=== PATIENT | male | born 1960 | race Caucasian/White ===

== ENCOUNTER 2017-05-24 09:55 | Emergency (ER) | payer OTHER, SELFPAY ==
[2017-05-24 10:23] VITALS: BP 124/84; PULSE 97; RESP 16; TEMP 36.9; O2SAT 96; BMI 25.1
--- NOTE | 2017-05-24 10:50 | ED_ITS ---
[facility] [place] Disposition Clinical Impression: Abdominal tenderness Qualifiers: Abdominal location: unspecified location Presence of rebound: not specified Qualified Code(s): R10.819 - Abdominal tenderness, unspecified site Disposition: Still a Patient Condition on Discharge: Good Referrals: Alda France [Primary Care Provider] - Time of Disposition: 10:55 Medical Decision Making - Medical Records Medical records reviewed: Yes: I reviewed the patient's medical records. Vital Signs: 05/24/17 10:23 Temperature 98.4 F Temperature Source Temporal Artery Scan Pulse Rate [Right] 97 H Respiratory Rate 16 Blood Pressure [Right Arm] 124/84 Blood Pressure Mean [Right Arm] 97 Blood Pressure Source [Right Arm] Automatic Cuff Blood Pressure Position [Right Arm] Sitting 02 Sat by Pulse Oximetry 96 Oxygen Delivery Method Room Air - Physician Consults Physician Consulted: Dr Muro Reason -: Pt condition, Other Comment/Response: Spoke with Dr Santana ER physician about patient and patient presentation and complain. 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 Recommended to patient that he go to main ER for further testing and evaluation for abdominal pain. Patient transfered to Main ER to the care of Dr Santana - Jamie Inquiry Pt receiving controlled substance: No Jamie was queried for this patient: No [facility] [place] HPI - General Stated complaint: back pain, no ao Mode of Arrival: Ambulatory Source of Information: Patient Limitations: No Limitations Description of Symptoms (Recalled from Triage Doc. by RN): LEFT LOW BACK PAIN LEFT FLANK PAIN X3 PAINS HEENT Symptoms (Recalled from RN notes): No Resp Symptoms (Recalled from RN notes): No Skin Symptoms (Recalled from RN notes): No MS Symptoms (Recalled from RN notes): No Functional Status (Recalled from RN notes): N - History of Present Illness Provider Complaint: Patient states that he was changing a tire last week and hurt his lower back. State that he seen his family doctor for it and was given some medication States that for the last 4 days it has continued to get worse. 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 denies weakness in legs, denies trouble with urinating or bowel movements denies fever - Related Data Allergies Allergy/AdvReac Type Severity Reaction Status Date / Time No Known Allergies Allergy Verified 05/24/17 10:27 - Worker's Comp Is this a Worker's Comp case?: No [facility] History I have reviewed the patient's past medical history: Yes - Social History Smoking Status: Current every day smoker Tobacco Type: cigarettes Alcohol Intake: never - Psychiatric History Expresses thoughts of harming self/others: None Suicide Plan Description: No Plan ROS Obtained: Yes All systems reviewed & no additional complaints - Gastrointestinal Gastrointestingal: Reports: abdominal pain - Musculoskeletal Musculoskeletal: Reports back pain, Reports muscle aches, Denies numbness, Denies radiating pain into limb Physical Exam - General General appearance: alert, in no apparent distress - Neck Neck exam: Present: no
[2017-05-24 10:54] VITALS: BP 156/90; PULSE 71; RESP 18; TEMP 36.7; O2SAT 97; BMI 25.2
--- NOTE | 2017-05-24 11:10 | HMH.EDABDPAI ---
ED Disposition Clinical Impression: Low back pain, Prostatic hypertrophy, Pneumonia, Constipation, Secondary polycythemia Abdominal tenderness Qualifiers: Abdominal location: unspecified location Presence of rebound: not specified Qualified Code(s): R10.819 - Abdominal tenderness, unspecified site Disposition: Still a Patient Condition on Discharge: Fair Additional Instructions: Discussed the CT report in full details with the patient and informing that informed him that he needs to stop smoking because of his secondary to have strokes. I stressed that he needs to follow-up with Dr. Fernandes and his primary care physician on the abnormal CT report. Verbalized understanding is on the bedside agreeable. 1- stop smoking . 2- ceftin 500 mg po bid x 10 days. 3- zithromax. 3- mobic 7.5 mg po bid. 4- increase vegetables and dried fruits. 5- follow up with Dr France in AM. 6- take ct report and films to Dr Fernandes. in AM 7- return i fnot better. Prescriptions: Azithromycin [Zithromax 250mg tab] 250 mg PO DIRECTED #6 tab cefUROXime axetil [Ceftin 250mg Tablet] 500 mg PO BID #14 tab Meloxicam [Mobic 7.5mg Tab] 7.5 mg PO BID PRN #20 tab PRN Reason: Moderate Pain Referrals: Alda France [Primary Care Provider] - - Critical Care Critical Care Time: No Attestation: On 05/24/17, the high probability of a clinically significant, sudden or life threatening deterioration of the following system(s) required my full and direct attention, intervention and personal management. The time I documented below is in addition to time spent performing reported procedures but includes the following listed in this critical care notation. Medical Decision Making Vital Signs: 05/24/17 10:23 05/24/17 10:54 Temperature 98.4 F 98.0 F Temperature Source Temporal Artery Scan Oral Pulse Rate [Right] 97 H 71 Respiratory Rate 16 18 Blood Pressure [Right Arm] 124/84 156/90 Blood Pressure Mean [Right Arm] 97 112 Blood Pressure Source [Right Arm] Automatic Cuff Automatic Cuff Blood Pressure Position [Right Arm] Sitting Sitting 02 Sat by Pulse Oximetry 96 97 Oxygen Delivery Method Room Air Room Air - Lab Data Lab Results 05/24/17 11:10: WBC 4.6 L, RBC 6.83 H, Hgb 19.5 H*, Hct 59.4 H, MCV 86.9, MCH 28.3, MCHC 32.6, RDW 13.3, Plt Count 144, MPV 8.2, Neut % (Auto) 42.9, Lymph % (Auto) 44.0, [place] % (Auto) 11.0 H, Eos % (Auto) 0.8, Baso % (Auto) 1.2, Neut # (Auto) 2.0, Lymph # (Auto) 1.9, [place] # (Auto) 0.5, Eos # (Auto) 0.0, Baso # (Auto) 0.1 05/24/17 11:10: Sodium 133 L, Potassium 3.8, Chloride 98, Carbon Dioxide 30, Anion Gap 8.8, BUN 20 H, Creatinine 1.02, Estimated Creat Clear 90, Estimated GFR 76, Est GFR ( Amer) 92, Glucose 106, Calcium 8.3 L, Total Bilirubin 0.4, AST 26, ALT 31, Alkaline Phosphatase 86, Troponin I < 0.02, Total Protein 7.4, Albumin 3.6, Globulin 3.8 H, Albumin/Globulin Ratio 0.9 L, Lipase 74 Result diagrams: 05/24/17 11:10 05/24/17 11:10 Orders (Tests/Meds): ED MEDICATIONS Discontinued Medications Generic Name Dose Route Start Last Admin Trade Name Freq PRN Reason Stop Dose Admin Diatrizoate Meglum/Diatrizoate Sod 30 ml 05/24/17 11:12 05/24/17 11:13 Gastrografin 66%-10% 30ml PO 05/24/17 11:13 30 ml ONCE ONE Administration Famotidine 20 mg 05/24/17 11:09 05/24/17 11:26 Pepcid 20mg/2ml Vial IV 05/24/17 11:10 20 mg ONCE ONE Administration Sodium Chloride 500 mls @ 999 mls/hr 05/24/17 11:15 05/24/17 11:15 Sod Chlor 0.9% 1000ml Bag IV 05/24/17 11:45 Not Given .Q31M CASIMIRO Sodium Chloride 1,000 mls @ 999 mls/hr 05/24/17 11:30 05/24/17 11:26 Sod Chlor 0.9% 1000ml Bag IV 05/24/17 12:30 999 mls/hr .Q1H1M CASIMIRO Administration Iopamidol 75 ml 05/24/17 12:55 05/24/17 12:56 [id number]; 75ml Vial IV 05/24/17 12:56 75 ml ONCE ONE Administration Ketorolac Tromethamine 15 mg 05/24/17 11:09 05/24/17 11:26 Toradol 30mg/Ml
--- NOTE | 2017-05-24 11:14 | ED_ITS ---
ED Disposition Clinical Impression: Low back pain, Prostatic hypertrophy, Pneumonia, Constipation, Secondary polycythemia Abdominal tenderness Qualifiers: Abdominal location: unspecified location Presence of rebound: not specified Qualified Code(s): R10.819 - Abdominal tenderness, unspecified site Disposition: Still a Patient Condition on Discharge: Fair Additional Instructions: Discussed the CT report in full details with the patient and informing that informed him that he needs to stop smoking because of his secondary to have strokes. I stressed that he needs to follow-up with Dr. Fernandes and his primary care physician on the abnormal CT report. Verbalized understanding is on the bedside agreeable. 1- stop smoking . 2- ceftin 500 mg po bid x 10 days. 3- zithromax. 3- mobic 7.5 mg po bid. 4- increase vegetables and dried fruits. 5- follow up with Dr France in AM. 6- take ct report and films to Dr Fernandes. in AM 7- return i fnot better. Prescriptions: Azithromycin [Zithromax 250mg tab] 250 mg PO DIRECTED #6 tab cefUROXime axetil [Ceftin 250mg Tablet] 500 mg PO BID #14 tab Meloxicam [Mobic 7.5mg Tab] 7.5 mg PO BID PRN #20 tab PRN Reason: Moderate Pain Referrals: Alda France [Primary Care Provider] - - Critical Care Critical Care Time: No Attestation: On 05/24/17, the high probability of a clinically significant, sudden or life threatening deterioration of the following system(s) required my full and direct attention, intervention and personal management. The time I documented below is in addition to time spent performing reported procedures but includes the following listed in this critical care notation. Medical Decision Making Vital Signs: 05/24/17 10:23 05/24/17 10:54 Temperature 98.4 F 98.0 F Temperature Source Temporal Artery Scan Oral Pulse Rate [Right] 97 H 71 Respiratory Rate 16 18 Blood Pressure [Right Arm] 124/84 156/90 Blood Pressure Mean [Right Arm] 97 112 Blood Pressure Source [Right Arm] Automatic Cuff Automatic Cuff Blood Pressure Position [Right Arm] Sitting Sitting 02 Sat by Pulse Oximetry 96 97 Oxygen Delivery Method Room Air Room Air - Lab Data Lab Results 05/24/17 11:10: WBC 4.6 L, RBC 6.83 H, Hgb 19.5 H*, Hct 59.4 H, MCV 86.9, MCH 28.3, MCHC 32.6, RDW 13.3, Plt Count 144, MPV 8.2, Neut % (Auto) 42.9, Lymph % ( Auto) 44.0, [place] % (Auto) 11.0 H, Eos % (Auto) 0.8, Baso % (Auto) 1.2, Neut # ( Auto) 2.0, Lymph # (Auto) 1.9, [place] # (Auto) 0.5, Eos # (Auto) 0.0, Baso # (Auto ) 0.1 05/24/17 11:10: Sodium 133 L, Potassium 3.8, Chloride 98, Carbon Dioxide 30, Anion Gap 8.8, BUN 20 H, Creatinine 1.02, Estimated Creat Clear 90, Estimated GFR 76, Est GFR ( Amer) 92, Glucose 106, Calcium 8.3 L, Total Bilirubin 0.4, AST 26, ALT 31, Alkaline Phosphatase 86, Troponin I < 0.02, Total Protein 7.4, Albumin 3.6, Globulin 3.8 H, Albumin/Globulin Ratio 0.9 L, Lipase 74 Result diagrams: 05/24/17 11:10 05/24/17 11:10 Orders (Tests/Meds): ED MEDICATIONS Discontinued Medications Generic Name Dose Route Start Last Admin Trade Name Freq PRN Reason Stop Dose Admin Diatrizoate Meglum/Diatrizoate Sod 30 ml 05/24/17 11:12 05/24/17 11:13 Gastrografin 66%-10% 30ml PO 05/24/17 11:13 30 ml ONCE ONE Administration Famotidine 20 mg 05/24/17 11:09 05/24/17 11:26 Pepcid 20mg/2ml Vial IV
[2017-05-24 11:22] LABS: Red Blood Count 6.83 M/mm3 (4.60-6.20); White Blood Count 4.6 K/mm3 (4.8-10.8)
[2017-05-24 11:23] LABS: Basophils % 1.2 % (0.1-2.0); Eosinophils % 0.8 % (0.1-12.0); Hematocrit 59.4 % (42.0-52.0); Mean Corpuscular HGB Conc 32.6 g/dL (31.8-35.4); Mean Corpuscular Hemoglobin 28.3 pg (27.0-31.2); Mean Corpuscular Volume 86.9 fl (80-94); Mean Platelet Volume 8.2 fl (7.4-10.4); Neutrophils % 42.9 % (37.0-80.0); Platelet Count 144 K/mm3 (142-424); Red Cell Distribution Width 13.3 % (11.5-17.5)
[2017-05-24 11:24] LABS: Basophils # 0.1 K/mm3 (0-0.2); Lymphocytes # 1.9 K/mm3 (0.7-4.5); Monocytes # 0.5 K/mm3 (0.1-1.0)
[2017-05-24 11:39] LABS: Alanine Aminotransferase 31 U/L (12-78); Albumin Level 3.6 gm/dL (3.4-5.0); Albumin/Globulin Ratio 0.9 (1.1-1.8); Alkaline Phosphatase 86 U/L (46-116); Anion Gap 8.8 mEq/L (5-15); Bilirubin,Total 0.4 mg/dL (0.2-1.0); Blood Urea Nitrogen 20 mg/dL (7-18); Calcium 8.3 mg/dL (8.5-10.1); Carbon Dioxide 30 mmol/L (21.0-32.0); Chloride 98 mmol/L (98-107); Creatinine Clearance Estimated 90 mL/min (0-300); Creatinine,Serum 1.02 mg/dL (0.70-1.30); Estimated Glomerular Filt Rate 76 ml/min (>60); GFR (African American) 92 ML/MIN (>60); Globulin 3.8 gm/dl (1.3-3.2); Glucose 106 mg/dL (74-106); Lipase 74 u/L (73-393); Sodium 133 mmol/L (136-145); Total Protein,Serum 7.4 gm/dL (6.4-8.2); Troponin I < 0.02 ng/ml (0.00-0.06)
[2017-05-24 11:41] LABS: Hemoglobin 19.5 g/dL (14.1-18.0)
[2017-05-24 11:43] LABS: Aspartate Amino Transferase 26 U/L (15-37); Potassium 3.8 mmoL/L (3.5-5.1)
--- NOTE | 2017-05-24 12:34 | CT_ITS ---
CT abdomen pelvis w con CLINICAL INDICATION: Abdominal pain, low back pain, prostate issues ITS.REASON: ABD PAIN ORDERING PHYSICIAN: Ally Muro MD PATIENT AGE: 56 years COMPARISON: None TECHNIQUE: Axial images obtained with sagittal and coronal reformats. PROCEDURE: Oral Contrast: Gastroview IV Contrast: 75 mL's of [id number]. FINDINGS: There are atelectatic changes in the lung bases. Patchy density is present in the right upper lobe inferiorly portal area of infiltrate or atelectatic changes are present in the left lower lobe, right lower lobe, and lingula. There is a noncalcified 5 mm nodule in the right lung base posteriorly laterally. There is a 1.4 cm isodense lesion in the caudate lobe of the liver consistent with a hepatic cyst. Liver is otherwise unremarkable. No calcified gallstones evident. Patient reports having prior splenic surgery. There is an oval soft tissue density in the left upper quadrant at 8.4 x 5 cm. These may very well represent residual splenic tissue but does not have a normal shape of the spleen. No renal mass or renal calculi. No hydronephrosis. There is mild amount retained colonic feces in the ascending colon. No evidence of appendicitis. No evidence of diverticulitis. There are few small lymph nodes in the mesentery's. The prostate is enlarged is some heterogeneous density. The prostate measures up to 5.5 cm transverse and 4.9 cm AP with indentation upon the base of the urinary bladder. Urinary bladder is distended. There are bladder projects nearly to the level the umbilicus. No pelvic fluid collections or focal inflammatory changes evident. No acute fracture or dislocation. No suspicious lytic or blastic lesions. Specifically, the lumbar spine has an unremarkable appearance as does the bony pelvis. A small cortical defect involves the left femoral neck anteriorly which appears benign. IMPRESSION: 1. Patchy infiltrate in the right upper lobe inferiorly with atelectatic changes in both lower lung zones and noncalcified 5 mm nodule in the right lung base 2. Oval soft tissue density in the left upper quadrant which may represent residual splenic tissue. A normal spleen is not identified 3. Enlarged prostate with distended urinary bladder. 4. No evidence of bony metastatic foci
[2017-05-24 14:06] VITALS: BP 120/90; PULSE 66; RESP 20; TEMP 36.4; O2SAT 98
[2017-05-24 14:43] LABS: Apearance,Urine Clear (Clear); Color,Urine Yellow (Yellow); Glucose,Urine (UA) Negative (Negative); Ketones,Urine Negative (Negative); PH,Urine 5.5 (5.0-8.5); Protein,Urine Trace (Negative); Specific Gravity, Urine 1.025 (1.005-1.030)
[2017-05-24 14:44] LABS: Bilirubin,Urine Negative (Negative); Blood, Urine Negative (Negative); UTC Leukocyte Esterase,Urine Negative (Negative); UTC Nitrate,Urine Negative (Negative); Urobilinogen,Urine 0.2 EU/dl (0.2)
[2017-05-25 11:39] LABS: PSA, Free 8.18 ng/mL; Prostate Specific Ag 19.4 ng/mL (0.0-4.0)
== END 2017-05-24 14:18 | disposition still patient (30) ==
LOC: UTC 09:59 → ER 10:54
PROVIDERS: Nurse Practitioner; Emergency Provider Emergency Medicine; Family Provider Family Medicine; PCP Family Medicine
DX: J18.9 Pneumonia, unspecified organism (principal); K59.00 Constipation, unspecified; N40.0 Benign prostatic hyperplasia without lower urinary tract symptoms; D75.1 Secondary polycythemia; F17.210 Nicotine dependence, cigarettes, uncomplicated
CPT/HCPCS: 74177; 80053; 81003; 83690; 84153; 84154; 84484; 85025; 87086; 93005; 96365; 96366; 96375; 99284; Q9967

== ENCOUNTER 2023-02-23 05:58 | Emergency (ER) | payer OTHER, SELFPAY ==
[2023-02-23 05:59] VITALS: BP 162/118; PULSE 64; RESP 16; TEMP 36.6; O2SAT 97; BMI 26.6
--- NOTE | 2023-02-23 06:39 | HMH.EDGENADL ---
Discharge Plan Disposition Patient Disposition: Home, Self-Care Condition: Good Prescriptions Prescriptions: New methocarbamol 750 mg tablet 750 mg PO Q8H PRN (Reason: pain) Qty: 20 0RF naproxen 500 mg tablet 500 mg PO BID PRN (Reason: pain) Qty: 20 0RF lidocaine [Lidoderm] 5 % adhesive patch,medicated 1 patch topical DAILY Qty: 15 0RF Rx Instructions: leave on most painful area for up to 12 hrs No Action cyclobenzaprine 10 MG tablet 10 mg PO TID Patient Comments: hydrocodone-acetaminophen 1 EACH tablet 1 ea PO Q6H ciprofloxacin HCl 500 MG tablet 500 mg PO BID Patient Comments: tamsulosin 0.4 MG capsule 0.4 mg PO DAILY Patient Comments: cefuroxime axetil 250 MG tablet 500 mg PO BID Qty: 14 0RF azithromycin 250 MG tablet 250 mg PO DIRECTED Qty: 6 0RF Rx Instructions: Take two (2) tablets on day #1, then one (1) tablet day #2 thru #5 meloxicam 7.5 MG tablet 7.5 mg PO BID PRN (Reason: Moderate Pain) Qty: 20 0RF Referrals Follow up/Referrals: Alda France [Primary Care Provider] - See instructions Activity Restrictions/Add. Instructions Additional Instructions/Restrictions: You were evaluated in the emergency department today. Please package pick up your prescriptions and take them as needed for severe pain. You may also take Tylenol in addition to this. Follow-up with your primary care provider. Return to the emergency department for new or worsening symptoms. Clinical Impressions Clinical Impression: Acute left-sided low back pain Qualifiers: Sciatica presence: without sciatica Qualified Code(s): M54.50 - Low back pain, unspecified Instructions Patient Instructions: DI for Low Back Pain Discharge ED Provider: Ursula Kirkpatrick General Adult HPI General Chief complaint: Back Pain/Injury Stated complaint: Upper back pain Time Seen by Provider: 02/23/23 06:10 Mode of Arrival: Ambulatory Source of Information: Patient Limitations: No Limitations Description of Symptoms (Recalled from ER Triage Doc. by RN): pt reports woke up with left side of back hurting, reports worse with movement and tender to touch, reports he thinks he pulled a muscle, reports history of back injuries History of Present Illness HPI narrative: This patient is a 62-year-old male with a history of chronic back pain presenting to the emergency department for evaluation with concern for left-sided back pain. He states that he woke up this morning and it was hurting. He states that he thinks he pulled a muscle, but he cannot remember any specific injuries. He notes that it is painful with bending and twisting. He denies any numbness, tingling, weakness, saddle anesthesia, incontinence, retention, dysuria, polyuria, or other concerns. No fevers, history of drug use, or other alarm issues Related Data Home Medications Medication Instructions Recorded Confirmed ciprofloxacin HCl 500 mg tablet 500 mg PO BID Infection 05/24/17 05/24/17 cyclobenzaprine 10 mg tablet 10 mg PO TID Pain 05/24/17 05/24/17 hydrocodone 5 mg-acetaminophen 325 1 ea PO Q6H Pain 05/24/17 05/24/17 mg tablet tamsulosin 0.4 mg capsule 0.4 mg PO DAILY prostate 05/24/17 05/24/17 Previous Rx's Medication Instructions Recorded azithromycin 250 mg tablet 250 mg PO DIRECTED #6 tabs 05/24/17 cefuroxime axetil 250 mg tablet 500 mg PO BID #14 tabs 05/24/17 meloxicam 7.5 mg tablet 7.5 mg PO BID PRN Moderate Pain 05/24/17 #20 tabs lidocaine 5 % topical patch 1 patch topical DAILY #15 ea 02/23/23 (Lidoderm) methocarbamol 750 mg tablet 750 mg PO Q8H PRN pain #20 tabs 02/23/23 naproxen 500 mg tablet 500 mg PO BID PRN pain #20 tabs 02/23/23 Allergies Allergy/AdvReac Type Severity Reaction Status Date / Time No Known Allergies Allergy Verified 05/24/17 10:58 [facility] Disclaimer: The information contained in this section may have been updated after the patient was
[2023-02-23 07:03] VITALS: BP 160/87; PULSE 64; RESP 16; TEMP 36.6; O2SAT 97
== END 2023-02-23 07:04 | disposition home or self-care (01) ==
PROVIDERS: Emergency Provider Emergency Medicine; PCP Family Medicine
DX: M54.50 Low back pain, unspecified (principal); M54.6 Pain in thoracic spine; F17.210 Nicotine dependence, cigarettes, uncomplicated
CPT/HCPCS: 96372; 99283

== ENCOUNTER 2024-01-21 23:29 | Observation (INO) | payer OTHER, SELFPAY ==
[2024-01-21 23:29] VITALS: BP 173/114; PULSE 71; RESP 18; TEMP 36.6; O2SAT 96; BMI 24.3
--- NOTE | 2024-01-21 23:31 | CT_ITS ---
PROCEDURE INFORMATION: Exam: CTA Neck With Contrast Exam date and time: 01/21/2024 11:58 PM Age: 63 years old Clinical indication: Stroke-like symptoms; Speech disturbance; Additional info: TIA slurred speech TECHNIQUE: Imaging protocol: Computed tomographic angiography of the neck with contrast. Exam focused on the cervical segments of the vasculature. 3D rendering (Not supervised by radiologist): MIP and/or 3D reconstructed images were created by the technologist. Radiation optimization: All CT scans at this facility use at least one of these dose optimization techniques: automated exposure control; mA and/or kV adjustment per patient size (includes targeted exams where dose is matched to clinical indication); or iterative reconstruction. Contrast material: ISOVUE; Contrast volume: 80 ml; Contrast route: INTRAVENOUS (IV); COMPARISON: CT ANGIO HEAD 01/21/2024 11:58 PM FINDINGS: Right common carotid artery: No stenosis. No dissection or occlusion. Right internal carotid artery: No stenosis of the extracranial segment. No dissection or occlusion. Right external carotid artery: No visible occlusion. Left common carotid artery: No stenosis. No dissection or occlusion. Left internal carotid artery: The proximal left internal carotid artery has 30% stenosis related to atherosclerotic changes. Left external carotid artery: No visible occlusion. Right vertebral artery: No stenosis. No dissection or occlusion. Left vertebral artery: No stenosis. No dissection or occlusion. Soft tissues: No significant soft tissue swelling. Bones/joints: No acute fracture. Lungs: Emphysema is present in the lung apices. There is a calcified left upper lobe granuloma present. IMPRESSION: No occlusion or significant stenosis. REFERENCES: NASCET CRITERIA. The degree of stenosis in the cervical segment of the internal carotid artery is based on NASCET criteria. Normal is no stenosis. Mild is less than 50% stenosis. Moderate is 50-69% stenosis. Severe is 70% to 99% stenosis. Total occlusion is no detectable patent lumen.
--- NOTE | 2024-01-21 23:31 | CT_ITS ---
PROCEDURE INFORMATION: Exam: CT Head Without Contrast Exam date and time: 01/21/2024 11:55 PM Age: 63 years old Clinical indication: Stroke-like symptoms; Speech disturbance; Additional info: TIA slurred speech TECHNIQUE: Imaging protocol: Computed tomography of the head without contrast. Radiation optimization: All CT scans at this facility use at least one of these dose optimization techniques: automated exposure control; mA and/or kV adjustment per patient size (includes targeted exams where dose is matched to clinical indication); or iterative reconstruction. Other technique: STROKE PROTOCOL was implemented. COMPARISON: No relevant prior studies available. FINDINGS: Brain: No acute infarct. No hemorrhage. Unremarkable white matter for age. No midline shift. Cerebral ventricles: No ventriculomegaly. Paranasal sinuses: No significant inflammation. No fluid levels. Mastoid air cells: No significant inflammation. Bones: No acute fracture. Soft tissues: Unremarkable. IMPRESSION: No acute intracranial abnormality. ASSESSMENT: ASPECTS ([place] Stroke Program Early CT Score) is 10.
--- NOTE | 2024-01-21 23:31 | CT_ITS ---
PROCEDURE INFORMATION: Exam: CTA Head With Contrast, Arteriography Exam date and time: 01/21/2024 11:58 PM Age: 63 years old Clinical indication: Stroke-like symptoms; Speech disturbance; Additional info: TIA slurred speech TECHNIQUE: Imaging protocol: Computed tomographic angiography of the head with contrast. Exam focused on the arteries. 3D rendering (Not supervised by radiologist): MIP and/or 3D reconstructed images were created by the technologist. Radiation optimization: All CT scans at this facility use at least one of these dose optimization techniques: automated exposure control; mA and/or kV adjustment per patient size (includes targeted exams where dose is matched to clinical indication); or iterative reconstruction. Contrast material: ISOVUE; Contrast volume: 80 ml; Contrast route: INTRAVENOUS (IV); COMPARISON: CT HEAD/BRAIN WO CON 01/21/2024 11:55 PM FINDINGS: ANTERIOR CIRCULATION: Right internal carotid artery: Intracranial segment is patent with no significant stenosis. No aneurysm. Right middle cerebral artery: The proximal M1 segment of the right MCA has mild stenosis. Right anterior cerebral artery: No occlusion or significant stenosis. No aneurysm. Left internal carotid artery: Intracranial segment is patent with no significant stenosis. No aneurysm. Left middle cerebral artery: The proximal M1 segment of the left MCA has focal high-grade stenosis with near occlusion with string of opacification. The vessel distally is patent. Left anterior cerebral artery: No occlusion or significant stenosis. No aneurysm. POSTERIOR CIRCULATION: Right vertebral artery: No occlusion or significant stenosis. No aneurysm. Left vertebral artery: No occlusion or significant stenosis. No aneurysm. Basilar artery: No occlusion or significant stenosis. No aneurysm. Right posterior cerebral artery: No occlusion or significant stenosis. No aneurysm. Left posterior cerebral artery: No occlusion or significant stenosis. No aneurysm. Brain: No definite mass, mass effect, or midline shift. Cerebral ventricles: No ventriculomegaly. Bones/joints: No acute fracture. Soft tissues: Unremarkable. IMPRESSION: The proximal M1 segment of the left MCA has focal high-grade stenosis/near occlusion with string of opacification. Distally the vessel is patent. The intracranial vasculature is otherwise patent.
--- NOTE | 2024-01-21 23:32 | HMH.EDGENADL ---
Discharge Plan Disposition Patient Disposition: Admitted Condition: Good Clinical Impressions Clinical Impression: Brain TIA Middle cerebral artery stenosis Qualifiers: Laterality: left Qualified Code(s): I66.02 - Occlusion and stenosis of left middle cerebral artery Discharge ED Provider: Obed Sarah Adult HPI General Chief complaint: Neuro Symptoms/Deficit Stated complaint: possible CVA Time Seen by Provider: 01/21/24 23:30 History of Present Illness HPI narrative: 63-year-old male who reports no prior past medical history, is currently on no medications presents for TIA-like symptoms. He reports that he was lying in bed and had acute onset of slurred speech at approximately 10 AM. He was with his . Per EMS, the episode lasted for approximately 3 minutes and then completely resolved. Upon their arrival he had an NIH of 0 and had no symptoms during the 30-minute trip en route. They report that he was hypertensive with systolics over 200 initially. The patient reports he has never had any like this happen before. He reports that his body felt weak and it was not functioning properly all over. He was unable to discern any unilateral symptoms. Sometime after the episode began he developed a headache. He reports he still has the headache but it feels better now. Related Data Allergies Allergy/AdvReac Type Severity Reaction Status Date / Time No Known Allergies Allergy Verified 05/24/17 10:58 [facility] Disclaimer: The information contained in this section may have been updated after the patient was seen, as this information can be updated by other users. Medical History Rupture, spleen Surgical History History of prostate surgery H/O hernia repair Social History Smoking Status: Current every day smoker tobacco type: cigarettes alcohol intake: former current occupational status: employed Travel in the last 8 weeks: None ROS Obtained: Yes All systems reviewed & no additional complaints except as documented Physical Exam General General appearance: alert and in no apparent distress Head Head exam: atraumatic and normocephalic Eye Eye exam: Present normal appearance, PERRL and EOMI ENT ENT exam: Present normal oropharynx and normal external ear exam Neck Neck exam: Present normal inspection and full ROM Chest Chest inspection: Present normal inspection and symmetric chest wall rise; Absent tenderness Respiratory Respiratory exam: Present normal lung sounds bilaterally; Absent respiratory distress Cardiovascular Cardiovascular exam: Present regular rate and normal rhythm Abdominal Exam Abdominal exam: Present soft; Absent distention, tenderness or guarding Extremities Exam Extremities exam: Present normal inspection; Absent edema or joint swelling Back Exam Back exam: Present normal inspection; Absent tenderness Neurological Exam Neurological exam: Present alert, oriented X3 and other (NIH 0); Absent motor sensory deficit Psychiatric Psychiatric exam: Present normal affect and normal mood Skin Skin exam: Present warm, dry and normal color Lymphatic Lymphatic Findings: no adenopathy Medical Decision Making Medical Records Medical records reviewed: Yes I reviewed the patient's medical records. Screening: Per USPSTF and CDC recommendations, given the prevalence of disease in our region, it is our hospital?s policy to screen for HIV and viral Hepatitis for all patients aged 18 and over and those with ongoing risk factors. Jamie Inquiry Pt receiving controlled substance: No Jamie was queried for this patient: No Vital Signs: 01/21/24 23:29 01/22/24 00:00 01/22/24 00:30 Temperature 97.9 F Temperature Source Oral Pulse Rate 69 67 Pulse Rate [Left Radial] 71 Respiratory Rate 18 Blood Pressure 147/84 H 148/87 H Blood Pressure [Right Arm] 173/114 H Blood Pressure Mean [Right Arm] 133 Blood Pressure Source Blood Pressure Source [Right Arm] Automatic Cuff Blood Pressure Position Blood Pressure Position [Right Arm] Supine 02 Sat by Pulse Oximetry 96 96 97 Oxygen Delivery Method Room Air 01/22/24 01:01 01/22/24 01:30 01/22/24 02:00 Temperature Temperature Source Pulse Rate 67 61 63 Pulse Rate [Left Radial] Respiratory Rate Blood Pressure 166/93 H 151/88 H 157/95 H Blood Pressure [Right Arm] Blood Pressure Mean [Right Arm] Blood Pressure Source Blood Pressure Source [Right Arm] Blood Pressure Position Blood Pressure Position [Right Arm] 02 Sat by Pulse Oximetry 98 96 95 Oxygen Delivery Method 01/22/24 02:31 01/22/24 02:38 Temperature 97.9 F Temperature Source Oral Pulse Rate 62 61 Pulse Rate [Left Radial] Respiratory Rate 18 Blood Pressure 174/113 H 172/114 H Blood Pressure [Right Arm] Blood Pressure Mean [Right Arm] Blood Pressure Source Automatic Cuff Blood Pressure Source [Right Arm] Blood Pressure Position Supine Blood Pressure Position [Right Arm] 02 Sat by Pulse Oximetry 98 Oxygen Delivery Method Room Air Lab Data Lab results reviewed: Yes I reviewed the patient's lab results. Lab Results 01/21/24 23:34: WBC 9.1, RBC 5.95, Hgb 17.3, Hct 51.1, MCV 85.9, MCH 29.1, MCHC 33.9, RDW 14.0, Plt Count 254, MPV 7.1 L, Neut % (Auto) 42.0, Lymph % (Auto) 44.0, [place] % (Auto) 7.8, Eos % (Auto) 4.7, Baso % (Auto) 1.5, Neut # (Auto) 3.8, Lymph # (Auto) 4.0, [place] # (Auto) 0.7, Eos # (Auto) 0.4, Baso # (Auto) 0.1, PT 11.2, INR 1.00, APTT 27.6, Sodium 138, Potassium 3.6, Chloride 101, Carbon Dioxide 28, Anion Gap 12.6, BUN 17, Creatinine 1.00, Estimated Creat Clear 84, Estimated GFR 76, Est GFR ( Amer) 92, Glucose 116 H, Calcium 8.7, Total Bilirubin 0.7, AST 26, ALT 21, Alkaline Phosphatase 60, Troponin I < 0.01, Total Protein 6.9, Albumin 4.0, Globulin 2.9, Albumin/Globulin Ratio 1.4, Triglycerides 183 H, Cholesterol 167, LDL Cholesterol Direct 111.40, VLDL Cholesterol 37, HDL Cholesterol 39 L, Cholesterol/HDL Ratio 4.3 H, HIV 1&2 Antibody Rapid Nonreactive 01/22/24 00:46: Urine Color Yellow, Urine Appearance Clear, Urine pH 6.0, Ur Specific [place] 1.010, Urine Protein Negative, Urine Glucose (UA) Negative, Urine Ketones Negative, Urine Blood Negative, Urine Nitrate Negative, Urine Bilirubin Negative, Urine Urobilinogen 0.2, Ur Leukocyte Esterase Negative, Urine WBC Occasional, Ur Squamous Epith Cells Occasional, Urine Bacteria Trace, Urine Opiates Screen Negative, Urine Methadone Screen Negative, Ur Barbituates Screen Negative, Ur Phencyclidine Scrn Negative, Ur Amphetamines Screen Negative, U Benzodiazepines Scrn Negative, Urine Cocaine Screen Negative, U Marijuana (THC) Screen Negative 01/21/24 23:34 01/21/24 23:34 Orders (Tests/Meds): ED MEDICATIONS Generic Name Dose Route Start Last Admin Trade Name Freq PRN Reason Stop Dose Admin Acetaminophen 650 mg 01/22/24 02:44 Acetaminophen 325mg Tab PO 02/21/24 02:43 Q6HP PRN Fever or Mild Pain (1-3) Aspirin 81 mg 01/22/24 09:00 Aspirin Ec 81mg Tablet PO 02/21/24 08:59 DAILY CASIMIRO Atorvastatin Calcium 80 mg 01/22/24 21:00 Atorvastatin 40mg Tablet PO 02/21/24 20:59 HS CASIMIRO Clopidogrel Bisulfate 75 mg 01/22/24 09:00 Clopidogrel 75mg Tab PO 02/21/24 08:59 DAILY CASIMIRO Miscellaneous 1 each 01/22/24 02:44 Consider Pt For Statin At Discharge-Stroke NOTAPPLIC 02/21/24 02:43 NEEDED PRN Reminder for med @discharge Nicotine 21 mg 01/22/24 09:00 Nicotine 21mg/24hr Patch TD 02/21/24 08:59 DAILY CASIMIRO Sodium Chloride 10 ml 01/21/24 23:30 Sodium Chloride 0.9% 10ml Flush Syringe IV 02/20/24 23:29 NEEDED PRN Maintain IV Site Discontinued Medications Generic Name Dose Route Start Last Admin Trade Name Freq PRN Reason Stop Dose Admin Aspirin 324 mg 01/22/24 01:05 01/22/24 01:08 Aspirin 81mg Chewable Tablet PO 01/22/24 01:06 324 mg ONCE ONE Administration Atorvastatin Calcium 40 mg 01/22/24 01:05 01/22/24 01:16 Atorvastatin 40mg Tablet PO 01/22/24 01:06 40 mg ONCE ONE Administration Iopamidol 80 ml 01/22/24 00:01 01/22/24 00:02 Iopamidol-370 (76%);100ml Bottle IV 01/22/24 00:02 80 ml ONCE ONE Administration Sodium Chloride 50 ml 01/22/24 00:01 01/22/24 00:02 0.9 % Sodium Chloride 50 Ml Vial IV 01/22/24 00:02 50 ml ONCE ONE Administration Sodium Chloride 10 ml 01/22/24 00:01 01/22/24 00:03 Sodium Chloride 0.9% 10ml Syr (Rad Only) IV 01/22/24 00:02 10 ml ONCE ONE Administration ORDERS Category Date Time Status CT angio head Stat Cat Scan 01/21/24 23:[address] angio neck Stat Cat Scan 01/21/24 23:[address] head/brain wo con Stat Cat Scan 01/21/24 23:31 Completed Activated Partial Thrombo Time Stat Lab 01/21/24 23:34 Completed Complete Blood Count Auto Diff Stat Lab 01/21/24 23:34 Completed Comprehensive Metabolic Panel Stat Lab 01/21/24 23:34 Completed Drug Screen,Urine Stat Lab 01/21/24 23:31 Completed HIV (1&2) Antibody Rapid Stat Lab 01/21/24 23:34 Completed Hep C Ab with Reflex to RNA Stat Lab 01/21/24 23:41 Received Lipid Panel Stat Lab 01/21/24 23:34 Completed Prothrombin Time INR Stat Lab 01/21/24 23:34 Completed Troponin I Q3H Lab 01/22/24 03:05 Completed Troponin I Q3H Lab 01/22/24 05:45 Ordered Troponin I Stat Lab 01/21/24 23:34 Completed Urinalysis and Microscopic Stat Lab 01/22/24 00:46 Completed ECG Data Tracing #1: I reviewed this ECG and interpreted as documented below: Sinus rhythm, rate of 63, no significant ST elevation, no evidence of arrhythmia ECG initial impression date: 01/21/24 ECG initial impression time: 23:47 HEART Score History (anamnesis): Slightly suspicious ECG: Normal Age: 45-65 years Risk factors: 1-2 risk factors Troponin: </= normal limit HEART Score: 2 Medical Decision Narrative: 63-year-old male with no reported past medical history presents with apparent TIA, approximately 3 minutes of slurred speech that spontaneously resolved, occurring about an hour and half prior to arrival. History was obtained via interactive discussion with patient, EMS, family. On arrival, patient is [afebrile, hemodynamically stable, satting appropriately, alert, oriented x4, GCS 15], moving all extremities spontaneously. Full physical exam performed and significant for NIH of 0. Patient complains of continued mild headache. Blood pressure 187/108 on arrival. Differential includes but is not limited to ischemic stroke, hemorrhagic stroke, TIA, hypertensive emergency, hypertensive urgency, seizure, hypoglycemia. Workup initiated including emergent CT head, CTA head neck, stroke labs, EKG. Patient was not given TNK as he has NIH of 0 and all of his symptoms have resolved. On re-evaluation, patient [remains afebrile, HD stable.] Laboratory workup independently interpreted by me and significant for no significant leukocytosis, normal renal function. Imaging independently interpreted by me and significant for no evidence of intracranial bleeding. Patient does have severe left M1 stenosis. I had an interim discussion with radiologist regarding these results. See radiology read for full review of final results. Given patient history, exam and workup, patient's presentation most likely represents TIA secondary to left M1 stenosis. Patient was given full dose aspirin and a statin. I had a interactive discussion with the stroke attending injection press operator the [facility], Dr. Goldsmith. She reports that the patient is not a candidate for any intervention at this time given the presentation and imaging. She recommends medical management with aspirin and Plavix and high-dose statin as well as an inpatient echo and MRI. They will call and schedule outpatient follow-up with the neurology team via the transfer center. Given this, patient is appropriate for admission to our facility. I had a interactive discussion with the hospitalist on-call for this admission. Procedures Risk/Benefits of Procedure(s) Were Explained: Yes Critical Care Critical Care Time Critical Care Time: Yes Attestation: On 01/21/24, the high probability of a clinically significant, sudden or life threatening deterioration of the following system(s) neuro required my full and direct attention, intervention and personal management. The time I documented below is in addition to time spent performing reported procedures but includes the following listed in this critical care notation. Total Time Total Critical Care Time: 70
--- NOTE | 2024-01-21 23:46 | ECG_ITS ---
APPROVED REPORT Exam: Resting ECG HR:63 bpm ECG Measurements Heart Rate 63 AXES ID 148 P 69 QRSd 125 QRS 75 QT 432 T 58 QTc 439 Conclusion SINUS RHYTHM BORDERLINE ECG UNCONFIRMED REPORT Electronically signed by : SHAKA SILVA, 01/22/2024 05:26:44
[2024-01-21 23:47] LABS: Basophils # 0.1 K/mm3 (0-0.2); Basophils % 1.5 % (0.1-2.0); Eosinophils # 0.4 K/mm3 (0.0-0.4); Eosinophils % 4.7 % (0.1-12.0); Hematocrit 51.1 % (42.0-52.0); Hemoglobin 17.3 g/dL (14.1-18.0); Mean Corpuscular HGB Conc 33.9 g/dL (31.8-35.4); Mean Corpuscular Hemoglobin 29.1 pg (27.0-31.2); Mean Corpuscular Volume 85.9 fl (80-94); Mean Platelet Volume 7.1 fl (7.4-10.4); Monocytes # 0.7 K/mm3 (0.1-1.0); Monocytes % 7.8 % (1.7-9.3); Neutrophils # 3.8 K/mm3 (1.8-7.8); Platelet Count 254 K/mm3 (142-424); Red Blood Count 5.95 M/mm3 (4.60-6.20); White Blood Count 9.1 K/mm3 (4.8-10.8)
[2024-01-21 23:54] LABS: Alanine Aminotransferase 21 U/L (12-78); Albumin/Globulin Ratio 1.4 (1.1-1.8); Alkaline Phosphatase 60 U/L (38-126); Anion Gap 12.6 mEq/L (5-15); Aspartate Amino Transferase 26 U/L (17-59); Bilirubin,Total 0.7 mg/dl (0.2-1.3); Blood Urea Nitrogen 17 mg/dl (9-20); Calcium 8.7 mg/dl (8.4-10.2); Carbon Dioxide 28 mmol/L (22.0-30.0); Chloride 101 mmol/L (98-107); Chol/HDL Ratio 4.3 (1-3.5); Cholesterol 167 mg/dl (140-200); Creatinine Clearance Estimated 84 mL/min (50-200); Estimated Glomerular Filt Rate 76 ml/min (>60); GFR (African American) 92 ML/MIN (>60); Globulin 2.9 g/dL (1.3-3.2); Glucose 116 mg/dl (74-100); HDL Cholesterol 39 mg/dl (40-60); Potassium 3.6 mmoL/L (3.5-5.1); Sodium 138 mmol/L (136-145); Total Protein,Serum 6.9 g/dl (6.3-8.2); Triglycerides 183 mg/dl (30-150); VLDL Cholesterol 37 mg/dL (0-40)
[2024-01-21 23:56] LABS: Activated Partial Thrombo Time 27.6 seconds (22.8-30.6); Prothrombin Time 11.2 seconds (10.1-12.5)
[2024-01-22] VITALS (11 sets, daily range): BP systolic 130–174; BP diastolic 48–114; PULSE 50–69; RESP 16–21; TEMP 36.5–36.6; O2SAT 94–100; BMI 24.9
[2024-01-22] MEDS: 0.9 % SODIUM CHLORIDE 50 ML VIAL IV (00:02)
[2024-01-22] MEDS: IOPAMIDOL-370 (76%);100ML BOTTLE 80 ML IV (00:02)
[2024-01-22] MEDS: SODIUM CHLORIDE 0.9% 10ML SYR (RAD ONLY) 10 ML IV (00:03)
[2024-01-22 00:12] LABS: Troponin I < 0.01 ng/ml (0.00-0.034)
[2024-01-22 00:38] LABS: HIV (1&2) Antibody Rapid NONREACTIVE (NONREACTIVE)
[2024-01-22 00:50] LABS: Microscopic, Urine URINE MICROSCOPIC (MICROSCOPIC)
[2024-01-22 00:53] LABS: Appearance,Urine CLEAR (Clear); Bilirubin,Urine Negative (Negative); Blood, Urine Negative (Negative); Color,Urine YELLOW (Yellow); Glucose,Urine (UA) Negative (Negative); Ketones,Urine Negative (Negative); Leukocyte Esterase,Urine Negative (Negative); Nitrate,Urine Negative (Negative); Protein,Urine Negative (Negative); Urobilinogen,Urine 0.2 EU/dl (0.2)
[2024-01-22] MEDS: ASPIRIN 81MG CHEWABLE TABLET 324 MG PO (01:08)
[2024-01-22 01:09] LABS: Bacteria,Urine Trace /lpf; Squamous Epithelial Cell,Urine Occasional #/hpf (0-5); WBC,Urine Occasional #/hpf (0-3)
[2024-01-22] MEDS: ATORVASTATIN 40MG TABLET 40 MG PO (01:16)
[2024-01-22 01:57] LABS: Barbiturates Screen,Urine Negative ng/ml (<200); Benzodiazepines Screen,Urine Negative ng/ml (<200)
[2024-01-22 01:58] LABS: Amphetamine/Metha Screen,Urine Negative ng/ml (<1000); Methadone Screen,Urine Negative ng/ml (<300)
[2024-01-22 01:59] LABS: Cannabinoid Screen,Urine Negative ng/ml (<50)
[2024-01-22 02:00] LABS: Cocaine Screen,Urine Negative ng/ml (<300)
[2024-01-22 02:01] LABS: Opiate Screen,Urine Negative ng/ml (<300)
[2024-01-22 02:02] LABS: Phencyclidine Screen,Urine Negative ng/ml (<25)
--- NOTE | 2024-01-22 02:44 | CA_ITS ---
APPROVED REPORT EXAM: Comprehensive 2D, Doppler, and color-flow Echocardiogram Ergonomics Technician: Abigail Miller CRT Ht: 5 ft 10 in Wt: 170lbs BSA: 1.95 BP: 172/114 mmHg Indications: TIA like symptoms 3 minutes of slurred speech, smoker, B/S ordered Echo Enhancing Agent Indication: Rule out Shunt Agent(s) / Amount(s) Used: Agitated Saline 3 cc Comments: B/S ordered appears negative 2D Dimensions LA Volume 31.50 mL LA Volume Index 15.80 mL/m2 (M/F) 16-34 M-Mode Dimensions RVDd 2.07 cm (0.9-2.6) LA Diam 3.04 cm (1.9-4.0) LVDd 5.25 cm (3.5-5.7) LVDs 3.57 cm (3.5-5.7) IVSd 2.11 cm (0.6-1.1) PWd 0.71 cm (0.6-1.1) EF (Teich) 59.70% FS 32.00% EDV (Teich) 132.40 mL TAPSE 2.13 (<1.7) ESV (Teich) 53.30 mL LV Diastology E Decel Time 222 (160-240 msec) E/A Ratio 1.12 MED A' 14.50 cm/s LAT A' 10.60 cm/s Aortic Valve AO Peak GR. 5.30 mmHg Mitral Valve MV A Velocity 60.0 (40-130 cm/s) E/A Ratio 1.12 Pulmonary Valve PV Peak Velocity 98.0 (50-150 cm/s) Tricuspid Valve TR P. Velocity 256.00 cm/s RAP Estimate 10.00 mmHg RVSP 36.30 mmHg Left Ventricle The left ventricle is normal size. The left ventricular systolic function is normal. The left ventricular ejection fraction is within the normal range. There is normal left ventricular wall thickness. There is normal LV segmental wall motion. The left ventricular diastolic function is normal. LVEF is 55%. Right Ventricle Right ventricle is mildly dilated. The right ventricular systolic function is normal. Atria The left atrium size is normal. The right atrium size is normal. There is no Doppler evidence of interatrial shunt. Agitated saline administration at rest and with Valsalva demonstrates no evidence of interatrial shunt. Aortic Valve The aortic valve opens well. There is no aortic valvular stenosis. No aortic regurgitation is present. Mitral Valve The mitral valve is normal in structure. No evidence of mitral valve stenosis. Trace mitral regurgitation. Tricuspid Valve Tricuspid valve is grossly normal in structure and function. Trace tricuspid regurgitation. There is insufficient TR jet to estimate RVSP. Pulmonic Valve The pulmonary valve is normal in structure. Trace pulmonic regurgitation. Great Vessels The aortic root is normal in size. The ascending aorta is normal in size. IVC is normal in size and collapses >50% with inspiration. Pericardium There is no pericardial effusion. Other Information Study Quality: Fair Conclusion Normal biventricular systolic function. Mild RV dilation. No significant valvular stenosis or regurgitation. There is no Doppler evidence of interatrial shunt. Agitated saline administration at rest and with Valsalva demonstrates no evidence of interatrial shunt. Electronically signed by : Hallie Hardwick MD 01/22/2024 11:39:52
--- NOTE | 2024-01-22 02:47 | PC.NURSE ---
Patient arrived to floor via wheelchair from ED at 02:47.
--- NOTE | 2024-01-22 02:50 | P.HP_ITS ---
<Statement entered by Emile Marcano MD - 01/22/24 21:48> Rounded on patient after nurse practitioner. ?Personally examined and interviewed patient. Agree with exam findings and care plan as documented. History of Present Illness *Admission Date: 01/22/24 *Reason for visit:: TIA *History of present illness: This is a 63-year-old male with no significant past medical history except for tobacco abuse who presents emergency department today with complaints of di fficulty speaking and difficulty moving his arms and legs. He reports going to bed around 10 PM in his normal state of health. is at the bedside and provides collateral and states that he was wrestling with a dog doing his normal routine this evening when all of a sudden he developed difficulty speaking and moving. She states that he made some gurgling noises and then felt her hair pull and he was trying to reach for her to get her attention. He denied any unilateral mess of his symptoms and states that he just felt globally weak. He did develop a headache after the episode. He also endorses difficulty with word finding over the course of this last week. States that he felt like he could not get his words out correctly. Of note, it was noted that his blood pressure en route to the hospital with EMS was systolic of 200. Emergency department workup notable for left proximal M1 segment of the left MCA with high-grade stenosis and near occlusion with vessel distally patent. CTA head and neck otherwise unremarkable. Laboratory evaluation mostly unremarkable except for triglycerides at 183. Further workup negative. On arrival to emergency department NIH of 0. [facility] was consulted for neurology services and states patient is in no need of intervention at this time. Patient can be managed medically with routine testing. Will arrange for follow-up with neurology outpatient. Recommends aspirin, Plavix, statin, echocardiogram and MRI. [facility] Disclaimer: The information contained in this section may have been updated after the patient was seen, as this information can be updated by other users. Medical History (Updated 01/22/24 @ 13:58 by Emile Marcano MD) Rupture, spleen Surgical History History of prostate surgery H/O hernia repair Social History Smoking Status: Current every day smoker tobacco type: cigarettes alcohol intake: former current occupational status: employed Travel in the last 8 weeks: None Review of Systems Review of Systems Review of systems:: other Review of systems (narrative): Negative except for HPI Meds Home Medications and Allergies Home Medications ?Medication ?Instructions ?Recorded ?Confirmed ?Type aspirin 81 mg tablet,delayed 81 mg PO DAILY 90 days #90 tabs 01/22/24 Rx release atorvastatin 40 mg tablet 80 mg (2 x 40 mg) PO HS 30 days 01/22/24 Rx #60 tabs clopidogrel 75 mg tablet 75 mg PO DAILY 90 days #90 tabs 01/22/24 Rx nicotine 21 mg/24 hr daily 21 mg transdermal DAILY 30 days 01/22/24 Rx transdermal patch #28 ea New Prescriptions to Start Prescriptions: aspirin Jeet,Emile atorvastatin [place],Emile clopidogrel [place],Emile nicotine Jeet,Emile Allergies Allergy/AdvReac Type Severity Reaction Status Date / Time No Known Allergies Allergy Verified 05/24/17 10:58 Exam Data for Last 24 hours Vital signs and Labs for Last 24 Hours: Temp Pulse Resp BP Pulse Ox O2 Del Method 97.9 F 61 18 172/114 H 98 Room Air 01/22/24 02:38 01/22/24 02:38 01/22/24 02:38 01/22/24 02:38 01/22/24 02:31 01/22/24 02:38 Laboratory Results - last 24 hr 01/21/24 23:34: WBC 9.1, RBC 5.95, Hgb 17.3, Hct 51.1, MCV 85.9, MCH 29.1, MCHC 33.9, RDW 14.0, Plt Count 254, MPV 7.1 L, Neut % (Auto) 42.0, Lymph % (Auto) 44.0, [place] % (Auto) 7.8, Eos % (Auto) 4.7, Baso % (Auto) 1.5, Neut # (Auto) 3.8, Lymph # (Auto) 4.0, [place] # (Auto) 0.7, Eos # (Auto) 0.4, Baso # (Auto) 0.1, PT 11.2, INR 1.00, APTT 27.6, Sodium 138, Potassium 3.6, Chloride 101, Carbon Dioxide 28, Anion Gap 12.6, BUN 17, Creatinine 1.00, Estimated Creat Clear 84, Estimated GFR 76, Est GFR ( Amer) 92, Glucose 116 H, Calcium 8.7, Total Bilirubin 0.7, AST 26, ALT 21, Alkaline Phosphatase 60, Troponin I < 0.01, Total Protein 6.9, Albumin 4.0, Globulin 2.9, Albumin/Globulin Ratio 1.4, Triglycerides 183 H, Cholesterol 167, LDL Cholesterol Direct 111.40, VLDL Cholesterol 37, HDL Cholesterol 39 L, Cholesterol/HDL Ratio 4.3 H, HIV 1&2 Antibody Rapid Nonreactive 01/22/24 00:46: Urine Color Yellow, Urine Appearance Clear, Urine pH 6.0, Ur Specific [place] 1.010, Urine Protein Negative, Urine Glucose (UA) Negative, Urine Ketones Negative, Urine Blood Negative, Urine Nitrate Negative, Urine Bilirubin Negative, Urine Urobilinogen 0.2, Ur Leukocyte Esterase Negative, Urine WBC Occasional, Ur Squamous Epith Cells Occasional, Urine Bacteria Trace, Urine Opiates Screen Negative, Urine Methadone Screen Negative, Ur Barbituates Screen Negative, Ur Phencyclidine Scrn Negative, Ur Amphetamines Screen Negative, U Benzodiazepines Scrn Negative, Urine Cocaine Screen Negative, U Marijuana (THC) Screen Negative I & O for Last 24 hours: Intake & Output 01/19/24 01/20/24 01/21/24 01/22/24 23:59 23:59 23:59 23:59 Weight 77.111 kg Constitutional Constitutional: no acute distress *Routine HEENT Exam Head: Present normocephalic Eye: Present EOMI and PERRL ENT: Present mucous membranes moist *Routine Neck Exam Neck: Present supple; Absent lymphadenopathy *Routine Respiratory Exam Respiratory: Present CTA bilaterally *Routine Cardiovascular Exam Cardiovascular: Present RRR *Routine Abdominal Exam Abdominal: Present soft and normoactive bowel sounds; Absent tenderness *Routine Rectal Exam Rectal:: deferred *Routine Genitalia Exam Genitalia:: deferred *Routine Extremities Exam Extremities: Absent cyanosis, clubbing or edema *Routine Skin Exam Skin: Present warm; Absent rash *Routine Neurological Exam Neurological: Present alert and oriented X3 Assessment and Plan *Assessment and plan (1) Middle cerebral artery stenosis: Status: Acute Qualifiers: Laterality: left Qualified Code(s): I66.02 - Occlusion and stenosis of left middle cerebral artery Category: Medical Code(s): I66.09 - Occlusion and stenosis of unspecified middle cerebral artery (2) Brain TIA: Status: Acute Category: Medical Code(s): G45.9 - Transient cerebral ischemic attack, unspecified (3) Tobacco abuse: Status: Acute Category: Medical Code(s): Z72.0 - Tobacco use Plan #MCA stenosis #TIA No TPA/TNK or thrombectomy needed at this time. NIH of 0 Allow blood pressure to autoregulate up to 220 systolic for the next 24 hours and then gradually return to normotension Every 2 hours neurochecks Aspirin 325mg now and then 81 mg daily in perpetuity Initiate high-dose atorvastatin 80 mg nightly Plavix 75 mg for 90 days per [facility] A1c and lipid panel pending Echocardiogram with bubble study in a.m. MRI of brain in a.m. 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 for stroke protocol Diet if bedside swallow passed #Tobacco abuse Tobacco cessation education. Spoke at length with patient about significance of smoking with strokes
[2024-01-22 03:39] LABS: Troponin I < 0.01 ng/ml (0.00-0.034)
--- NOTE | 2024-01-22 06:14 | PC.NURSE ---
Alert and oriented since arriving to floor. Q2 neuro checks= 0. Room air. Independent. Pt has had no complaints and has been resting well. Patient states he felt funny during admission questions, patient could not explain to me the feeling, notified Kt Muro APRN. Call light in reach.
[2024-01-22 06:51] LABS: Basophils # 0.1 K/mm3 (0-0.2); Basophils % 1.2 % (0.1-2.0); Eosinophils # 0.3 K/mm3 (0.0-0.4); Eosinophils % 3.2 % (0.1-12.0); Hematocrit 51.2 % (42.0-52.0); Hemoglobin 17.1 g/dL (14.1-18.0); Lymphocytes # 2.8 K/mm3 (0.7-4.5); Mean Corpuscular HGB Conc 33.5 g/dL (31.8-35.4); Mean Corpuscular Hemoglobin 28.8 pg (27.0-31.2); Mean Corpuscular Volume 86.1 fl (80-94); Mean Platelet Volume 7.4 fl (7.4-10.4); Monocytes # 0.6 K/mm3 (0.1-1.0); Monocytes % 7.2 % (1.7-9.3); Neutrophils # 4.7 K/mm3 (1.8-7.8); Neutrophils % 55.3 % (37.0-80.0); Platelet Count 251 K/mm3 (142-424); Red Blood Count 5.95 M/mm3 (4.60-6.20); Red Cell Distribution Width 13.9 % (11.5-17.5); White Blood Count 8.6 K/mm3 (4.8-10.8)
[2024-01-22 06:57] LABS: Troponin I < 0.01 ng/ml (0.00-0.034)
--- NOTE | 2024-01-22 07:00 | MR_ITS ---
PROCEDURE INFORMATION: Exam: MR Head Without Contrast Exam date and time: 01/22/2024 11:39 AM Age: 63 years old Clinical indication: Stroke-like symptoms; Speech disturbance; Right upper extremity and left upper extremity numbness/paresthesia; Additional info: Stroke work up TECHNIQUE: Imaging protocol: Magnetic resonance imaging of the head without contrast. COMPARISON: CT ANGIO HEAD 01/21/2024 11:58 PM FINDINGS: Brain: Subtle areas of increased FLAIR signal noted bilaterally possibly small-vessel ischemic but nonspecific. There is no intracranial hemorrhage. There is no midline shift. Punctate acute ischemic events are seen involving left occipital lobe. Two are seen on image 3/40 and what is seen on image 3/41. Multiple punctate ischemic events as seen within the left parietal. There is no intracranial hemorrhage. There is no midline shift. Cerebral ventricles: Normal. No ventriculomegaly. Bones: Unremarkable. Paranasal sinuses: Normal as visualized. No acute sinusitis. Mastoid air cells: Normal as visualized. No mastoid effusion. Orbital cavities: Unremarkable. Soft tissues: Unremarkable. IMPRESSION: Left-sided infarcts in both the middle cerebral artery distribution (parietal lobe) as well as the posterior cerebral artery distribution (occipital lobe).
[2024-01-22 07:12] LABS: Chloride 108 mmol/L (98-107); Potassium 4.4 mmoL/L (3.5-5.1); Sodium 137 mmol/L (136-145)
[2024-01-22 07:13] LABS: Hemoglobin A1C 5.8 % (4.0-6.0)
[2024-01-22 07:15] LABS: Anion Gap 12.4 mEq/L (5-15); Blood Urea Nitrogen 15 mg/dl (9-20); Calcium 8.9 mg/dl (8.4-10.2); Carbon Dioxide 21 mmol/L (22.0-30.0); Creatinine Clearance Estimated 86 mL/min (50-200); Estimated Glomerular Filt Rate 98 ml/min (>60); GFR (African American) 119 ML/MIN (>60); Glucose 114 mg/dl (74-100)
[2024-01-22] MEDS: CLOPIDOGREL 75MG TAB 75 MG PO (08:17)
[2024-01-22] MEDS: ASPIRIN EC 81MG TABLET 81 MG PO (08:17)
[2024-01-22 08:34] LABS: Free T4 (Free Thyroxine) 1.15 ng/dl (0.78-2.19)
[2024-01-22 08:48] LABS: Thyroid Stimulating Hormone 1.62 uIU/mL (0.465-4.68)
[2024-01-22 08:50] LABS: Hemoglobin A1C 5.7 % (4.0-6.0)
[2024-01-22 09:44] LABS: Vitamin B12 248 pg/mL (239-931)
[2024-01-22 09:57] LABS: Folate 8.11 ng/mL
--- NOTE | 2024-01-22 10:07 | HMH.OTEV ---
OT Inpatient Evaluation Rehab OT IP Evaluation Start: 01/22/24 07:13 Freq: ONCE Status: Active Protocol: [facility]/22/24 09[facility] (Rec: 01/22/24 10:07 [facility] [id number]) Rehab OT IP Assessment Subjective History Pt oriented x 3 on arrival. Pt agreeable to engage in therapy evaluation. Pt admitted on 01/22/24 due to TIA. This is a 63-year-old male with no significant past medical history except for tobacco abuse who presents emergency department today with complaints of difficulty speaking and difficulty moving his arms and legs. He reports going to bed around 10 PM in his normal state of health. is at the bedside and provides collateral and states that he was wrestling with a dog doing his normal routine this evening when all of a sudden he developed difficulty speaking and moving. She states that he made some gurgling noises and then felt her hair pull and he was trying to reach for her to get her attention. He denied any unilateral mess of his symptoms and states that he just felt globally weak. He did develop a headache after the episode. He also endorses difficulty with word finding over the course of this last week. States that he felt like he could not get his words out correctly. Of note, it was noted that his blood pressure en route to the hospital with EMS was systolic of 200. Subjective I have never had this issue before. Pt reports prior to being in the hospital, pt lived at home with his . Pt claims normally he is independently with ADLs and IADLs. He does not require any type of AE during functional transfers. 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 Objective Patient Orientation Person,Place,Birthday Right Upper Extremity Gross ROM WFL Left Upper Extremity Gross ROM WFL Bed Mobility bed mobility-scooting,bed mobility - supine/sit Assist Level Supervision/Stand by Transfer Training Sit/Stand Transfer Assist Level Supervision/Stand by Lower Body Dressing Ability Standby Assistance Overall Commode/Toilet Transfer Ability Standby Assistance Commode/Toilet Transfer Technique Sit to/from Ambulatory Rehab OT IP prob,goals,plan Problems Date of Evaluation: 01/22/24 Rehab Potential Rehab Potential Innapropriate for Skilled Therapy Discharge Plan OT Discharge Plan Pt appears to be at his baseline with functional transfers and ADL independence . Pt can return home with his once he is medically stable per physician. Eval Complexity Eval Charge Codes 87512 - Low Complexity PHYSICIAN CERTIFICATION: I certify the specified therapy services for Riley Green are required, authorized, and reviewed every 30 days.
--- NOTE | 2024-01-22 10:09 | HMH.PTEV ---
Physical Therapy Evaluation Rehab PT IP Evaluation Start: 01/22/24 07:13 Freq: ONCE Status: Active Protocol: Document 01/22/24 09:16 BARTOLOME (Rec: 01/22/24 10:09 BARTOLOME [id number]) Subjective/History History History 63-year-old male with no significant past medical history except for tobacco abuse. Pt reports he had difficulty w/ his speech and global weakness while playing w/ his dog yesterday evening. Pt lives at home w/ his in a single story home. Pt denies any stairs or using an assistive device. He was independent in all ADLs before admission and is currently working for [employer]. Subjective Subjective Pt presents supine and awake in bed. He is alert and oriented x3 (person, place, and birthday) this morning. Pt denies any pain and weakness this morning. Pt consents to therapy services this morning. Rehab PT IP Eval Objective Appearance Patient Behavior Appropriate,Cooperative Patient Orientation Person,Place,Birthday Speech Pattern Clear,Appropriate,Coherent Ambulation Patient Able to Ambulate Yes Ambulation Observation IP General Gait Pattern Observation No Deviations/Normal Ambulation Distance (feet) 20 Ambulation Assistive Device None Ambulation Ability Supervision/Stand by Balance Ability to Arise Able, w/o using arms Sitting Balance Steady, safe Standing Balance Narrow stance w/o support Dynamic Sitting Balance Ability Normal Dynamic Standing Balance Ability Good Transfers Bed Transfer Ability Independent Sit to Stand Bed Transfer Ability Supervision/Stand by Rehab PT IP prob,goals,plan Problems Date of Evaluation: 01/22/24 Discharge Plan PT Discharge Plan Pt was independent w/ all transfers and w/ ambulation, supervision was provided during ambulation for precaution. Pt has good activity tolerance and no deviations from baseline performance. Currently, Pt is appropriate for d/c to home. Eval Complexity Eval Charge Codes 61342 - High Complexity PHYSICIAN CERTIFICATION: I certify the specified therapy services for Riley Blankenship are required, authorized, and reviewed every 30 days.
--- NOTE | 2024-01-22 13:49 | HMH.SLDYSPHA ---
Speech & Language Evaluation Speech/Language Dysphagia Evaluation Start: 01/22/24 13:43 Freq: ONCE Status: Active Protocol: Document 01/22/24 13:43 MSTSHAY (Rec: 01/22/24 13:49 [facility]STMONIKAART Laptop) Dysphagia Assess/Goals/Plan Assessment Date of Evaluation: 01/22/24 Evaluation Type Initial Certification Assessment/Problems stroke protocol per MD order Does Patient Qualify for Service No Qualify/Failure Comment Based on clinical observations made during CSE and informal cog-lx assessment, manipulation and mastication of bolus and swallow appear to be WFL as well as motor speech and cog-lx skills WFL. No further skilled speech therapy services are warranted at this time. Recommendations PHYSICIAN CERTIFICATION: The specified therapy services are required, authorized, and reviewed every 30 days. Diet Recommendations Normal Liquid Type Recommendations Normal/Thin SL Swallow Guidelines Alt bite w/sip thru meal, Standard Aspiration Prec. Dysphagia Swallow Precautions/Strategies Sitting Upright (90 deg) Plan Pt/Guardian verbally ack understanding Yes of dx/prognosis/goals G -code Required No Education Instructions provided RESOLUTION AGENT discussed CSE and cog-lx assessment results, diet recommendations, and standard aspiration precautions to pt, nursing, and care management all of which expressed understanding. Pt/Caregiver able to recall information Able to recall/restate Reinforcement needed No Speech & Language HPI History Present Illness Description of Patient Problem RESOLUTION AGENT pulled following information from chart review and H&P, MRI had not been completed at time of evaluation this AM, 63-year- old male with no significant past medical history except for tobacco abuse who presents emergency department today with complaints of difficulty speaking and difficulty moving his arms and legs. He reports going to bed around 10 PM in his normal state of health. is at the bedside and provides collateral and states that he was wrestling with a dog doing his normal routine this evening when all of a sudden he developed difficulty speaking and moving. She states that he made some gurgling noises and then felt her hair pull and he was trying to reach for her to get her attention. He denied any unilateral mess of his symptoms and states that he just felt globally weak. He did develop a headache after the episode. He also endorses difficulty with word finding over the course of this last week. States that he felt like he could not get his words out correctly. Of note, it was noted that his blood pressure en route to the hospital with EMS was systolic of 200. Emergency department workup notable for left proximal M1 segment of the left MCA with high-grade stenosis and near occlusion with vessel distally patent. CTA head and neck otherwise unremarkable. Laboratory evaluation mostly unremarkable except for triglycerides at 183. Further workup negative. On arrival to emergency department [facility] was consulted for neurology services and states patient is in no need of intervention at this time. Patient can be managed medically with routine testing . Will arrange for follow-up with neurology outpatient. Recommends aspirin, Plavix, statin, echocardiogram and MRI . General Information General Current Food Consistancy Regular,Thin Liquids Dentition Good Dentition Patient Orientation Person,Place,Time,Situation Ability to Follow Directions Excellent Communication Ability No Impairment Dysphagia:Food Presentation Evaluation Food Type Pureed,Mechanical Soft,Regular ,Liquid,Pudding,Other Dysphagia Evaluation Summary Pt was seen sitting upright this morning for assessment, he was A&Ox4 and eating breakfast. RESOLUTION AGENT observed pt eating meal as he ate the following items: zhang, scrambled eggs, toast with butter, applesauce, oatmeal, orange juice, and pepsi. Pt was observed to take multiple bites and sips with no overt s /sxs of aspiration exhibited. It is recommended he continue this diet due to tolerance demonstration. RESOLUTION AGENT assessed immediate and delayed memory, convergent/divergent naming, confrontational naming, deductive reasoning, and problem solving skills at the bedside. Pt exhibited no difficulty. Oral motor WFL. Skilled speech therapy services are not warranted at this time. RESOLUTION AGENT will f/u as needed. Stroke Dysphagia Assessment PHYSICIAN CERTIFICATION: I certify the specified therapy services for Riley Blankenship are required, authorized, and reviewed every 30 days.
--- NOTE | 2024-01-22 13:56 | P.DS_ITS ---
General Admission date:: 01/22/24 HPI HPI HPI: This is a 63-year-old male with no significant past medical history except for tobacco abuse who presents emergency department today with complaints of difficulty speaking and difficulty moving his arms and legs. He reports going to bed around 10 PM in his normal state of health. is at the bedside and provides collateral and states that he was wrestling with a dog doing his normal routine this evening when all of a sudden he developed difficulty speaking and moving. She states that he made some gurgling noises and then felt her hair pull and he was trying to reach for her to get her attention. He denied any unilateral mess of his symptoms and states that he just felt globally weak. He did develop a headache after the episode. He also endorses difficulty with word finding over the course of this last week. States that he felt like he could not get his words out correctly. Of note, it was noted that his blood pressure en route to the hospital with EMS was systolic of 200. Emergency department workup notable for left proximal M1 segment of the left MCA with high-grade stenosis and near occlusion with vessel distally patent. CTA head and neck otherwise unremarkable. Laboratory evaluation mostly unremarkable except for triglycerides at 183. Further workup negative. On arrival to emergency department [facility] was consulted for neurology services and states patient is in no need of intervention at this time. Patient can be managed medically with routine testing. Will arrange for follow-up with neurology outpatient. Recommends aspirin, Plavix, statin, echocardiogram and MRI. Hospital Course Hospital Course Hospital Course: #Left-sided parietal, occipital lobe punctate infarcts # High-grade MCA stenosis MRI revealed left-sided parietal, occipital lobe punctate infarcts likely embolic in the setting of high-grade MCA stenosis revealed on head CTA. Spoke to neurology extensively regarding these findings, they stated there are more risks than benefits from stenting MCA including further embolic events from stenting itself. Advised continuing medical management with aspirin 81 mg, Plavix 75 mg for at least 90 days. Started atorvastatin 40 mg. He needs to maintain a blood pressure of at least 120 systolic to ensure appropriate perfusion through the MCA. Counseled smoking cessation which patient is agreeable. Will follow-up with PCP and neurologist within 1 week to which patient was referred. ? Patient continues to have no focal neurological deficits. ? ECHO did not reveal clot burden, PFO. ? PT/OT/ST did not make further recommendations. At baseline. ? Discharged with aspirin 81 mg, Plavix 75 mg, atorvastatin 40 mg. ? Will follow-up with PCP, neurology within 1 week of discharge. Patient was referred to neurologist. # Tobacco use disorder Extensively counseled on smoking cessation in the setting of new CVA. Patient was amenable to cessation, prescribed nicotine patches. Will follow-up with PCP for further management. Exam Data for Last 24 hours Vital signs and Labs for Last 24 Hours: Temp Pulse Resp BP Pulse Ox O2 Del Method 98 F 56 L 21 130/48 L 95 Room Air 01/22/24 07:44 01/22/24 07:44 01/22/24 07:44 01/22/24 07:44 01/22/24 07:44 01/22/24 11:00 Laboratory Results - last 24 hr 01/21/24 23:34: WBC 9.1, RBC 5.95, Hgb 17.3, Hct 51.1, MCV 85.9, MCH 29.1, MCHC 33.9, RDW 14.0, Plt Count 254, MPV 7.1 L, Neut % (Auto) 42.0, Lymph % (Auto) 44.0, [place] % (Auto) 7.8, Eos % (Auto) 4.7, Baso % (Auto) 1.5, Neut # (Auto) 3.8, Lymph # (Auto) 4.0, [place] # (Auto) 0.7, Eos # (Auto) 0.4, Baso # (Auto) 0.1, PT 11.2, INR 1.00, APTT 27.6, Sodium 138, Potassium 3.6, Chloride 101, Carbon Dioxide 28, Anion Gap 12.6, BUN 17, Creatinine 1.00, Estimated Creat Clear 84, Estimated GFR 76, Est GFR ( Amer) 92, Glucose 116 H, Calcium 8.7, Total Bilirubin 0.7, AST 26, ALT 21, Alkaline Phosphatase 60, Troponin I < 0.01, Total Protein 6.9, Albumin 4.0, Globulin 2.9, Albumin/Globulin Ratio 1.4, Triglycerides 183 H, Cholesterol 167, LDL Cholesterol Direct 111.40, VLDL Cholesterol 37, HDL Cholesterol 39 L, Cholesterol/HDL Ratio 4.3 H, HIV 1&2 Antibody Rapid Nonreactive 01/22/24 00:46: Urine Color Yellow, Urine Appearance Clear, Urine pH 6.0, Ur Specific [place] 1.010, Urine Protein Negative, Urine Glucose (UA) Negative, Urine Ketones Negative, Urine Blood Negative, Urine Nitrate Negative, Urine Bilirubin Negative, Urine Urobilinogen 0.2, Ur Leukocyte Esterase Negative, Urine WBC Occasional, Ur Squamous Epith Cells Occasional, Urine Bacteria Trace, Urine Opiates Screen Negative, Urine Methadone Screen Negative, Ur Barbituates Screen Negative, Ur Phencyclidine Scrn Negative, Ur Amphetamines Screen Negati ve, U Benzodiazepines Scrn Negative, Urine Cocaine Screen Negative, U Marijuana (THC) Screen Negative 01/22/24 03:05: Troponin I < 0.01 01/22/24 05:48: WBC 8.6, RBC 5.95, Hgb 17.1, Hct 51.2, MCV 86.1, MCH 28.8, MCHC 33.5, RDW 13.9, Plt Count 251, MPV 7.4, Neut % (Auto) 55.3, Lymph % (Auto) 33.0, [place] % (Auto) 7.2, Eos % (Auto) 3.2, Baso % (Auto) 1.2, Neut # (Auto) 4.7, Lymph # (Auto) 2.8, [place] # (Auto) 0.6, Eos # (Auto) 0.3, Baso # (Auto) 0.1, Sodium 137, Potassium 4.4 D, Chloride 108 H, Carbon Dioxide 21 L, Anion Gap 12.4, BUN 15, Creatinine 0.80, Estimated Creat Clear 86, Estimated GFR 98, Est GFR ( Amer) 119 D, Glucose 114 H, Hemoglobin A1c 5.8 01/22/24 05:48: Hemoglobin A1c 5.7, Calcium 8.9, Troponin I < 0.01, Vitamin B12 248, Folate 8.11, TSH 1.62, Free T4 1.15 I & O for Last 24 hours: Intake & Output 01/19/24 01/20/24 01/21/24 01/22/24 23:59 23:59 23:59 23:59 Intake Total 480 / 480 Balance 480 / 480 Weight 77.111 kg 79.06 kg Constitutional Constitutional: no acute distress *Routine HEENT Exam Head: Present normocephalic Eye: Present EOMI and PERRL ENT: Present mucous membranes moist *Routine Neck Exam Neck: Present supple; Absent lymphadenopathy *Routine Respiratory Exam Respiratory: Present CTA bilaterally *Routine Cardiovascular Exam Cardiovascular: Present RRR *Routine Abdominal Exam Abdominal: Present soft and normoactive bowel sounds; Absent tenderness *Routine Extremities Exam Extremities: Absent cyanosis, clubbing or edema *Routine Skin Exam Skin: Present warm; Absent rash *Routine Neurological Exam Neurological: Present alert and oriented X3 Results Data Completed and Pending Labs on day of discharge: Labs from last 24 hours 01/22/24 01/22/24 01/22/24 05:48 05:48 03:05 WBC 8.6 RBC 5.95 Hgb 17.1 Hct 51.2 MCV 86.1 MCH 28.8 MCHC 33.5 RDW 13.9 Plt Count 251 MPV 7.4 Neut % (Auto) 55.3 Lymph % (Auto) 33.0 [place] % (Auto) 7.2 Eos % (Auto) 3.2 Baso % (Auto) 1.2 Neut # (Auto) 4.7 Lymph # (Auto) 2.8 [place] # (Auto) 0.6 Eos # (Auto) 0.3 Baso # (Auto) 0.1 PT INR APTT Sodium 137 Potassium 4.4 D Chloride 108 H Carbon Dioxide 21 L Anion Gap 12.4 BUN 15 Creatinine 0.80 Estimated Creat Clear 86 Estimated GFR 98 Est GFR ( Amer) 119 D Glucose 114 H Hemoglobin A1c 5.7 5.8 Calcium 8.9 Total Bilirubin AST ALT Alkaline Phosphatase Troponin I < 0.01 < 0.01 Total Protein Albumin Globulin Albumin/Globulin Ratio Triglycerides Cholesterol LDL Cholesterol Direct VLDL Cholesterol HDL Cholesterol Cholesterol/HDL Ratio Vitamin B12 248 Folate 8.11 TSH 1.62 Free T4 1.15 Urine Color Urine Appearance Urine pH Ur Specific [place] Urine Protein Urine Glucose (UA) Urine Ketones Urine Blood Urine Nitrate Urine Bilirubin Urine Urobilinogen Ur Leukocyte Esterase Urine WBC Ur Squamous Epith Cells Urine Bacteria Urine Opiates Screen Urine Methadone Screen Ur Barbituates Screen Ur Phencyclidine Scrn Ur Amphetamines Screen U Benzodiazepines Scrn Urine Cocaine Screen U Marijuana (THC) Screen HIV 1&2 Antibody Rapid 01/22/24 01/21/24 00:46 23:34 WBC 9.1 RBC 5.95 Hgb 17.3 Hct 51.1 MCV 85.9 MCH 29.1 MCHC 33.9 RDW 14.0 Plt Count 254 MPV 7.1 L Neut % (Auto) 42.0 Lymph % (Auto) 44.0 [place] % (Auto) 7.8 Eos % (Auto) 4.7 Baso % (Auto) 1.5 Neut # (Auto) 3.8 Lymph # (Auto) 4.0 [place] # (Auto) 0.7 Eos # (Auto) 0.4 Baso # (Auto) 0.1 PT 11.2 INR 1.00 APTT 27.6 Sodium 138 Potassium 3.6 Chloride 101 Carbon Dioxide 28 Anion Gap 12.6 BUN 17 Creatinine 1.00 Estimated Creat Clear 84 Estimated GFR 76 Est GFR ( Amer) 92 Glucose 116 H Hemoglobin A1c Calcium 8.7 Total Bilirubin 0.7 AST 26 ALT 21 Alkaline Phosphatase 60 Troponin I < 0.01 Total Protein 6.9 Albumin 4.0 Globulin 2.9 Albumin/Globulin Ratio 1.4 Triglycerides 183 H Cholesterol 167 LDL Cholesterol Direct 111.40 VLDL Cholesterol 37 HDL Cholesterol 39 L Cholesterol/HDL Ratio 4.3 H Vitamin B12 Folate TSH Free T4 Urine Color Yellow Urine Appearance Clear Urine pH 6.0 Ur Specific [place] 1.010 Urine Protein Negative Urine Glucose (UA) Negative Urine Ketones Negative Urine Blood Negative Urine Nitrate Negative Urine Bilirubin Negative Urine Urobilinogen 0.2 Ur Leukocyte Esterase Negative Urine WBC Occasional Ur Squamous Epith Cells Occasional Urine Bacteria Trace Urine Opiates Screen Negative Urine Methadone Screen Negative Ur Barbituates Screen Negative Ur Phencyclidine Scrn Negative Ur Amphetamines Screen Negative U Benzodiazepines Scrn Negative Urine Cocaine Screen Negative U Marijuana (THC) Screen Negative HIV 1&2 Antibody Rapid Nonreactive DS: Diagnosis Discharge Diagnosis (1) Middle cerebral artery stenosis: Status: Acute Code(s): I66.09 - Occlusion and stenosis of unspecified middle cerebral artery Qualifiers: Laterality: left Qualified Code(s): I66.02 - Occlusion and stenosis of left middle cerebral artery (2) Tobacco abuse: Status: Acute Code(s): Z72.0 - Tobacco use (3) CVA (cerebral vascular accident): Status: Acute Code(s): I63.9 - Cerebral infarction, unspecified Meds Home Medications and Allergies Home Medications ?Medication ?Instructions ?Recorded ?Confirmed ?Type aspirin 81 mg tablet,delayed 81 mg PO DAILY 90 days #90 tabs 01/22/24 Rx release atorvastatin 40 mg tablet 80 mg (2 x 40 mg) PO HS 30 days 01/22/24 Rx #60 tabs clopidogrel 75 mg tablet 75 mg PO DAILY 90 days #90 tabs 01/22/24 Rx nicotine 21 mg/24 hr daily 21 mg transdermal DAILY 30 days 01/22/24 Rx transdermal patch #28 ea New Prescriptions to Start Prescriptions: aspirin [place],Emile atorvastatin [place],Emile clopidogrel [place],Emile nicotine [place],Emile Allergies Allergy/AdvReac Type Severity Reaction Status Date / Time No Known Allergies Allergy Verified 05/24/17 10:58 Discharge Plan Disposition Patient Disposition: Home, Self-Care Condition: Good Follow up Plan Follow up with: Trey Eaton [Referring] - 02/04/24 9:45 am Shakira (ED)Deysi APRN [Nurse Practitioner] - 01/29/24 9:45 am Prescriptions/Medication Reconciliation: New aspirin 81 mg Tablet,Delayed Release (Dr/Ec) 81 mg PO DAILY 90 Days Qty: 90 0RF atorvastatin 40 mg Tablet 80 mg PO HS 30 Days Qty: 60 0RF clopidogrel 75 mg Tablet 75 mg PO DAILY 90 Days Qty: 90 0RF nicotine 21 mg/24 hr Patch 24 Hour 21 mg transdermal DAILY 30 Days Qty: 28 0RF Problem Reconciliation Problems Reviewed?: Yes Patient Discharge Instructions ACTIVITY: Continue current activity DIET: continue same diet Additional Instructions: Please consider smoking cessation as this is related to your stroke. Stay hydrated to maintain your blood pressures of at least systolic 120 at home. Check your blood pressure daily, talk to your PCP if your systolic blood pressure is less than 100 at home. Return to hospital if you begin to have consistent strokelike symptoms, including word finding difficulties and slurred speech. Please follow-up with your PCP and neurologist within 1 week. We will make those appointments for you. Stand Alone Forms: [facility] Work Release Patient Instructions: Transient Ischemic Attack, DI for Transient Ischemic Attack Print Language: Malay Providers Primary Care Provider: Provider,Referral Admit Provider: Chester Castro Attending Provider: Chester Castro
[2024-01-23 08:25] LABS: HCV Ab Non Reactive (Non Reactive)
--- NOTE | 2024-01-24 12:59 | CARE MANAGER ---
Attempted to contact patient x2 related to hospital discharge. Left voicemail message. ANDRE Salgado
== END 2024-01-22 15:36 | disposition home or self-care (01) ==
LOC: ER 23:43 → 2ND 01-22 02:25
PROVIDERS: Nurse Practitioner Acute Care; Student in an Organized Health Care Education/Training Program; Admitting Provider Internal Medicine Adolescent Medicine; Emergency Provider Emergency Medicine; Visit Provider Internal Medicine Adolescent Medicine
DX: I63.9 Cerebral infarction, unspecified (principal); I66.02 Occlusion and stenosis of left middle cerebral artery; Z71.6 Tobacco abuse counseling; F17.210 Nicotine dependence, cigarettes, uncomplicated
CPT/HCPCS: 36415; 70450; 70496; 70498; 70551; 80048; 80053; 80061; 80307; 81001; 82607; 82746; 83036; 84439; 84443; 84484; 85025; 85610; 85730; 86803; 87389; 92610; 93005; 93306; 97163; 97165; 99291; G0378; Q9967

== ENCOUNTER 2024-08-30 10:30 | Emergency (ER) | payer SELFPAY ==
[2024-08-30] VITALS (9 sets, daily range): BP systolic 131–165; BP diastolic 82–102; PULSE 48–65; RESP 14–20; TEMP 36.6; O2SAT 96–99; BMI 24.3
--- NOTE | 2024-08-30 10:46 | CT_ITS ---
PROCEDURE INFORMATION: Exam: CTA Head With Contrast, Arteriography Exam date and time: 08/30/2024 11:32 AM Age: 64 years old Clinical indication: Numbness; Additional info: Possible stroke TECHNIQUE: Imaging protocol: Computed tomographic angiography of the head with contrast. Exam focused on the arteries. 3D rendering (Not supervised by radiologist): MIP and/or 3D reconstructed images were created by the technologist. Radiation optimization: All CT scans at this facility use at least one of these dose optimization techniques: automated exposure control; mA and/or kV adjustment per patient size (includes targeted exams where dose is matched to clinical indication); or iterative reconstruction. Contrast material: ISOVUE 370; Contrast volume: 80 ml; Contrast route: INTRAVENOUS (IV); COMPARISON: CT ANGIO HEAD 01/21/2024 11:58 PM FINDINGS: ANTERIOR CIRCULATION: Right internal carotid artery: Intracranial segment is patent with no significant stenosis. No aneurysm. Right middle cerebral artery: No occlusion or significant stenosis. No aneurysm. Right anterior cerebral artery: No occlusion or significant stenosis. No aneurysm. Left internal carotid artery: Intracranial segment is patent with no significant stenosis. No aneurysm. Left middle cerebral artery: No occlusion or significant stenosis. No aneurysm. Left anterior cerebral artery: No occlusion or significant stenosis. No aneurysm. POSTERIOR CIRCULATION: Right vertebral artery: No occlusion or significant stenosis. No aneurysm. Left vertebral artery: No occlusion or significant stenosis. No aneurysm. Basilar artery: No occlusion or significant stenosis. No aneurysm. Right posterior cerebral artery: No occlusion or significant stenosis. No aneurysm. Left posterior cerebral artery: No occlusion or significant stenosis. No aneurysm. Brain: No definite mass, mass effect, or midline shift. Cerebral ventricles: No ventriculomegaly. Bones/joints: Unremarkable. No acute fracture. Soft tissues: Unremarkable. IMPRESSION: No large vessel stenosis or occlusion.
--- NOTE | 2024-08-30 10:46 | ECG_ITS ---
APPROVED REPORT Exam: Resting ECG HR:64 bpm ECG Measurements Heart Rate 64 AXES MI 148 P 63 QRSd 111 QRS 72 QT 411 T 52 QTc 421 Conclusion SINUS RHYTHM MODERATE INTRAVENTRICULAR CONDUCTION DELAY [110+ ms QRS DURATION] No STEMI Electronically signed by : SARAH WILSON, 08/30/2024 14:52:40
--- NOTE | 2024-08-30 10:46 | CT_ITS ---
PROCEDURE INFORMATION: Exam: CTA Neck With Contrast Exam date and time: 08/30/2024 11:32 AM Age: 64 years old Clinical indication: Other: Possible stroke TECHNIQUE: Imaging protocol: Computed tomographic angiography of the neck with contrast. Exam focused on the cervical segments of the vasculature. 3D rendering (Not supervised by radiologist): MIP and/or 3D reconstructed images were created by the technologist. Radiation optimization: All CT scans at this facility use at least one of these dose optimization techniques: automated exposure control; mA and/or kV adjustment per patient size (includes targeted exams where dose is matched to clinical indication); or iterative reconstruction. Contrast material: ISO 370; Contrast volume: 80 ml; Contrast route: INTRAVENOUS (IV); COMPARISON: CT ANGIO NECK 01/21/2024 11:58 PM FINDINGS: Right common carotid artery: No stenosis. No dissection or occlusion. Right internal carotid artery: No stenosis of the extracranial segment. No dissection or occlusion. Right external carotid artery: No occlusion or stenosis of the origin. Left common carotid artery: No stenosis. No dissection or occlusion. Left internal carotid artery: Mild atherosclerotic changes contribute to less than 50% stenosis by NASCET criteria at the origin of left internal carotid artery. Left external carotid artery: No occlusion or stenosis of the origin. Right vertebral artery: No stenosis. No dissection or occlusion. Left vertebral artery: No stenosis. No dissection or occlusion. Soft tissues: Normal. No significant soft tissue swelling. Bones/joints: No acute fracture. IMPRESSION: Mild atherosclerotic changes contribute to less than 50% stenosis by NASCET criteria at the origin of left internal carotid artery. REFERENCES: NASCET CRITERIA. The degree of stenosis in the cervical segment of the internal carotid artery is based on NASCET criteria. Normal is no stenosis. Mild is less than 50% stenosis. Moderate is 50-69% stenosis. Severe is 70% to 99% stenosis. Total occlusion is no detectable patent lumen.
--- NOTE | 2024-08-30 10:46 | CT_ITS ---
PROCEDURE INFORMATION: Exam: CT Cervical Spine Without Contrast Exam date and time: 08/30/2024 11:30 AM Age: 64 years old Clinical indication: Neck pain; Additional info: Neck pain, L arm numb/tingling TECHNIQUE: Imaging protocol: Computed tomography of the cervical spine without contrast. Radiation optimization: All CT scans at this facility use at least one of these dose optimization techniques: automated exposure control; mA and/or kV adjustment per patient size (includes targeted exams where dose is matched to clinical indication); or iterative reconstruction. COMPARISON: CT ANGIO NECK 01/21/2024 11:58 PM FINDINGS: Bones/joints: There is preservation of vertebral alignment. There is preservation of vertebral body heights. Odontoid process is intact. Atlantoaxial interval is maintained. Facet joints are aligned. No acute fracture. C2-C3: No significant disc bulge or herniation. No severe spinal canal stenosis. No significant neural foraminal narrowing. C3-C4: No significant disc bulge or herniation. No severe spinal canal stenosis. No significant neural foraminal narrowing. C4-C5: No significant disc bulge or herniation. No severe spinal canal stenosis. No significant neural foraminal narrowing. C5-C6: There is a disc osteophyte complex and facet arthropathy. There is mild spinal canal stenosis. There is [id number] bilateral neural foraminal narrowing. C6-C7: There is a disc osteophyte complex and facet arthropathy. There is mild spinal canal stenosis. There is mild right, moderate left neural foraminal narrowing. C7-T1: No significant disc bulge or herniation. No severe spinal canal stenosis. No significant neural foraminal narrowing. Lungs: Lung apices are normal. Soft tissues: Unremarkable. IMPRESSION: 1. No acute fracture. No traumatic subluxation. 2. Multilevel degenerative changes more pronounced at C5-C6 and C6-C7 level.
--- NOTE | 2024-08-30 10:46 | CT_ITS ---
PROCEDURE INFORMATION: Exam: CT Head Without Contrast Exam date and time: 08/30/2024 11:27 AM Age: 64 years old Clinical indication: Numbness / parasthesia; Left; Additional info: Possible stroke TECHNIQUE: Imaging protocol: Computed tomography of the head without contrast. Radiation optimization: All CT scans at this facility use at least one of these dose optimization techniques: automated exposure control; mA and/or kV adjustment per patient size (includes targeted exams where dose is matched to clinical indication); or iterative reconstruction. COMPARISON: MR HEAD/BRAIN WO CON 01/22/2024 11:39 AM FINDINGS: Brain: There is no evidence of acute intracranial hemorrhage, extra-axial collection or locoregional mass effect. There are scattered hypodensities in the periventricular and subcortical white matter. The appearance is nonspecific, but most likely represents chronic small vessel disease in a person of this age Cerebral ventricles: The ventricles, sulci and cisterns are normal in size and configuration for patient's age. No hydrocephalus or midline structure shift Pituitary gland and sella: Sellar/parasellar structures, craniocervical junction and orbits are unremarkable Paranasal sinuses: Scattered mucosal thickening throughout the paranasal sinuses. Mastoid air cells: Visualized mastoid air cells are well aerated. Bones: No calvarial fracture Soft tissues: Unremarkable. IMPRESSION: 1. No acute intracranial abnormality. No calvarial fracture. 2. If focal neurological symptoms persist brain MRI can be obtained for better evaluation
--- NOTE | 2024-08-30 10:47 | HMH.EDGENADL ---
Discharge Plan Disposition Patient Disposition: Home, Self-Care Condition: Good Prescriptions Prescriptions: No Action aspirin 81 mg Tablet,Delayed Release (Dr/Ec) 81 mg PO DAILY 90 Days Qty: 90 0RF atorvastatin 40 mg Tablet 80 mg PO HS 30 Days Qty: 60 0RF clopidogrel 75 mg Tablet 75 mg PO DAILY 90 Days Qty: 90 0RF nicotine 21 mg/24 hr Patch 24 Hour 21 mg transdermal DAILY 30 Days Qty: 28 0RF Referrals Follow up/Referrals: Provider,Referral, MD [Primary Care Provider, Medical] - See instructions Activity Restrictions/Add. Instructions Additional Instructions/Restrictions: You were evaluated in the emergency department today. At this time, your workup is reassuring. There is no evidence of stroke, and your heart enzymes are negative indicating no significant heart attack or stress or strain on your heart. Is unclear exactly what caused your symptoms. It is possible it could have been a TIA, but you are already on appropriate medical management for strokes including aspirin, statin, and Plavix. Please continue taking your medications at home and follow-up closely with your primary care provider. Return to the emergency department for new or worsening symptoms. Clinical Impressions Clinical Impression: Headache, Transient neurological symptoms Stand Alone Forms Stand Alone Forms: Work/School Release Instructions Patient Instructions: DI for Headache Print Language Print Language: Luxembourgish Discharge ED Provider: Ursula Kirkpatrick General Adult HPI General Chief complaint: Neuro Symptoms/Deficit Stated complaint: Sweats, L arm tingling, [id number] JAN 17 Time Seen by Provider: 08/30/24 10:34 Mode of Arrival: Ambulatory Source of Information: Patient Description of Symptoms (Recalled from ER Triage Doc. by RN): patient states an hour ago he was setting up for [employer] when his left arm started tingling. he is also short of breath. 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 He states that he was sitting at the [employer] when he noted that his left arm was tingling, and it turned into a burning pain from his elbow down to his fingertips. He notes that he has pain all the time in his neck and has a lot of issues with neck and back pain, but has not experienced anything like this before. He also notes that his head is throbbing on the left side. No vision changes, unilateral weakness, gait disturbance, or other concerns. He also denies any chest pain, mid/upper back pain, or abdominal pain currently. Related Data Previous Rx's ?Medication ?Instructions ?Recorded aspirin 81 mg tablet,delayed 81 mg PO DAILY 90 days #90 tabs 01/22/24 release atorvastatin 40 mg tablet 80 mg (2 x 40 mg) PO HS 30 days 01/22/24 #60 tabs clopidogrel 75 mg tablet 75 mg PO DAILY 90 days #90 tabs 01/22/24 nicotine 21 mg/24 hr daily 21 mg transdermal DAILY 30 days 01/22/24 transdermal patch #28 ea Allergies Allergy/AdvReac Type Severity Reaction Status Date / Time No Known Allergies Allergy Verified 05/24/17 10:58 [facility] Disclaimer: The information contained in this section may have been updated after the patient was seen, as this information can be updated by other users. Medical History Brain TIA Secondary polycythemia Constipation Pneumonia Abdominal tenderness Rupture, spleen Surgical History History of prostate surgery H/O hernia repair Social History Smoking Status: Current every day smoker tobacco type: cigarettes alcohol intake: former current occupational status: employed Travel in the last 8 weeks?: None Have you lived/traveled outside US in past 30 days?: No Contact w/someone who lives/traveled outside US past 30 days?: No Exposure to someone with infectious disease in past 14 days?: No Do you have a fever (greater than 100.4 F or 38 C)?: No Have you tested positive for COVID-19?: No Exposed to someone with COVID-19 in past 14 days?: No Do you have a sore throat?: No Do you have a cough?: No Do you have any weakness?: No Do you have any diarrhea?: No Are you experiencing any unusual bleeding?: No Do you have any muscle aches/pain?: No Do you have any abdominal pain?: No Are you experiencing loss of taste or smell?: No Other Medical History Have you received the Flu Vaccine for this season: No Have you received the Pneumonia Vaccine: No ROS Obtained: Yes All systems reviewed & no additional complaints except as documented Physical Exam General General appearance: alert and in no apparent distress Head Head exam: atraumatic and normocephalic Eye Eye exam: Present normal appearance, PERRL and EOMI ENT ENT exam: Present normal exam, normal oropharynx, mucous membranes moist and normal external ear exam Neck Neck exam: Present normal inspection, full ROM and trachea midline; Absent tenderness Chest Chest inspection: Present normal inspection and symmetric chest wall rise; Absent tenderness Respiratory Respiratory exam: Present normal lung sounds bilaterally; Absent respiratory distress, wheezes, stridor or accessory muscle use Cardiovascular Cardiovascular exam: Present regular rate and normal rhythm Abdominal Exam Abdominal exam: Present soft; Absent distention, tenderness or guarding Extremities Exam Extremities exam: Present normal inspection, full ROM and normal capillary refill; Absent tenderness or edema Back Exam Back exam: Present normal inspection and full ROM; Absent tenderness Neurological Exam Neurological exam: Present alert, oriented X3, CN II-XII intact and normal gait; Absent motor sensory deficit Psychiatric Psychiatric exam: Present normal affect and normal mood Skin Skin exam: Present warm and dry Medical Decision Making Medical Records Medical records reviewed: Yes I reviewed the patient's medical records. Screening: Per USPSTF and CDC recommendations, given the prevalence of disease in our region, it is our hospital?s policy to screen for HIV and viral Hepatitis for all patients aged 18 and over and those with ongoing risk factors. Jamie Inquiry Pt receiving controlled substance: No Vital Signs: 08/30/24 10:43 08/30/24 11:03 08/30/24 12:00 Temperature 97.8 F Temperature Source Oral Pulse Rate 55 L 56 L Pulse Rate [Right Radial] 65 Respiratory Rate 15 20 18 Blood Pressure 131/85 135/82 Blood Pressure [Right Arm] 165/102 H Blood Pressure Mean 100 96 Blood Pressure Mean [Right Arm] 123 Blood Pressure Source [Right Arm] Automatic Cuff Blood Pressure Position [Right Arm] Supine 02 Sat by Pulse Oximetry 98 96 97 Oxygen Delivery Method Room Air Room Air 08/30/24 12:09 08/30/24 12:44 08/30/24 13:00 Temperature Temperature Source Pulse Rate 50 L 48 L 54 L Pulse Rate [Right Radial] Respiratory Rate 16 18 16 Blood Pressure 156/93 H 133/84 143/82 H Blood Pressure [Right Arm] Blood Pressure Mean 110 Blood Pressure Mean [Right Arm] Blood Pressure Source [Right Arm] Blood Pressure Position [Right Arm] 02 Sat by Pulse Oximetry 99 98 96 Oxygen Delivery Method Room Air Room Air 08/30/24 13:30 08/30/24 14:00 08/30/24 15:04 Temperature 97.8 F Temperature Source Pulse Rate 54 L 63 52 L Pulse Rate [Right Radial] Respiratory Rate 19 14 16 Blood Pressure 141/86 H 144/90 H 137/89 Blood Pressure [Right Arm] Blood Pressure Mean Blood Pressure Mean [Right Arm] Blood Pressure Source [Right Arm] Blood Pressure Position [Right Arm] 02 Sat by Pulse Oximetry 98 98 Oxygen Delivery Method Room Air Room Air Lab Data Lab results reviewed: Yes I reviewed the patient's lab results. Lab Results 08/30/24 10:43: WBC 8.3, RBC 5.46, Hgb 15.9, Hct 46.1, MCV 84.4, MCH 29.1, MCHC 34.5, RDW 13.2, Plt Count 258, MPV 9.6, Neut % (Auto) 43.0, Lymph % (Auto) 44.5, [place] % (Auto) 8.3, Eos % (Auto) 3.0, Baso % (Auto) 1.1, Neut # (Auto) 3.6, Lymph # (Auto) 3.7, [place] # (Auto) 0.7, Eos # (Auto) 0.3, Baso # (Auto) 0.1, PT 11.4, INR 1.03, APTT 26.6, Sodium 137, Potassium 4.1, Chloride 107, Carbon Dioxide 27, Anion Gap 7.1, BUN 13, Creatinine 0.80, Estimated Creat Clear 82, Estimated GFR 98, Est GFR ( Amer) 118, Glucose 122 H, Calcium 8.6, Total Bilirubin 1.2, AST 43, ALT 18, Alkaline Phosphatase 64, Troponin I < 0.01, Total Protein 6.9, Albumin 4.1, Globulin 2.8, Albumin/Globulin Ratio 1.5, Triglycerides 102, Cholesterol 103 L, LDL Cholesterol Direct 40.55 L, VLDL Cholesterol 20, HDL Cholesterol 37 L, Cholesterol/HDL Ratio 2.8, Plasma/Serum Alcohol < 10 08/30/24 11:01: Urine Color Yellow, Urine Appearance Clear, Urine pH 6.5, Ur Specific [place] 1.015, Urine Protein Negative, Urine Glucose (UA) Negative, Urine Ketones Negative, Urine Blood Negative, Urine Nitrate Negative, Urine Bilirubin Negative, Urine Urobilinogen 0.2, Ur Leukocyte Esterase Negative, Urine RBC None, Urine WBC Occasional, Ur Squamous Epith Cells Occasional, Urine Bacteria Trace, Urine Opiates Screen Negative, Urine Methadone Screen Negative, Ur Barbituates Screen Negative, Ur Phencyclidine Scrn Negative, Ur Amphetamines Screen Negative, U Benzodiazepines Scrn Negative, Urine Cocaine Screen Negative, U Marijuana (THC) Screen Negative 08/30/24 13:30: Troponin I < 0.01 08/30/24 10:43 08/30/24 10:43 Orders (Tests/Meds): ED MEDICATIONS Discontinued Medications Generic Name Dose Route Start Last Admin Trade Name Freq PRN Reason Stop Dose Admin Acetaminophen 1,000 mg 08/30/24 10:46 08/30/24 11:12 Acetaminophen 500mg Tab PO 08/30/24 10:47 1,000 mg ONCE ONE Administration Aspirin 324 mg 08/30/24 10:54 08/30/24 11:12 Aspirin 81mg Chewable Tablet PO 08/30/24 10:55 324 mg ONCE ONE Administration Iopamidol 80 ml 08/30/24 11:27 08/30/24 11:28 Iopamidol-370 (76%);100ml Bottle IV 08/30/24 11:28 80 ml ONCE ONE Administration Ketorolac Tromethamine 15 mg 08/30/24 10:46 08/30/24 11:11 Ketorolac 30mg/Ml Vial IV 08/30/24 10:47 15 mg ONCE ONE Administration Sodium Chloride 10 ml 08/30/24 10:46 Sodium Chloride 0.9% 10ml Flush Syringe IV 09/29/24 10:45 NEEDED PRN Maintain IV Site Sodium Chloride 50 ml 08/30/24 11:27 08/30/24 11:28 0.9 % Sodium Chloride 50 Ml Vial IV 08/30/24 11:28 50 ml ONCE ONE Administration Sodium Chloride 10 ml 08/30/24 11:27 08/30/24 11:28 Sodium Chloride 0.9% 10ml Syr (Rad Only) IV 08/30/24 11:28 10 ml ONCE ONE Administration ORDERS Category Date Time Status CT angio head Stat Cat Scan 08/30/24 10:[address] angio neck Stat Cat Scan 08/30/24 10:[address] cervical spine wo con Stat Cat Scan 08/30/24 10:[address] head/brain wo con Stat Cat Scan 08/30/24 10:46 Completed Activated Partial Thrombo Time Stat Lab 08/30/24 10:43 Completed Complete Blood Count Auto Diff Stat Lab 08/30/24 10:43 Completed Comprehensive Metabolic Panel Stat Lab 08/30/24 10:43 Completed Drug Screen,Urine Stat Lab 08/30/24 11:01 Completed Ethyl Alcohol Stat Lab 08/30/24 10:43 Completed Lipid Panel Stat Lab 08/30/24 10:43 Completed Prothrombin Time INR Stat Lab 08/30/24 10:43 Completed Troponin I Q3H Lab 08/30/24 13:30 Completed Troponin I Stat Lab 08/30/24 10:43 Completed Urinalysis and Microscopic Stat Lab 08/30/24 11:01 Completed ECG Data Tracing #1: I reviewed this ECG and interpreted as documented below: Normal sinus rhythm with a ventricular rate of 64 bpm. Intraventricular conduction delay without acute ST changes concerning for ischemia. No interval change from prior EKG ECG initial impression date: 08/30/24 ECG initial impression time: 10:40 Medical Decision Narrative: In summary, this patient is a 64-year-old male presenting to the Emergency Department for evaluation of left arm burning/tingling and throbbing headache that started about an hour prior to arrival. Differential diagnoses considered include but are not limited to intracranial hemorrhage, CVA, intracranial mass, complex migraine, cervical radiculopathy, tension headache, ACS. Ruling out the most morbid conditions drove assessment. It should be noted patient's history includes prior CVA and tobacco use which may or may not be at goal therapy. This complicates all aspects of care by increasing patient's risk for morbidity. I reviewed patient's past medical records and noted previous admission with concern for CVA in the past as detailed in HPI. On exam, the patient is well-appearing, sitting upright in no acute distress with NIH stroke scale of 0 with no focal deficits noted on exam. Cardiopulmonary exam is reassuring, he has symmetric pulses. Workup included stroke CT scans to evaluate for intracranial pathology as well as cardiac workup to rule out ACS as a cause of his left arm symptoms. He was given IV Toradol, oral aspirin, oral Tylenol for symptomatic improvement. EKG obtained is reassuring. I independently interpreted CT scans prior to the radiologist read and noted no intracranial hemorrhage, no large space-occupying lesion, no large vessel occlusion. Please see their read for final interpretation. I had an interactive discussion with neuroradiology via [employer]on who noted no significant interval change from prior imaging. Labs were obtained that demonstrated reassuring CBC with no significant leukocytosis or anemia, reassuring chemistry with negative initial troponin, urinalysis is reassuring. On reassessment, patient had resolution of symptoms and is feeling fine. He remains neurologically intact. Given NIH stroke scale of 0, no LVO, and symptoms are resolved, no consideration for tPA/TNK or thrombectomy at this time. Workup initially is reassuring. I feel the patient would benefit from obtaining second troponin given the left upper extremity symptoms. If this were a TIA, he is already on appropriate outpatient medical management including aspirin, statin, Plavix. I do not feel that admission for risk factor modification would be helpful as he is already on risk factor medicated medications. At 1230, patient was placed in ED observation status pending second troponin to determine whether or not the patient would be appropriate for discharge versus admission. The patient was provided serial reevaluations and cardiac monitoring while awaiting ultimate disposition. On subsequent reassessment, the patient remains neurologically intact with no recurrence of symptoms. Second troponin resulted and is also negative. Given reassuring workup and exam, it is felt that the patient is appropriate for discharge at 1500. Total ED observation time was 2 hours and 30 minutes. Patient was given instructions for close follow-up on an outpatient basis and strict return precautions. I had a [id number] visit with the patient when providing discharge instructions. The total time involved in discharging this patient was less than 30 minutes. Critical Care Critical Care Time Critical Care Time: Yes Attestation: On 08/30/24, the high probability of a clinically significant, sudden or life threatening deterioration of the following system(s) required my full and direct attention, intervention and personal management. The time I documented below is in addition to time spent performing reported procedures but includes the following listed in this critical care notation. Total Time Total Critical Care Time: 45
--- OUTSIDE RECORDS SUMMARY | 2024-08-30 10:47 | XMS_ITS | Clinical Summary ---
Author Organization 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 Dizziness 07/27/2021 Social History Tobacco Use Types Packs/Day Years Used Date Smoking Tobacco: Every Day Smokeless Tobacco: Never Alcohol Use Standard Drinks/Week Comments Yes 1 (1 standard drink = 0.6 oz pur e alcohol) Sex and Gender Information Value Date Recorded Sex Assigned at Not on file Legal Sex Male 10:48 AM EDT Gender Identity Not on file Sexual Orientation Not on file Last Filed Vital Signs Vital Sign Reading Time Taken Comments Blood Pressure 124/90 2021 2:24 PM EDT Pulse 62 2021 2:24 PM EDT Temperature - - Respiratory Rate - - Oxygen Saturation 97% 2021 2:24 PM EDT Inhaled Oxygen Concentration - - Weight 77.1 kg (170 lb) 2021 2:24 PM EDT Height 175.3 cm (5' 9 ) 2021 2:24 PM EDT Body Mass Index 25.1 2021 2:24 PM EDT Plan of Treatment Health Maintenance Due Date Last Done Comments [facility]-Depression Screening 1961 [facility]-/Child/Adol SDOH Screenings 1961 [facility]- SDOH Screenings 07/27/1979 [facility]-Adult SDOH Screenings 07/27/1979 [facility]-DTaP,Tdap,and Td Vaccine s (1 - Tdap) 1980 CT Colonography 2006 Colonoscopy 2006 FIT-DNA 2006 FIT 2006 FOBT 2006 Sigmoidoscopy 2006 [facility]-Colorectal Cancer Screening 2006 [facility]-Pneumococcal Vaccine: 50 + Years (1 of 1 - PCV) 07/27/2011 [facility]-Zoster Vaccines (1 of 2) 07/27/2011 [id number] Vaccine (1 - 20 24-25 season) 2023 [facility]-Influenza Vaccine (Seaso n Ended) 2024 [facility]-RSV Vaccine: 60+ Years o r (1 - 1-dose 75+ series) 2036 [facility]-Diabetes: Hemoglobin A1C Discontinued 2021 HPV Vaccines Aged Out No longer eligi ble based on patient's age to complete this topic [facility]-HIB Vaccines Aged Out No longer e ligible based on patient's age to complete this topic [facility]-Hepatitis A Vaccines Aged Out No longer eligible based on patient's age to complete this topic [facility]-IPV Vaccines Aged Out No longer e ligible based on patient's age to complete this topic [facility]-Rotavirus Vaccines Aged Out No lo nger eligible based on patient's age to complete this topic Procedures Procedure Name Priority Date/Time Associated Diagnosis Comments HEMOGLOBIN A1C Routine 2021 4:01 PM EDT Neuropathy from Last 3 Months or Most Recently Relevant to Health Maintenance Results * (ABNORMAL) Hemoglobin A1c (2021 4:01 PM EDT) Hemoglobin A1c 5.8(H) <5.7 % 2021 7:26 PM EDT [facility] Blood Venous blood specimen / Unknown Venipuncture / Unknown 2021 4:01 PM EDT 2021 4:01 PM EDT Narrative [facility] - 2021 7:26 PM EDT HA1C Interpretive Data: Diagnosis of Diabetes: Diabetic > or = 6.5% Pre-diabetic 5.7 to 6.4% Non-diabetic < or = 5.6% Glycemic Targets for Type I and Type II Diabetics: Non- Adults <7.0% Adults <6.0% Children and Adolescents <7.5% Source: [place] [employer]. Standards of medical care in diabetes,2017. Diabetes Care.2017:40 (suppl 1):S1-S135. HbA1c assay performed by an ion-exchange chromatography method that is certified traceable to the DCCT. us Monica Reyna MD LAB BLOOD ORDERABLES Final Result [facility] [address] [place] [address] from Last 3 Months or Most Recently Relevant to Health Maintenance Insurance [facility] Care Teams Carpenters Supervisor Relationship Specialty Start Date End Date Alda France MD [address] [place] [address] [place] [address] PCP - General 07/01/21 Lauryn Garvey MD [address] [facility] [address] [place] [address] Resident Neurology 07/26/21
--- OUTSIDE RECORDS SUMMARY | 2024-08-30 10:47 | XMS_ITS | Clinical Summary ---
Author Organization [facility] Address [address] [place] [phone] Phone Care Team Providers Care Interior Mechanic Name Role Phone Alda France MD Primary Care Provider [phone] Allergies No known active allergies Medications No known medications Active Problems Problem Noted Date Diagnosed Date Right arm weakness 06/18/2020 Near syncope 06/17/2020 Dependence on nicotine from cigarettes Sinus bradycardia 06/17/2020 Resolved Problems Problem Noted Date Diagnosed Date Resolved Date TIA (transient ischemic attack) 06/17/2020 06/18/2020 Surgical History Surgery Date Site/Laterality Comments PROSTATE SURGERY SPLENECTOMY Family History Relation Name Status Comments Father Mother Alive Social History Tobacco Use Types Packs/Day Years Used Date Smoking Tobacco: Every Day Cigarettes 1.5 20 Smokeless Tobacco: Never Tobacco Cessation:Ready to Q uit: Yes Alcohol Use Standard Drinks/Week Comments Yes 1 (1 standard drink = 0.6 oz pur e alcohol) beer 12 pack per week Sex and Gender Information Value Date Recorded Sex Assigned at Not on file Legal Sex Male 9:09 AM EST Gender Identity Not on file Sexual Orientation Not on file Obstetrics History Last Filed Vital Signs Vital Sign Reading Time Taken Comments Blood Pressure 122/75 06/18/2020 7:20 AM EDT Pulse 57 06/18/2020 7:20 AM EDT Temperature 36.4 C (97.6 F) 06/18/2020 7:20 AM EDT Respiratory Rate 20 06/18/2020 7:20 AM EDT Oxygen Saturation 98% 06/18/2020 7:20 AM EDT Inhaled Oxygen Concentration - - Weight 77.1 kg (170 lb) 06/17/2020 2:53 PM EDT Height 177.8 cm (5' 10 ) 06/17/2020 2:53 PM EDT Body Mass Index 24.39 06/17/2020 2:53 PM EDT Plan of Treatment Health Maintenance Due Date Last Done Comments Meningococcal Vaccine ACWY ( 1 - Risk 2-dose series) 07/27/1963 Annual Wellness Exam 1964 Meningococcal B Vaccine (1 o f 5 - Increased Risk) 07/27/1971 Hepatitis C Screening 07/27/1979 DTaP/TDaP/Td (1 - Tdap) 1980 Pneumococcal Vaccine 50+ (1 of 2 - PCV) 1980 Cologuard 2006 Colon Cancer Screening 2006 Colonoscopy 2006 FIT 2006 Sigmoidoscopy 2006 Virtual Colonography 2006 Low Dose Lung Cancer Screening 07/27/2011 Zoster (1 of 2) 07/27/2011 COVID-19 Vaccine ( - 2023-2 5 season) 2023 Influenza Vaccine (Season Ended) 2024 Hepatitis B Vaccine Aged Out No longe r eligible based on patient's age to complete this topic Insurance Care Teams Interior Mechanic Relationship Specialty Start Date End Date Alda France MD [address] [place] [address] [place] [address] PCP - General Family Medicine 05/03/16
--- OUTSIDE RECORDS SUMMARY | 2024-08-30 10:47 | XMS_ITS | Data Portability ---
Author Organization [facility]E [facility] Address [address] [facility] [address] [place] [address] Care Team Providers Care Underliner Name Role Phone TRUDY MEEKS Referring Provider Assessment Encounter Date Assessment Date Assessment LastModified by Organization Details LastModified Time 10/20/2021 10/20/2021 1. Dizziness. He describes a lightheaded, fuzzy feeling which is not clearly postural and which is intermittent but can occur frequently. Symptoms are nonspecific. He does not describe vertigo to suggest vestibulopathy. Symptoms do not sound like migrainous vertigo. I do not think this is cervicogenic vertigo. He has had cardiac workup including recent tilt table test; the latter at least was unrevealing. Brain MRI last year was reportedly negative. I think there is a good chance that this is related to anxiety; his thinks this is the case. 2. Left hand paresthesias c/w ulnar neuropathy 3. ?Tension headaches. Discussed the above. He has sertraline at home but has never taken this on a consistent basis. I suggested that he try this medicine regularly for at least a month to see if this is helpful for dizziness (and anxiety). The left hand symptoms are mild and intermittent; advised that he avoid prolonged elbow compression but if this lingers/worsens then could do NCS/EMG. he knows to call me anytime as needed. [email or web address] Not available 10/20/2021 19:46:47 Plan of Treatment Reminders Order Date Submit Date Provider Last Modified By Organization Details Last Modified Time Details Appointments None record ed. Lab None record ed. Referral None record ed. Procedures None record ed. Surgeries None record ed. Imaging None record ed. Medication Orders None record ed. Patient TargetsNo targets recorded. Patient Instructions Encounter Date Encounter Id Patient Instructions Last Modified By Organization Details Last Modified Time 10/20/2021 [id number] I spent 40 minutes with the patient, 5+ minutes reviewing records, 5-10 minutes typing this. [email or web address] Not available 10/20/2021 19:47:30 Reason for Referral None Reported. Problems No Known Problems Procedures Surgical History Date Name Laterality Status Provider Name and Address Organization Details Recorded Time splenectomy completed [facility] 10/20/2021 12:58:02 Prostatectomy (turp) completed [facility] 10/20/2021 12:58:49 Hernia Repair completed [facility] 10/20/2021 12:59:07 Imaging Results None recorded. Procedure Notes None recorded. Medical Equipment None Reported. Allergies No known drug allergies Medications Name Sig Start Date Stop Date Status Note LastModified by Organization Details LastModified Time Tylenol 325 mg tablet Take 2 tablets every 6 hours by oral route as needed. active Not Available Not Available No t Available lisinopril 5 mg tablet Take 1 tablet every day by oral route. active Not Available Not Available No t Available Vitals Date Recorded Body height Body mass index (BMI) Body weight Heart rate Oxygen saturation Oxygen saturation in Arterial blood by Pulse oximetry Systolic blood pressure Diastolic blood pressure Provider Name and Address Organization Details Last Updated DateTime 2 177.8 cm 24.3 kg/m2 84370.5 1 g 65 /min 98 % 98 % 122 mm[Hg] 82 mm[Hg] [facility] 2 13:01:03 Social History Question Answer Notes LastModified by Organizat ion Details LastModified Time Tobacco Smoking Status Current Every Day Smoker [facility] 10/20/2021 12:57:41 What Was The Date Of Your Most Recent Tobacco Screening? 10/20/2021 Information not available 10/20/2021 How Much Tobacco Do You Smoke? 1 PPD Information not available 10/20/2021 Sex: Unknown Functional Status None recorded. Mental Status None recorded. Family History Relationship Description Onset Age of this Age Resolved Age Notes LastModified by Organization Details LastModified Time Father Diabetes mellitus [email or web address] Not available 2021 12:56:15 Father Heart disease [email or web address] Not available 2021 12:56:40 Father Hypertensive disorder [email or web address] Not available 2021 12:56:54 Mother Heart disease [email or web address] Not available 2021 12:56:40 Mother Hypertensive disorder [email or web address] Not available 2021 12:56:54 Medical History Condition Response Depression Y Hypertension Y Past Encounters Encounter ID Performer Location Encounter Start Date Encounter Closed Date Diagnosis/Indication Diagnosis SNOMED-CT Code Diagnosis ICD10 Code Diagnosis Note [id number] LAURA ADAMS MD NEUROLOGY [facility] [address] [place] [address] 10/20/2021 12:42:11 10/20/2021 14:09:44 Dizziness [id number] R42 Ulnar neur opathy of left arm [id number] 79900 G56.22 Anxiety 87126328 F41.9 Health Concerns Section Related Observation LastModified by Organization Detai ls LastModified Time None Recorded Concern Status LastModified by Organization Details LastModified Time None Recorded Advance Directives Directive None Recorded Payers Insurance Date Sequence Insurance Name Policy Number Policy Kramer Covered Member ID Kramer Member ID Guarantor Name 10/26/2021 1 [facility] [id number] Riley Blankenship [id number] Riley Blankenship Notes Date Note Type Note Provider Name and Address Organization Details Recorded Time 10/20/2021 text/html This is a 61 year-old man seen at the request of Dr. Meeks for evaluation of dizziness. He says he just gets dizzy, and the only thing that helps is to lie down for a few minutes.This has been a problem for 2+ years.This is like a lightheaded, fuzzy feeling. This is not a spinning sensation. This is not a feeling like he is going to pass out. If he is able to lie down, he will feel better in 10-15 minutes, but if he cannot, it will last longer but he can function when he feels this way.Drinking Pepsi or coffee possibly can trigger this, he recently figured out.This does not happen daily but can happen 5-6 times a week.Can happen seated or standing but not when resting in bed.No focal neurological symptoms associated.Vision may get a little tiny bit blurry.He has seen cardiology and pulmonology about symptoms and nothing apparently was diagnosed.Wore heart monitor, had echo, and he had tilt table test at last month - negative.Brain MRI was done last year and apparently negative.I think he was seen by [facility] about this as well. He is prone to headaches, dull frontal, not daily. 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 Told this was not stroke but symptoms attributed to a damaged nerve in his neck (?) LAURA ADAMS MD [address] [place], [address], [facility] 10/20/2021 19:47:41
--- OUTSIDE RECORDS SUMMARY | 2024-08-30 10:47 | XMS_ITS | Encounter Summary ---
Author Organization Healthcare Address [address] [place] [address] Care Team Providers Care Custom Seamstress Name Role Phone Alda France MD Primary Care Provider Lauryn Laboy MD Unavailable Encounter Details Date Type Department Care Team (Late st Contact Info) Description 07/19/2021 Community [facility] [address] [place] [address] [facility] Link, PhysicianMD [address] [place] [address] Social History Tobacco Use Types Packs/Day Years Used Date Smoking Tobacco: Never Assessed Sex and Gender Information Value Date Recorded Sex Assigned at Not on file Legal Sex Male 10:48 AM EDT Gender Identity Not on file Sexual Orientation Not on file documented as of this encounter Plan of Treatment Not on file documented as of this encounter Visit Diagnoses Not on filedocumented in this encounter Care Teams Custom Seamstress Relationship Specialty Start Date End Date Alda France MD [address] [place] [address] [place] [address] PCP - General 07/01/21 Lauryn Garvey MD [address] [facility] [address] [place] [id number] Resident Neurology 07/26/21 documented as of this encounter
--- OUTSIDE RECORDS SUMMARY | 2024-08-30 10:47 | XMS_ITS | Data Portability ---
Author Organization [facility] - [facility] and [facility] [place] Address [address] [place] [address] Assessment Encounter Date Assessment Date Assessment LastModified by Organization Details LastModified Time 02/04/2024 02/04/2024 -ASA, Plavix, Atorvastatin 80 mg daily -reviewed Hospital records -smoking cessation -referral to Cardiology for EKG Holter monitoring -f/u as scheduled [place] [address] Not available 02/04/2024 10:22:01 Plan of Treatment Reminders Order Date Submit Date Provider Last Modified By Organization Details Last Modified Time Details Appointments OV EST 15 2024 10:15A M Trey Eaton M.D Not available Not available Not available Lab None recorded . Referral None recorded . Procedures None recorded . Surgeries None recorded . Imaging cardiac rehabilitation program director 2023 024 [email or web address] [employer], [address] [place] [address], [place] [address], [place], [address], 03/20/2024 08:31:29 electroc claudiogra sherry 2023 024 [email or web address] [facility] [facility] [address], [place], [address], 03/05/2024 11:50:00 Medication Orders aspirin 81 mg chewable tablet 2023 024 [facility], [address] [place] [address] Dr [place], [place], [id number], 05/20/2024 09:36:29 Plavix 75 mg tablet 2023 024 SAHRA Ramos [facility], [address] [place], [place], [id number], 05/20/2024 09:36:28 atorvast atin 80 mg tablet 2023 [facility], [address] [place], [place], [id number], 02/06/2024 11:46:02 Patient TargetsNo targets recorded. Patient InstructionsNo instructions recorded. Reason for Referral None Reported. Results Created Date Observation Date Name Description Value Unit Range Abnormal Flag Note LastModifiedBy Organization Detail LastModifiedTime 03/05/2003/05/2024 elect rocar diogr am No observ ation record ed. [address], [place], [address], 03/06/2024 08:33:50 03/05/20 elect rocar diogr am No observ ation record ed. [email or web address] Not Available 2023 08:33:51 04/01/1903/24/2024 cardi ac monit or No observ ation record ed. [email or web address] [employer] [address] [place] [address], [place], [address], 04/01/2024 11:53:05 04/07/1904/07/2024 US, cameron ya arter y [facility] Name: JOSE LUIS TRUJILLO [facility] Med[facility] l [employer] [facility] Phys: Chetna rodas HAND FABRIC CUTTER,[place] [address] : 1960 Age: 63 Sex: M Acct: [id number] Loc: Jeffery.US PHONE #: Exam Date: 2024 Status : REG CLI FAX #: Rad# [id number] Unit# [id number] Admit Date: 2024 EXAMS: CPT CODE: [id number] 859 CAROTI D DUPLEX DOPPLE R [id number] CLINIC AL INFORM ATION: Follow -up caroti d stenos is. Dizzin ess and headac he COMPAR ARY: 2020 TECHNI QUE: Multip le graysc naomi sonogr aphic images of the bilate ral caroti d system s were obtain ed in the transv erse and longit udinal planes . Color Dopple r and spectr al wavefo rm analys is were applie d to assess vascul ar flow. All stenos is percen tages are made and refere nced to the distal physician internist al caroti d artery . FINDIN GS: On the right, mild diffus e intima l thicke alon with mild plaque deposi tion at the bifurc ation and ICA origin . Peak systol ic veloci ties in the right common , physician internist al, and cage loader al caroti d arteri es are 100, 77 and 89 cm/s, respec tively . Wavefo erica within normal limits . Veloci ty ratios within normal limits . Normal flow in the right verteb ral and subcla vian arteri es. On the left, mild diffus e intima l thicke alon. Modera te plaque deposi tion at the bifurc ation and into the ICA. Peak systol ic veloci ties in the right common , physician internist al, and cage loader al caroti d arteri es are 78, 85 and 78 cm/s, respec tively . Wavefo erica within normal limits . Veloci ty ratios within normal limits . Normal flow in the left verteb ral and subcla vian arteri es. IMPRES NATHEN: 1. Stable 1-39% stenos is of the bilate ral physician internist al caroti d arteri es. Commun icatio n: Per this tamiitte n report . This report is genera nadine using voice recogn ition comput er softwa re. Inadve rtent errors may have occurr ed while dictat ing report . Common sense approa ch is apprec iated and do not hesita te to call for clarif icatio n when necess kay. Electr onical ly Signed by George Fuller on 2024 at 1111 Report ed and signed by: DAISY Fuller M.D. PAGE 1 Signed Report (ANDREW NUED) [facility] Name: JOSE LUIS TRUJILLO [address] [place] [address] [employer] Phys: Chetna rodas HAND FABRIC CUTTER,[place] [facility] [place] [address] : 1960 Age: 63 Sex: M Acct: [id number] Loc: PHONE #: Exam Date: 2024 Status : REG CLI FAX #: Rad# [id number] Unit# [id number] Admit Date: 2024 EXAMS: CPT CODE: [id number] 859 CAROTI D DUPLEX DOPPLE R [id number] CC: NO PRIMAR Y CARE PHYSIC GLORIA; Travis y Chetna rodas HAND FABRIC CUTTER Dictat ed Date/T nubia: 2024 (1111) Techno logist : Paddy EVANS Transc ribed Date/T nubia: 2024 (1111) Transc riptio nist: DR.HAR TANVIR Soto onic Signat ure Date/T nubia: 2024 (1111) Printe d Date/T nubia: 2024 (1115) BATCH NO: N/A PAGE 2 Signed Report CC'ed Logic: Orderi ng Provid er: CHETNA CORSS Y Attend ing Provid er: CHETNA CROSS Y Referr ing Provid er: CHETNA CROSS Y Consul ting Provid er: PHYSIC GLORIA NO [address], [place], [address], 04/07/2024 17:00:06 Result Notes None recorded. Problems Name Problem SNOMED Code Status Onset Date Resolution Date Notes Provider Name and Address Organization Details Recorded Time Chronic obstructive pulmonary disease 54558995 Active 2021 Robel Holt MD [facility] [employer],[address] [place], [address] [place] [address] & [place] 2 01:39:33 Multiple nodules of lung 253342984 Active 2021 Robel Holt MD [facility] [employer],[address], [place], [address], [place] - [place] - [place] & [place] 2 01:40:21 Problem Notes None recorded. Procedures Surgical History Date Name Laterality Status Provider Name and Address Organization Details Recorded Time Other completed Ml OROPEZA [facility] & [place] 03/05/2024 10:05:46 Colonoscopy completed Ml De La Cruz [facility] & [place] 03/05/2024 10:05:46 Imaging Results None recorded. Procedure Notes None recorded. Medical Equipment None Reported. Allergies No known drug allergies Medications Name Sig Start Date Stop Date Status Note LastModified by Organization Details LastModified Time atorvastati n 80 mg tablet TAKE ONE TABLET BY MOUTH DAILY active Not Available Not Available No t Available doxycycline hyclate 100 mg capsule 03/03 completed Not Available Not Available Not Available meloxicam 15 mg tablet 03/05 completed Not Available Not Available Not Available clopidogrel 75 mg tablet TAKE ONE TABLET BY MOUTH DAILY active Not Available Not Available No t Available aspirin 81 mg tablet,warner yed release Take 1 tablet every day by oral route. 03/03 completed Not Available Not Available Not Available lansoprazol e 30 mg capsule,del ayed release Take 1 capsule every day by oral route. 02/03 completed Not Available Not Available Not Available nicotine 21 mg/24 hr daily transdermal patch Apply 1 patch every day by transderm al route. 03/03 completed Not Available Not Available Not Available sertraline 25 mg tablet Take 1 tablet every day by oral route. 02/03 completed Not Available Not Available Not Available aspirin 81 mg chewable tablet chew ONE TABLET BY MOUTH DAILY active Not Available Not Available No t Available metoprolol succinate ER 25 mg tablet,exte nded release 24 hr Take 1 tablet twice a day by oral route. 02/03 completed Not Available Not Available Not Available lorazepam 1 mg tablet TAKE ONE TABLET BY MOUTH TWICE DAILY active Not Available Not Available No t Available ondansetron 4 mg disintegrat ing tablet 03/03 completed Not Available Not Available Not Available amoxicillin 875 mg-potassiu m clavulanate 125 mg tablet 03/03 completed Not Available Not Available Not Available Ventolin HFA 90 mcg/actuati on aerosol inhaler Inhale 2 puffs every 4 hours by inhalatio n route as needed. 02/03 completed Not Available Not Available Not Available Vitals Date Recorded Body height Body mass index (BMI) Body weight Body temperature Oxygen saturation Oxygen saturation in Arterial blood by Pulse oximetry Heart rate Systolic blood pressure Diastolic blood pressure Provider Name and Address Organization Details Last Updated DateTime 4 177.8 cm 25 kg/m2 50764.7 9 g 97.3 [degF] 96 % 96 % 63 /min 122 mm[Hg] 78 mm[Hg] Maria G Collins [facility] & [place] 4 10:06:32 Date Recorded Body height Body mass index (BMI) Body weight Oxygen saturation Oxygen saturation in Arterial blood by Pulse oximetry Heart rate Systolic blood pressure Diastolic blood pressure Provider Name and Address Organization Details Last Updated DateTime 4 177.8 cm 24.5 kg/m2 66797.3 g 97 % 97 % 63 /min 120 mm[Hg] 66 mm[Hg] Ml Delvis [facility] & [place] 4 10:11:29 Social History Question Answer Notes LastModified by Organizat ion Details LastModified Time Tobacco Smoking Status Current Every Day Smoker 1-2 PPD hx for 40 years [facility] [place] 01/24/2022 13:59:59 Do You Have An Advance Directive? No [email or web address] Information not available 03/05/2024 Are You Blind Or Do You Have Difficulty Seeing? No [email or web address] Information not available 03/05/2024 What Was The Date Of Your Most Recent Tobacco Screening? 03/02/2024 [email or web address] Information not available 03/05/2024 What Is Your Current Pack Years? 30ormorepack years Information not available 01/24/2022 Are You Passively Exposed To Smoke? Yes [email or web address] Information not available 03/05/2024 How Much Tobacco Do You Smoke? 2 PPD Information not available 01/24/2022 How Many Years Have You Smoked Tobacco? 40 Information not available 01/24/2022 Sex: Unknown Functional Status Question Answer Note LastModified by Organizat ion Details LastModified Time Do you use any illicit or recreational drugs? No [email or web address] Information not available 03/05/2024 What is your level of alcohol consumption? Occasional [email or web address] Information not available 03/05/2024 Do you or have you ever used smokeless tobacco? Never used smokeless tobacco [email or web address] Information not available 03/05/2024 What is your exercise level? None [email or web address] Information not available 03/05/2024 Mental Status Question Answer Note LastModified by Organization D etails LastModified Time Do you feel stressed (tense, restless, nervous, or anxious, or unable to sleep at night)? [id number] [email or web address] Information not available 03/05/2024 Family History Relationship Description Onset Age of this Age Resolved Age Notes LastModified by Organization Details LastModified Time Mother Hypothyroidi sm [email or web address] Not available 2023 09:58:18 Mother Hypertensive disorder CHART_MERGE Not available 12/25 16:50:45 Mother Heart disease CHART_MERGE Not available 12/25 16:50:45 Father Malignant neoplasm of lung deceas ed [email or web address] Not available 03/05/2024 09:58:18 Father Chronic obstructive pulmonary disease CHART_MERGE Not available 12/25 16:50:45 Father Diabetes mellitus [email or web address] Not available 2023 09:58:18 Father Heart disease CHART_MERGE Not available 12/25 16:50:45 Medical History Condition Response Stroke Y Past Encounters Encounter ID Performer Location Encounter Start Date Encounter Closed Date Diagnosis/Indication Diagnosis SNOMED-CT Code Diagnosis ICD10 Code Diagnosis Note [id number] [facility] [place] [address] 02/04/2024 09:25:50 02/04/2024 10:24:43 Ischemic stroke 601447978 I63.9 Stenosis o f intracranial vessel 0926890368 4048913 I67.89 Cerebrovas cular disease 95175716 I67.9 [id number] [facility] [address] [address] 03/05/2024 09:56:28 03/05/2024 11:01:07 Screening for cardiovascular system disease 151577832 Z13.6 History of cerebrovascular accident 154276688 Z86.73 The patient has prior CVA is most likely due to intracrani al vascular disease but his presenting symptomato logy at OSH is very concerning for a TIA. I am not convinced that is completely a TIA due the fact that he had global neurologic deficits but he did have some focal speech abnormalit y. The patient had acceptable echocardio gram and at OSH but he did not have any documented electrical abnormalit y/ arrhythmia while in-house and certainly with a possible TIA and prior documented CVAs there is a chance that the patient has some underlying occult atrial fibrillati on / flutter that could have caused the prior CVAs documented on head imaging while in-house. We will proceed with a 14 day Holter monitor to rule out any underlying arrhythmia that could be contributi ng. Complex migraine could also be on differenti al as well. Tobacco de pendence syndrome 23946803 F17.200 the patient encouraged to cease all tobacco products. Health Concerns Section Related Observation LastModified by Organization Detai ls LastModified Time None Recorded Concern Status LastModified by Organization Details LastModified Time None Recorded Advance Directives Directive N: Payers Insurance Date Sequence Insurance Name Policy Number Policy Kramer Covered Member ID Kramer Member ID Guarantor Name 09/23/2020 1 [facility] [id number] Riley Trujillo [id number] Riley Trujillo 04/02/2024 1 [facility] Riley Trujillo [id number] Riley Trujillo 05/18/2021 1 *SELF PAY* An chau Trujillo 05/18/2021 1 [facility] Riley Trujillo [id number] Riley Trujillo 05/18/2021 1 [facility] Riley Trujillo [id number] Riley Trujillo Notes Date Note Type Note Provider Name and Address Organization Details Recorded Time 02/04/2024 text/html Mr. Riley fuller is a 63 y/o M who is referred to clinic for evaluation. On 01/21/24 he had sudden onset of difficulty speaking. He could not get words out but understood what was being said to him. This was associated with some right hand tingling the day before. He also had a severe headache. Aphasia lasted about 15 minutes before resolving. He went to [facility] and had CT angio which showed focal Left M1 stenosis of MCA and MRI brain showed two small foci of acute infarct in the left hemisphere. EKG showed nsr and Echo was unremarkable. He had significant HTN on presentation. He is taking ASA, Plavix, Atorvastatin for stroke prevention. Trey Eaton M.D [address] [place] [address], [address], [place], [address], [place] - [facility] - [place] & [place] 02/04/2024 10:22:27 03/05/2024 text/html Riley blevins is is a very pleasant 63-year-old male with a past medical history of CVA, intracranial vascular disease, current tobacco abuse, anxiety, osteoarthritis, family history of OH-mom had OH in 60s and dad had OH in 60s,.... who was initially seen as an outpatient on 03/05/2024 after the patient was documented with CVA/TIA an OSH - [facility]. the patient's primary care provider is.... history today, 03/05/2024, reveals that the patient presented to an OSH on 01/21/2024 after he was playing with his dog and appreciated a sudden onset of speech difficulties and global (not focal) difficulty moving his body. Due to the acute change in his functional status - not only speech Issues but also his global motor dysfunction his took him to the ER upon presentation. Upon OSH ER evaluation multiple imaging modalities including echocardiogram was acceptable however, an MRI revealed to prior areas small foci of acute infarct in the left hemisphere, CT angiogram of his head revealed some intracranial vascular disease, and his initial intake blood pressure was significantly hypertensive-systolic of 200. However, the overall etiology of the patient's presenting symptomatology was not clearly delineated and was deemed secondary to TIA versus what I suspect to be complex migraine due the fact that after the symptomatology he did develop headache. However, today, 03/05/2024 the patient is referred to us today due the fact that were concerns that the aforementioned symptomatology was due to a TIA particularly in the context of prior CVAs. upon review notes in [facility] so far it appears the patient has been seen by a neurologist and neurology is wanting cardiac consultation to ensure that the patient does not have any underlying atrial fibrillation that could have caused / contributing to the patient's possible presenting TIA. History today, 03/05/2024, reveals the patient was previously seen by water treatment specialist-Dr. Olmedo from [facility]. He states that he underwent thorough cardiac evaluation including an echocardiogram and a heart catheterization due the fact that he was appreciating some atypical chest pains. He states he has not had any significant abnormalities with regards to his heart structure function nor any significant blockages. The patient states that he is doing reasonably well from a cardiac standpoint. The patient denies any new worsening chest pain, pressure, tightness, squeezing. The patient denies any new worsening shortness breath but unfortunately is not exercising. 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 The patient states that he does get mildly short of breath 4 metabolic equivalents but he denies any evolution of this. The patient denies any palpitations, pounding, flip-flopping. The patient denies any heart failure symptomatology such as swelling, PND, orthopnea. The patient denies any dizziness, lightheadedness with exception to occasional dizziness due to vertigo. The patient denies any presyncope, syncope, nor vascular claudication. Prior Studies:03/05/2024 EKG today revealing sinus bradycardia 50 beats per minute. [place] interval 155, QRS duration 110, QTC 421. T-wave inversion appreciated AVR. Otherwise acceptable EKG1 CBC WNL. CMP WNL with exception to glucose of 116. Lipid panel: Total 167, triglycerides 183, HDL 39, LDL 111. Free T4 and TSH WNL. Urine drug screen WNL. Urinalysis WNL.01/21/2024 OSH 2D echocardiogram: LV normal in size. LV systolic function is normal. LVEF = 55%. Normal LV wall thickness. Normal LV segmental wall motion. Diastolic function is normal. RV systolic function is normal. Biatrial size is normal. No evidence of interatrial shunt. Mild RV dilation. No significant valvular stenosis or regurgitation. CT angiogram of the head: Left-sided infarcts in both the middle cerebral artery distribution as well as the posterior cerebral artery distribution. No significant carotid vascular disease.01/21/2024 CT angiogram head and neck: No occlusion or significant stenosis.CT of head/brain without contrast: Proximal M1 segment of left MCA has focal high-grade stenosis/ near occlusion with string of opacification. Distally the vessel is patent. Otherwise patent intracranial vasculature. DONALD POOLE PA-C [address] [place] [address], [address], [place], [address], [facility] - [facility] - [place] & [place] 03/05/2024 12:30:09
--- OUTSIDE RECORDS SUMMARY | 2024-08-30 10:47 | XMS_ITS | Encounter Summary ---
Author Organization [facility] Address [address] [place] [address] Care Team Providers Care Dowel Sticker Operator Name Role Phone Alda France MD Primary Care Provider [phone] Lauryn Laboy MD Unavailable Reason for Referral * Consultation (Routine) - Closed Specialty Diagnoses / Procedures Referred By Contac t Referred To Contact Neurology Diagnoses Dizziness Alda France MD [address] [place] [address] [place] [address] Phone: tel: fax: Referral ID Status Reason Start Date Expiration Date V isits Requested Visits Authorized [id number] Closed Specialty Services Required 07/01/2021 12/31/2022 1 1 Encounter Details Date Type Department Care Team (Late st Contact Info) Description 07/01/2021 Community [facility] [address] [place] [address] Alda France MD [address] [place] [address] [place] [address] Dizziness (Primary Dx) Social History Tobacco Use Types Packs/Day Years Used Date Smoking Tobacco: Never Assessed Sex and Gender Information Value Date Recorded Sex Assigned at Not on file Legal Sex Male 10:48 AM EDT Gender Identity Not on file Sexual Orientation Not on file documented as of this encounter Plan of Treatment Scheduled Referrals Name Type Priority Associated Diagnoses Order Schedule Ambulatory referral to Neurology Outpatient Referral Routine Dizziness Ordered: 07/01/2021 documented as of this encounter Visit Diagnoses Diagnosis Dizziness- Primary Dizziness and giddiness documented in this encounter Care Teams Dowel Sticker Operator Relationship Specialty Start Date End Date Alda France MD [address] [facility] [place] [address] PCP - General 07/01/21 Lauryn Garvey MD [address] [facility] [address] [place] [address] Resident Neurology 07/26/21 documented as of this encounter
--- OUTSIDE RECORDS SUMMARY | 2024-08-30 10:47 | XMS_ITS | Clinical Summary ---
Author Organization [facility] Address [address] [place] [address] Care Team Providers Care Director Appointment Name Role Phone Unavailable Primary Care Provider Unavailabl e Social History Tobacco Use Types Packs/Day Years Used Date Smoking Tobacco: Never Assessed Sex and Gender Information Value Date Recorded Sex Assigned at Not on file Legal Sex Male 11:26 PM EST Gender Identity Not on file Sexual Orientation Not on file Plan of Treatment Not on file
--- OUTSIDE RECORDS SUMMARY | 2024-08-30 10:47 | XMS_ITS | Data Portability ---
Author Organization [place] - [facility] Address [address] [place] [address] Assessment No assessment recorded. Plan of Treatment Reminders Order Date Submit Date Provider Last Modified By Organization Details Last Modified Time Details Appointments None recorded. Lab rapid SARS CoV + SARS CoV 2 Ag, QL IA, respiratory specimen 2023 [facility], [address] [place] [address], [id number], 13:15:09 rapid flu (A+B) 2023 024 [facility], [address] [place] [address], [id number], 13:15:10 Referral None recorded. Procedures None recorded. Surgeries None recorded. Imaging None recorded. Medication Orders None recorded. Patient TargetsNo targets recorded. Patient InstructionsNo instructions recorded. Reason for Referral None Reported. Results Created Date Observation Date Name Description Value Unit Range Abnormal Flag Note LastModifiedBy Organization Detail LastModifiedTime 04/02/1904/02/2023 rapid flu (A+B) Flu negati ve Not Available [address], [address], 04/02/2023 11:37:28 04/02/19 24 04/02/2023 rapid flu (A+B) Type Both A & B Not Available [address], [address], 04/02/2023 11:37:28 04/02/19 24 04/02/2023 rapid SARS CoV + SARS CoV 2 Ag, QL IA, respi rator y speci men SARS CoV antigen Negati ve Not Available [address], [place], [address], 04/02/2023 11:37:21 Result Notes None recorded. Problems No Known Problems Procedures Surgical History Date Name Laterality Status Provider Name and Address Organization Details Recorded Time splenectomy completed Diana Martinez [place] - [facility] 04/02/2023 11:35:54 hernia repair completed Diana Martinez [place] - [facility] 04/02/2023 11:35:59 Prostate Surgery completed Jennifer Martinez [place] - [facility] 04/02/2023 11:36:09 Imaging Results None recorded. Procedure Notes None recorded. Medical Equipment None Reported. Allergies No known drug allergies Medications Name Sig Start Date Stop Date Status Note LastModified by Organization Details LastModified Time meloxicam 15 mg tablet 2023 completed Not Available Not Available Not Available Vitals Date Recorded Body height Body mass index (BMI) Body weight Body temperature Heart rate Oxygen saturation Oxygen saturation in Arterial blood by Pulse oximetry Respiratory rate Systolic blood pressure Diastolic blood pressure Provider Name and Address Organization Details Last Updated DateTime 175.26 cm 25.4 kg/m2 53713.5 9 g 98.1 [degF] 94 /min 97 % 97 % 18 /min 138 mm[Hg] 80 mm[Hg] Diana Martinez [place] - [facility] 11:33:37 Social History Question Answer Notes LastModified by Organizat ion Details LastModified Time Tobacco Smoking Status Current Every Day Smoker Diana miranda [place] - [facility] 04/02/2023 11:35:14 Do You Have An Advance Directive? No Information not available 04/02/2023 Are You Blind Or Do You Have Difficulty Seeing? No Information not available 04/02/2023 What Is Your Level Of Caffeine Consumption? Occasional Information not available 04/02/2023 In The 14 Days Before Symptom Onset, Have You Had Close Contact With A Laboratory-confir med COVID-19 While That Case Was Ill? No Information not available 04/02/2023 In The 14 Days Before Symptom Onset, Have You Had Close Contact With A Person Who Is Under Investigation For COVID-19 While That Person Was Ill? No Information not available 04/02/2023 Have You Been To An Area Known To Be High Risk For COVID-19? No Information not available 04/02/2023 Are You Deaf Or Do You Have Serious Difficulty Hearing? No Information not available 04/02/2023 Have You Processed Blood Or Body Fluids From An Ebola Virus Disease Patient Without Appropriate PPE? No Information not available 04/02/2023 Do You Reside In Or Have You Traveled To An Area Where Ebola Virus Transmission Is Active? No Information not available 04/02/2023 Have There Been Any Changes To Your Family Or Social Situation? No Information no t available 04/02/2023 Have You Recently Or Are You Planning To Travel To An Area With Zika Virus? No Information not available 04/02/2023 Do You Have A Medical Power Of Tank Assembler? No Information not available 04/02/2023 What Was The Date Of Your Most Recent Tobacco Screening? 04/02/2023 Information not available 04/02/2023 What Is Your Relationship Status? Information not available 04/02/2023 Do You Have Smoke And Carbon Monoxide Detectors In Your Home? No Information not available 04/02/2023 At What Age Did You Start Smoking Tobacco? 15 Information not available 04/02/2023 Are You Passively Exposed To Smoke? No Information no t available 04/02/2023 Has Tobacco Cessation Counseling Been Provided? Yes Information not available 04/02/2023 On What Date Was Tobacco Cessation Counseling Provided? 04/02/2023 Information not available 04/02/2023 How Many Years Have You Smoked Tobacco? 50 Information not available 04/02/2023 Do You Have Difficulty Walking Or Climbing Stairs? No Information not available 04/02/2023 Sex: Male Functional Status Question Answer Note LastModified by Organizat ion Details LastModified Time How many times per week do you consume alcohol? Less than 1 time per week Information not available 04/02/2023 Do you use any illicit or recreational drugs? No Information not available 04/02/2023 What is your level of alcohol consumption? Occasional Information not available 04/02/2023 Do you have transportation difficulties? No Information not available 04/02/2023 Do you have difficulty doing errands alone? No Information not available 04/02/2023 Are you able to care for yourself? Yes Information n ot available 04/02/2023 Do you have difficulty dressing or bathing? No Information not available 04/02/2023 Mental Status Question Answer Note LastModified by Organization D etails LastModified Time Do you have difficulty concentrating, remembering or making decisions? No Information no t available 04/02/2023 Family History Nothing Reported. Medical History No medical history recorded. Past Encounters Encounter ID Performer Location Encounter Start Date Encounter Closed Date Diagnosis/Indication Diagnosis SNOMED-CT Code Diagnosis ICD10 Code Diagnosis Note [id number] Humphrey Myrick APRN [address] [address] 04/02/2023 10:28:17 04/02/2023 12:04:17 Upper respiratory infection 82806803 J06.9 no sign of a bacterial infection. likely viral. viruses can take 7-14 days to run their course. nasal saline and bulb syringe to remove nasal drainage to help with congestion . monitor temp. Tylenol or Motrin as needed for pain or fever. encourage fluids, water, Gatorade, power aide, Pedialyte if /tod dler/child warm salt water gargles warm fluids sore throat lozenges sleep elevated humidifier /vaporizer follow up immediatel y for new or worsening symptoms or no noticeable improvemen t over the next 48-72 hours Health Concerns Section Related Observation LastModified by Organization Detai ls LastModified Time None Recorded Concern Status LastModified by Organization Details LastModified Time None Recorded Advance Directives Directive N: Payers Insurance Date Sequence Insurance Name Policy Number Policy Kramer Covered Member ID Kramer Member ID Guarantor Name 04/02/2023 1 [facility] [id number] Riley Blankenship [id number] Riley Blankenship Notes Date Note Type Note Provider Name and Address Organization Details Recorded Time 04/02/2023 text/html 62 yr old male presents with aching, coughing, and chilling that started Sunday night. Humphrey Myrick, TREATMENT MANAGER [address], [place], [address], [place] - [facility] 04/02/2023 13:15:40
--- OUTSIDE RECORDS SUMMARY | 2024-08-30 10:47 | XMS_ITS | Encounter Summary ---
Author Organization Healthcare Address [address] [place] [address] Care Team Providers Care Hospital Carrier Name Role Phone Alda France MD Primary Care Provider [phone] Lauryn Laboy MD Unavailable Encounter Details Date Type Department Care Team (Late st Contact Info) Description 07/20/2021 Community Orders Community Practice [address] [place] [address] Alda France MD [address] [place] [address] Social History Tobacco Use Types Packs/Day Years [...] on filedocumented in this encounter Care Teams Hospital Carrier Relationship Specialty Start Date End Date Alda France MD [address] [facility] [place] [address] PCP - General 07/01/21 Lauryn Garvey MD [address] [place] [address] Resident Neurology 07/26/21 documented as of this encounter
[2024-08-30 10:58] LABS: Basophils # 0.1 K/mm3 (0-0.2); Basophils % 1.1 % (0.1-2.0); Eosinophils # 0.3 Kmm3 (0.0-0.4); Hematocrit 46.1 % (42.0-52.0); Hemoglobin 15.9 g/dL (14.1-18.0); Immature Granulocytes # 0.01 10^3uL; Immature Granulocytes % 0.1 %; Lymphocytes # 3.7 K/mm3 (0.7-4.5); Lymphocytes % 44.5 % (10-50); Mean Corpuscular HGB Conc 34.5 g/dL (31.8-35.4); Mean Corpuscular Hemoglobin 29.1 pg (27.0-31.2); Mean Corpuscular Volume 84.4 fl (80-94); Mean Platelet Volume 9.6 fl (7.4-10.4); Monocytes # 0.7 K/mm3 (0.1-1.0); Monocytes % 8.3 % (1.7-9.3); Neutrophils # 3.6 K/mm3 (1.8-7.8); Nucleated Red Blood Cells # 0 10^3/uL; Nucleated Red Blood Cells % 0 %; Platelet Count 258 K/mm3 (142-424); Red Blood Count 5.46 M/mm3 (4.60-6.20); Red Cell Distribution Width 13.2 % (11.5-17.5); Red Cell Distribution Width-SD 41.1 fL; White Blood Count 8.3 K/mm3 (4.8-10.8)
[2024-08-30 11:05] LABS: Alanine Aminotransferase 18 U/L (12-78); Albumin Level 4.1 g/dl (3.5-5.0); Albumin/Globulin Ratio 1.5 (1.1-1.8); Alkaline Phosphatase 64 U/L (38-126); Anion Gap 7.1 mEq/L (5-15); Aspartate Amino Transferase 43 U/L (17-59); Bilirubin,Total 1.2 mg/dl (0.2-1.3); Blood Urea Nitrogen 13 mg/dl (9-20); Calcium 8.6 mg/dl (8.4-10.2); Carbon Dioxide 27 mmol/L (22.0-30.0); Chloride 107 mmol/L (98-107); Chol/HDL Ratio 2.8 (1-3.5); Cholesterol 103 mg/dl (140-200); Creatinine Clearance Estimated 82 mL/min (50-200); Estimated Glomerular Filt Rate 98 ml/min (>60); GFR (African American) 118 ML/MIN (>60); Globulin 2.8 g/dL (1.3-3.2); Glucose 122 mg/dl (74-100); HDL Cholesterol 37 mg/dl (40-60); Potassium 4.1 mmoL/L (3.5-5.1); Sodium 137 mmol/L (136-145); Total Protein,Serum 6.9 g/dl (6.3-8.2); Triglycerides 102 mg/dl (30-150); VLDL Cholesterol 20 mg/dL (0-40)
[2024-08-30 11:08] LABS: Activated Partial Thrombo Time 26.6 seconds (22.8-30.6); INR 1.03 (0.9-1.1); Prothrombin Time 11.4 seconds (10.1-12.5)
[2024-08-30 11:10] LABS: Ethyl Alcohol < 10 mg/dl (0-10)
[2024-08-30] MEDS: KETOROLAC 30MG/ML VIAL 15 MG IV (11:11)
[2024-08-30] MEDS: ASPIRIN 81MG CHEWABLE TABLET 324 MG PO (11:12)
[2024-08-30] MEDS: ACETAMINOPHEN 500MG TAB 1000 MG PO (11:12)
[2024-08-30 11:16] LABS: Direct LDL Cholesterol 40.55 mg/dL (100-129)
--- NOTE | 2024-08-30 11:21 | PC.NURSE ---
gone to scans
[2024-08-30 11:24] LABS: Microscopic, Urine URINE MICROSCOPIC (MICROSCOPIC)
[2024-08-30 11:28] LABS: Appearance,Urine CLEAR (Clear); Bilirubin,Urine Negative (Negative); Blood, Urine Negative (Negative); Color,Urine YELLOW (Yellow); Glucose,Urine (UA) Negative (Negative); Ketones,Urine Negative (Negative); Leukocyte Esterase,Urine Negative (Negative); Nitrate,Urine Negative (Negative); PH,Urine 6.5 (5.0-8.5); Protein,Urine Negative (Negative); Specific Gravity, Urine 1.015 (1.005-1.030); Urobilinogen,Urine 0.2 EU/dl (0.2)
[2024-08-30] MEDS: 0.9 % SODIUM CHLORIDE 50 ML VIAL IV (11:28)
[2024-08-30] MEDS: SODIUM CHLORIDE 0.9% 10ML SYR (RAD ONLY) 10 ML IV (11:28)
[2024-08-30] MEDS: IOPAMIDOL-370 (76%);100ML BOTTLE 80 ML IV (11:28)
--- NOTE | 2024-08-30 11:37 | PC.NURSE ---
pt back from scans
--- NOTE | 2024-08-30 11:37 | PC.NURSE ---
pt back from rad
[2024-08-30 11:41] LABS: Amphetamine/Metha Screen,Urine Negative ng/ml (<1000); Benzodiazepines Screen,Urine Negative ng/ml (<200)
[2024-08-30 11:42] LABS: Barbiturates Screen,Urine Negative ng/ml (<200)
[2024-08-30 11:43] LABS: Cannabinoid Screen,Urine Negative ng/ml (<50); Cocaine Screen,Urine Negative ng/ml (<300)
[2024-08-30 11:45] LABS: Opiate Screen,Urine Negative ng/ml (<300); Phencyclidine Screen,Urine Negative ng/ml (<25)
[2024-08-30 11:45] LABS: Troponin I < 0.01 ng/ml (0.00-0.034)
[2024-08-30 11:48] LABS: Bacteria,Urine Trace /lpf; Methadone Screen,Urine Negative ng/ml (<300); Squamous Epithelial Cell,Urine Occasional #/hpf (0-5); WBC,Urine Occasional #/hpf (0-3)
--- NOTE | 2024-08-30 12:04 | PC.NURSE ---
pt to the restroom
[2024-08-30 14:44] LABS: Troponin I < 0.01 ng/ml (0.00-0.034)
== END 2024-08-30 15:06 | disposition home or self-care (01) ==
PROVIDERS: Emergency Provider Emergency Medicine
DX: R29.818 Other symptoms and signs involving the nervous system (principal); R51.9 Headache, unspecified; R42 Dizziness and giddiness; F17.210 Nicotine dependence, cigarettes, uncomplicated; Z86.73 Personal history of transient ischemic attack (TIA), and cerebral infarction without residual deficits; Z79.01 Long term (current) use of anticoagulants; E78.00 Pure hypercholesterolemia, unspecified
CPT/HCPCS: 70450; 70496; 70498; 72125; 80053; 80061; 80307; 80320; 81001; 84484; 85025; 85610; 85730; 93005; 96374; 99285; J1885; Q9967

== ENCOUNTER 2024-11-21 21:42 | Emergency (ER) | payer SELFPAY ==
--- NOTE | 2024-11-21 21:45 | ECG_ITS ---
APPROVED REPORT Exam: Resting ECG HR:64 bpm ECG Measurements Heart Rate 64 AXES OH 146 P 73 QRSd 118 QRS 78 QT 422 T 56 QTc 432 Conclusion SINUS RHYTHM MODERATE INTRAVENTRICULAR CONDUCTION DELAY [110+ ms QRS DURATION] BORDERLINE ECG Electronically signed by : TAVIA JANE, 11/22/2024 00:09:02
[2024-11-21 21:51] VITALS: BP 185/101; PULSE 64; RESP 16; TEMP 37.1; O2SAT 98; BMI 24.3
[2024-11-21 21:56] VITALS: BP 141/88; PULSE 75; RESP 16; TEMP 37.1; O2SAT 95
--- OUTSIDE RECORDS SUMMARY | 2024-11-21 21:56 | XMS_ITS | Encounter Summary ---
Author Organization Healthcare Address [address] [place] [address] Care Team Providers Care Final Rail Cutter Name Role Phone Alda France MD Primary Care Provider [phone] Lauryn Laboy MD Unavailable Encounter Details Date Type Department Care Team (Late st Contact Info) Description 07/20/2021 Community [facility] [address] [place] [address] Alda France MD [address] [facility] [place] [address] Social History Tobacco Use Types Packs/Day Years [...] on filedocumented in this encounter Care Teams Final Rail Cutter Relationship Specialty Start Date End Date Alda France MD [address] [facility] [place] [address] PCP - General 07/01/21 Lauryn Garvey MD [address] [place] [address] Resident Neurology 07/26/21 documented as of this encounter
--- OUTSIDE RECORDS SUMMARY | 2024-11-21 21:56 | XMS_ITS | Encounter Summary ---
Author Organization [facility] Address [address] [place] [address] Care Team Providers Care Coil Inspector Name Role Phone Alda France MD Primary Care Provider [phone] Lauryn Laboy MD Unavailable Encounter Details Date Type Department Care Team (Late st Contact Info) Description 10/14/2024 Abstract [facility] [address] [place] [address] Kvng Kennedy MD [address] [address] Social History Tobacco Use Types Packs/Day Years [...] Diagnoses Not on filedocumented in this encounter Additional Health Concerns Assessment Noted Time A fall risk assessment has been complete d for the patient 2021 2:30 PM EDT documented as of this encounter Care Teams Coil Inspector Relationship Specialty Start Date End Date Alda France MD [address] [facility] [place] [address] PCP - General 07/01/21 Lauryn Garvey MD [address] [facility] [address] [place] [address] Resident Neurology 07/26/21 documented as of this encounter
--- OUTSIDE RECORDS SUMMARY | 2024-11-21 21:56 | XMS_ITS | Clinical Summary ---
Author Organization [facility] Address [address] [place] [address] Care Team Providers Care Restaurant Crew Name Role Phone Alda France MD Primary Care Provider [phone] Allergies No known active allergies Medications No known medications Family History Medical History Relation Name Comments Diabetes Father Heart disease Father Stroke Father Heart disease Mother Relation Name Status Comments Father Mother Social History Tobacco Use Types Packs/Day Years Used Date Smoking Tobacco: Every Day Cigarettes 1.5 50.7 Started: 1973 Smokeless Tobacco: Never Alcohol Use Standard Drinks/Week Comments Not Currently 0 (1 standard drink = 0.6 oz pur e alcohol) Abuse Screen Answer Date Recorded Unsafe at Home or Work/School Not on file Feels Threatened by Someone? Not on file Does Anyone Keep You from Co ntacting Others or Doint Things Outside the Home? Not on file 01/05/2023 Physical Sign of Abuse Present Not on file 1 Housing Stability Answer Date Recorded Current Living Arrangements Not on file 12/24 Potentially Unsafe Housing Conditions Not on sri e 01/05/2023 Family and Community Support Answer Justo e Recorded Help with Day-to-Day Activities Not on file 01/05/2023 Lonely or Isolated Not on file 01/05/2023 Employment Answer Date Recorded Do you want help finding or keeping work or a shahida b? Not on file 01/05/2023 Disabilities Answer Date Recorded Concentrating, Remembering, or Making Decisions Difficulty Not on file 01/05/2023 Doing Errands Independently Difficulty Not on fi le 01/05/2023 Education Answer Date Recorded Help with school or training? Not on file Preferred Language Not on file 01/05/2023 Sex and Gender Information Value Date Recorded Sex Assigned at Not on file Legal Sex Male 9:33 AM EDT Gender Identity Not on file Sexual Orientation Not on file Last Filed Vital Signs Vital Sign Reading Time Taken Comments Blood Pressure 132/90 08/31/2021 11:21 AM EDT Pulse 63 08/31/2021 11:21 AM EDT Temperature - - Respiratory Rate - - Oxygen Saturation - - Inhaled Oxygen Concentration - - Weight 77.1 kg (170 lb) 08/31/2021 11:21 AM EDT Height 175.3 cm (5' 9 ) 08/31/2021 11:21 AM EDT Body Mass Index 25.1 08/31/2021 11:21 AM EDT Plan of Treatment Health Maintenance Due Date Last Done Comments ANNUAL PHYSICAL 1960 HEPATITIS C SCREENING 1961 TDAP/TD VACCINES (1 - Tdap) 1980 COLOGUARD 2006 COLON CANCER SCREENING 5 YEAR SIGMOIDOSCOPY 2006 COLONOSCOPY [address] CANCER SCREENING [address] CT COLONOGRAPHY 2006 FECAL OCCULT BLOOD TEST 2006 FIT Testing (1 year) 2006 Pneumococcal Vaccine 50+ (1 of 1 - PCV) 07/27/2011 ZOSTER VACCINE (1 of 2) 07/27/2011 COVID-19 Vaccine ( - 2023- season) 2023 INFLUENZA VACCINE 12/24/2024 Insurance [facility] Care Teams Restaurant Crew Relationship Specialty Start Date End Date Alda France MD [address] [place] [address] [place] [address] PCP - General Family Medicine 08/31/21
--- OUTSIDE RECORDS SUMMARY | 2024-11-21 21:56 | XMS_ITS | Encounter Summary ---
Author Organization Healthcare Address [address] [place] [address] Care Team Providers Care Help Desk Team Leader Name Role Phone Alda France MD Primary Care Provider [phone] Lauryn Laboy MD Unavailable Encounter Details Date Type Department Care Team (Late st Contact Info) Description 07/19/2021 Community [facility] [address] [place] [address] Elizabeth Escobedo Physician, [address] [place] [address] Social History Tobacco Use Types Packs/Day [...] on filedocumented in this encounter Care Teams Help Desk Team Leader Relationship Specialty Start Date End Date Alda France MD [address] [place] [address] [place] [address] PCP - General 07/01/21 Lauryn Garvey MD [address] [place] [address] Resident Neurology 07/26/21 documented as of this encounter
--- OUTSIDE RECORDS SUMMARY | 2024-11-21 21:56 | XMS_ITS | Clinical Summary ---
Author Organization [facility] Address [address] [place] [address], [address] [place] [address] Care Team Providers Care Gold Beater Name Role Phone Unavailable Primary Care Provider [...]
--- OUTSIDE RECORDS SUMMARY | 2024-11-21 21:56 | XMS_ITS | Encounter Summary ---
Author Organization [facility] Address [address] [place] [address] Care Team Providers Care Director Furniture Name Role Phone Alda France MD Primary Care Provider Lauryn Laboy MD Unavailable Reason for Referral * Consultation (Routine) - Closed Specialty Diagnoses / Procedures Referred By Contac t Referred To Contact Neurology Diagnoses Dizziness Alda France MD [address] [place] [address] [place] [address] Phone: tel: fax: Referral ID Status Reason Start Date Expiration Date V isits Requested Visits Authorized [id number] Closed Specialty Services Required 07/01/2021 12/31/2022 1 1 Encounter Details Date Type Department Care Team (Late st Contact Info) Description 07/01/2021 Community [facility] [address] [place] [address] Alda France MD [address] [place] [address] [place] [address] Dizziness (Primary Dx) Social History Tobacco [...] giddiness documented in this encounter Care Teams Director Furniture Relationship Specialty Start Date End Date Alda France MD [address] [facility] [place] [address] PCP - General 07/01/21 Lauryn Garvey MD [address] [facility] [address] [place] [address] Resident Neurology 07/26/21 documented as of this encounter
--- OUTSIDE RECORDS SUMMARY | 2024-11-21 21:56 | XMS_ITS | Clinical Summary ---
Author Organization [facility] Address [address] [place] [phone] Phone Care Team Providers Care Weblogic Developer Name Role Phone Alda France MD Primary Care Provider [phone] Allergies No known active allergies Medications No [...] 1964 Meningococcal B Vaccine (1 o f 4 - Increased Risk) 07/27/1971 Hepatitis C Screening 07/27/1979 DTaP/TDaP/Td (1 - Tdap) 1980 Pneumococcal Vaccine 50+ (1 of 2 - PCV) 1980 Cologuard 2006 Colon Cancer Screening 2006 Colonoscopy 2006 FIT 2006 Sigmoidoscopy 2006 Virtual Colonography 2006 Low Dose Lung Cancer Screening 07/27/2011 Zoster (1 of 2) 07/27/2011 COVID-19 Vaccine ( - 2023-2 5 season) 2023 Influenza Vaccine (#1) 2024 Hepatitis B Vaccine Aged Out No longe r eligible based on patient's age to complete this topic Insurance [address] [facility] [address] [place] [id number] [facility] PLUS [address] [facility] [address] [place] [id number] [facility] Care Teams Weblogic Developer Relationship Specialty Start Date End Date Alda France MD [address] [place] [address] [place] [address] PCP - General Family Medicine 05/03/16
--- OUTSIDE RECORDS SUMMARY | 2024-11-21 21:56 | XMS_ITS | Clinical Summary ---
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 Dizziness 07/27/2021 Encounters Date Type Department Care Team Description 10/14/2024 Abstract [facility] [address] [place] [address] Kvng Kennedy MD from Last 3 Months Social History Tobacco Use Types Packs/Day Years [...] Date Last Done Comments [facility]-Depression Screening 1961 [facility]-Hepatitis C Screening 1961 [facility]-Infant/Child/Adol SDOH Screenings 1961 [facility]- SDOH Screenings 07/27/1979 [facility]-Adult SDOH Screenings 07/27/1979 [facility]-DTaP,Tdap,and Td Vaccine s (1 - Tdap) 1980 CT Colonography 2006 Colonoscopy 2006 FIT-DNA 2006 FIT 2006 FOBT 2006 Sigmoidoscopy 2006 [facility]-Colorectal Cancer Screening 2006 [facility]-Pneumococcal Vaccine: 50 + Years (1 of 1 - PCV) 07/27/2011 [facility]-Zoster Vaccines (1 of 2) 07/27/2011 [id number]-32 Vaccine (1 - 20 24-25 season) 2023 [facility]-Influenza Vaccine (#1) 2024 [facility]-RSV Vaccine: 60+ Years o r (1 - 1-dose 75+ series) 2036 [facility]-HIV Screening Completed 10/27/2011 [facility]-Diabetes: Hemoglobin A1C Discontinued 2021 HPV Vaccines [...] 5.8(H) <5.7 % 2021 7:26 PM EDT [facility] Blood Venous blood specimen / [...] Adults <6.0% Children and Adolescents <7.5% Source: [place] [employer]. Standards of medical care in diabetes,2017. Diabetes Care.2017:40 (suppl 1):S1-S135. HbA1c assay performed by an ion-exchange chromatography method that is certified traceable to the DCCT. Monica Reyna MD LAB BLOOD ORDERABLES Final Result [facility] [address] [place] [address] from Last 3 Months or Most Recently Relevant to Health Maintenance Care Teams Seafood Team Member Relationship Specialty Start Date End Date Alda France MD [address] [place] [address] [place] [address] PCP - General 07/01/21 Lauryn Garvey MD [id number] [place] [address] Resident Neurology 07/26/21
[2024-11-21 21:57] VITALS: PULSE 64
--- NOTE | 2024-11-21 21:58 | CT_ITS ---
PROCEDURE INFORMATION: Exam: CT Abdomen And Pelvis With Contrast Exam date and time: 11/21/2024 10:39 PM Age: 64 years old Clinical indication: Other: Left abdominal pain TECHNIQUE: Imaging protocol: Computed tomography of the abdomen and pelvis with contrast. 3D rendering (Not supervised by radiologist): MIP and/or 3D reconstructed images were created by the technologist. Radiation optimization: All CT scans at this facility use at least one of these dose optimization techniques: automated exposure control; mA and/or kV adjustment per patient size (includes targeted exams where dose is matched to clinical indication); or iterative reconstruction. Contrast material: ISOVUE; Contrast volume: 80 ml; Contrast route: IV; COMPARISON: CT ANGIO CHEST PE PROTOCOL 11/21/2024 10:39 PM FINDINGS: Lungs: The chest is reported separately. Liver: There is an 18 mm segment 1 hepatic cysts. Gallbladder and biliary ducts: The gallbladder is contracted. There is no biliary ductal dilation. Pancreas: Normal. No ductal dilation. Spleen: Normal. No splenomegaly. Adrenal glands: Normal. No mass. Kidneys and ureters: No hydronephrosis or enhancing mass. Subcentimeter cortical hypodensity lateral upper pole right kidney too small to fully characterize. Stomach and bowel: Unremarkable. No obstruction. No mucosal thickening. Appendix: No evidence of appendicitis. Intraperitoneal space: Unremarkable. No free air. No significant fluid collection. Vasculature: Moderate atherosclerotic disease. No aortic aneurysm or dissection. Noncalcified plaque within the proximal several cm of the SMA without significant stenosis. Lymph nodes: Unremarkable. No enlarged lymph nodes. Urinary bladder: The bladder wall is diffusely thickened. Reproductive: A TURP defect is noted. Bones/joints: Mild degenerative changes of the spine. No acute fracture. Soft tissues: Unremarkable. IMPRESSION: 1. Bladder wall thickening which may be secondary to underdistention however, sequelae of chronic bladder outlet obstruction or cystitis in the appropriate clinical setting should be considered. 2. Other nonemergent findings as noted. COMMENTS: Consistent with the [place] [employer]'s Incidental Findings Committee white paper (J Am Samuel Radiol 2018): Any incidental renal lesion less than 1 cm or classified as too small to characterize, or any incidental cystic renal lesion characterized as simple-appearing, is likely benign. No follow-up imaging is recommended for these lesions per consensus recommendations based on imaging criteria.
--- NOTE | 2024-11-21 21:58 | CT_ITS ---
PROCEDURE INFORMATION: Exam: CTA Chest With Contrast Exam date and time: 11/21/2024 10:39 PM Age: 64 years old Clinical indication: Shortness of breath TECHNIQUE: Imaging protocol: Computed tomographic angiography of the chest with contrast. Exam focused on the arteries. 3D rendering (Not supervised by radiologist): MIP and/or 3D reconstructed images were created by the technologist. Radiation optimization: All CT scans at this facility use at least one of these dose optimization techniques: automated exposure control; mA and/or kV adjustment per patient size (includes targeted exams where dose is matched to clinical indication); or iterative reconstruction. Contrast material: ISO; Contrast volume: 80 ml; Contrast route: INTRAVENOUS (IV); COMPARISON: CT ANGIO NECK 11/21/2024 10:34 PM FINDINGS: Pulmonary arteries: Normal. No pulmonary emboli. Aorta: Unremarkable. No aortic aneurysm. No aortic dissection. Lungs: There are mild centrilobular emphysematous changes. Minimal dependent atelectatic changes are noted. 5 mm right lower lobe nodule series 7, image 82 distorted by respiratory artifact. Pleural spaces: Unremarkable. No pneumothorax. No pleural effusion. Heart: Unremarkable. No cardiomegaly. No pericardial effusion. Lymph nodes: Unremarkable. No enlarged lymph nodes. Bones/joints: Unremarkable. No acute fracture. Soft tissues: Unremarkable. Other findings: The images are degraded by respiratory motion artifact. IMPRESSION: 1. No acute findings. No pulmonary embolus. 2. 5 mm peripheral right lower lobe nodule distorted by motion artifact. For patients at low risk (minimal or absent history of smoking and of other known risk factors), no routine follow-up is indicated. For patients at high risk (history of smoking or of other known risk factors), consider optional CT Chest at 12 months. (Reference: Oneil) 3. Mild centrilobular emphysematous changes. COMMENTS: The presence of pulmonary emphysema on CT is an independent risk factor for lung cancer. In the absence of a history or active diagnosis of lung cancer, it is recommended that this patient with emphysema be evaluated for enrollment in a low dose CT lung cancer screening program. REFERENCES: Oneil Awad et al. Guidelines for Management of Incidental Pulmonary Nodules Detected on CT Images: From the Fleischner Society 2017. Radiology. 2017;284(1):228-243.
[2024-11-21] MEDS: KETOROLAC 30MG/ML VIAL 30 MG IV (22:04)
[2024-11-21] MEDS: ONDANSETRON 4MG/2ML VIAL 4 MG IV (22:05)
[2024-11-21] MEDS: 0.9 % SODIUM CHLORIDE 1000ML 1,000 ML 999 ML IV (22:05)
--- NOTE | 2024-11-21 22:06 | ED_ITS ---
Discharge Plan Disposition Patient Disposition: Home, Self-Care Prescriptions Prescriptions: No Action aspirin 81 mg Tablet,Delayed Release (Dr/Ec) 81 mg PO DAILY 90 Days Qty: 90 0RF atorvastatin 40 mg Tablet 80 mg PO HS 30 Days Qty: 60 0RF clopidogrel 75 mg Tablet 75 mg PO DAILY 90 Days Qty: 90 0RF nicotine 21 mg/24 hr Patch 24 Hour 21 mg transdermal DAILY 30 Days Qty: 28 0RF Referrals Follow up/Referrals: Provider,Referral, MD [Primary Care Provider, Medical] - See instructions Activity Restrictions/Add. Instructions Additional Instructions/Restrictions: Recommend establishing care with a primary care doctor as soon as possible and getting seen for your hypertension and other chronic illnesses. Please return to the emergency department if you develop any new or worsening symptoms or become concerned for your health. Clinical Impressions Clinical Impression: Headache, Chest pain, HTN (hypertension) Print Language Print Language: Filipino Discharge ED Provider: Obed Sarah HPI <Deysi Rosenberg (ED), REAL ESTATE EXECUTIVE ASSISTANT - Last Filed: 11/21/24 23:26> General Chief Complaint: Chest Pain Stated Complaint: Chest Pain Time Seen by Provider: 11/21/24 21:57 Mode of Arrival: Ambulatory Source of Information: Patient Description of Symptoms (Recalled from ER Triage Doc. by RN): Pt states he has been having intermittent chest pain for 2 days. Pt is on daily asa and plavix for stroke in Dec 2023. History of Present Illness HPI narrative: 64-year-old male presents to the ED today for complaint of chest pain for 2 days. Patient has had nausea. He also has had some headaches for the past month. He does get shots in his eyes once a month since he had the stroke last year in December. He is a smoker and has normals smoking shortness of breath . He is complaining of left-sided abdominal pain. He says he also has had a rash on the left lower abdomen and it has been there for a while. He has made in a doctor's appointment but has not been able to get in. He has seen Dr. Reilly and he took him off his blood pressure medicine. His blood pressure initially here with systolic 185. He is unsure if this has anything to do with his headache or not. Patient says that his right eye is blurry but he does get shots in it. Related Data Previous Rx's ?Medication ?Instructions ?Recorded aspirin 81 mg tablet,delayed 81 mg PO DAILY 90 days #9 0 tabs 01/22/24 release atorvastatin 40 mg tablet 80 mg (2 x 40 mg) PO HS 30 d ays 01/22/24 #60 tabs clopidogrel 75 mg tablet 75 mg PO DAILY 90 days #90 t abs 01/22/24 nicotine 21 mg/24 hr daily 21 mg transdermal DAILY 30 days 01/22/24 transdermal patch #28 ea Allergies Allergy/AdvReac Type Severity Reaction Status Date / Time No Known Allergies Allergy Verified 05/24/17 10:58 PFSH <Deysi Rosenberg (ED), REAL ESTATE EXECUTIVE ASSISTANT - Last Filed: 11/21/24 23:26> PFS Disclaimer: The information contained in this section may have been updated after the patient was seen, as this information can be updated by other users. Medical History Brain TIA Secondary polycythemia Constipation Pneumonia Abdominal tenderness Rupture, spleen Surgical History History of prostate surgery H/O hernia repair Social History Smoking Status: Current every day smoker tobacco type: cigarettes alcohol intake: former current occupational status: employed Travel in the last 8 weeks?: None Have you lived/traveled outside US in past 30 days?: No Contact w/someone who lives/traveled outside US past 30 days?: No Exposure to someone with infectious disease in past 14 days?: No Do you have a fever (greater than 100.4 F or 38 C)?: No Have you tested positive for COVID-19?: No Exposed to someone with COVID-19 in past 14 days?: No Do you have a sore throat?: No Do you have a cough?: No Do you have any weakness?: No Do you have any diarrhea?: No Are you experiencing any unusual bleeding?: No Do you have any muscle aches/pain?: No Do you have any abdominal pain?: No Are you experiencing loss of taste or smell?: No Other Medical History Have you received the Flu Vaccine for this season: No Have you received the Pneumonia Vaccine: No <Deysi Rosenberg (ED), REAL ESTATE EXECUTIVE ASSISTANT - Last Filed: 11/21/24 23:26> ROS Obtained: Yes Systems reviewed as appropriate & no additional complaints except as documented Constitutional Constitutional: Reports as per HPI Physical Exam <Deysi Rosenberg (ED), REAL ESTATE EXECUTIVE ASSISTANT - Last Filed: 11/21/24 23:26> General General appearance: alert and in no apparent distress Head Head exam: normocephalic Eye Eye exam: Present PERRL ENT ENT exam: Present mucous membranes moist Neck Neck exam: Present trachea midline Chest Chest inspection: Present symmetric chest wall rise Respiratory Respiratory exam: Present normal lung sounds bilaterally Cardiovascular Cardiovascular exam: Present regular rate, normal rhythm, normal heart sounds, +S1 and +S2 Abdominal Exam Abdominal exam: Present soft and normal bowel sounds Abdominal tenderness: Present LLQ Extremities Exam Extremities exam: Present normal inspection, full ROM and normal capillary refill Back Exam Back exam: Present full ROM Neurological Exam Neurological exam: Present alert and oriented X3 Psychiatric Psychiatric exam: Present normal affect and normal mood Skin Skin exam: Present warm and dry HEART Score <Deysi Rosenberg (ED), REAL ESTATE EXECUTIVE ASSISTANT - Last Filed: 11/21/24 23:26> HEART Score HEART Score assessment performed?: Yes History (anamnesis): Slightly suspicious ECG: Normal Age: 45-65 years Risk factors: 1-2 risk factors Troponin: </= normal limit HEART Score: 2 <Vincenzo Birch MD - Last Filed: 11/21/24 23:32> HEART Score HEART Score: 2 <Obed Sarah MD - Last Filed: 11/22/24 02:09> HEART Score HEART Score: 2 Critical Care <Deysi Rosenberg (ED), REAL ESTATE EXECUTIVE ASSISTANT - Last Filed: 11/21/24 23:26> Critical Care Time Critical Care Time: No Medical Decision Making <Deysi Rosenberg (ED), REAL ESTATE EXECUTIVE ASSISTANT - Last Filed: 11/21/24 23:26> Jamie Inquiry Pt receiving controlled substance: No Jamie was queried for this patient: No Vital Signs Vital Signs: 11/21/24 21:51 11/21/24 21:56 11/21/24 21:57 Temperature 98.8 F 98.8 F Temperature Source Oral Oral Pulse Rate 75 64 Pulse Rate [Left] 64 Respiratory Rate 16 16 Blood Pressure 141/88 H Blood Pressure [Right Arm] 185/101 H Blood Pressure Mean [Right Arm] 129 Blood Pressure Source Automatic Cuff Blood Pressure Source [Right Arm] Automatic Cuff Blood Pressure Position Sitting Blood Pressure Position [Right Arm] Sitting 02 Sat by Pulse Oximetry 98 95 Oxygen Delivery Method Room Air Room Air 11/22/24 02:00 Temperature 98.5 F Temperature Source Oral Pulse Rate 49 L Pulse Rate [Left] Respiratory Rate 18 Blood Pressure 138/89 Blood Pressure [Right Arm] Blood Pressure Mean [Right Arm] Blood Pressure Source Blood Pressure Source [Right Arm] Blood Pressure Position Supine Blood Pressure Position [Right Arm] 02 Sat by Pulse Oximetry Oxygen Delivery Method Room Air Lab Data Labs: Lab Results 11/21/24 21:50: WBC 10.9 H, RBC 5.63, Hgb 16.6, Hct 48.0, MCV 85.3, MCH 29.5, MCHC 34.6, RDW 13.1, Plt Count 279, MPV 9.6, Neut % (Auto) 34.8 L, Lymph % (Auto) 52.6 H, Citrus % (Auto) 7.4, Eos % (Auto) 4.2, Baso % (Auto) 0.9, Neut # (Auto) 3.8, Lymph # (Auto) 5.7 H, Citrus # (Auto) 0.8, Eos # (Auto) 0.5 H, Baso # (Auto) 0.1, Sodium 139, Potassium 3.8, Chloride 104, Carbon Dioxide 28, Anion Gap 10.8, BUN 16, Creatinine 0.90, Estimated Creat Clear 82, Estimated GFR 85, Est GFR ( Amer) 103, Glucose 85, Calcium 9.1, Magnesium 1.9, Total Bilirubin 1.0, AST 32, ALT 23, Alkaline Phosphatase 61, Troponin I < 0.01, Total Protein 7.3, Albumin 4.2, Globulin 3.1, Albumin/Globulin Ratio 1.4, Lipase 63 11/22/24 00:50: Troponin I < 0.01 11/21/24 21:50 11/21/24 21:50 Response Orders (Tests/Meds): ED MEDICATIONS Discontinued Medications Generic Name Dose Route Start Last Admin Trade Name Freq PRN Reason Stop Dose Admin Sodium Chloride 1,000 mls @ 999 mls/hr 11/21/24 21:57 11/22/24 00:17 Sod Chlor 0.9% 1000ml Bag IV 11/21/24 22:57 Infused .Q1H1M ONE Infusion Iopamidol 160 ml 11/21/24 22:32 11/21/24 22:33 Iopamidol-370 (76%);100ml Bottle IV 11/21/24 22:33 160 ml ONCE ONE Administration Ketorolac Tromethamine 30 mg 11/21/24 21:57 11/21/24 22:04 Ketorolac 30mg/Ml Vial IV 11/21/24 21:58 30 mg ONCE ONE Administration Ondansetron HCl 4 mg 11/21/24 21:57 11/21/24 22:05 Ondansetron 4mg/2ml Vial IV 11/21/24 21:58 4 mg ONCE ONE Administration Sodium Chloride 50 ml 11/21/24 22:32 11/21/24 22:33 0.9 % Sodium Chloride 50 Ml Vial IV 11/21/24 22:33 50 ml ONCE ONE Administration Sodium Chloride 10 ml 11/21/24 22:32 11/21/24 22:33 Sodium Chloride 0.9% 10ml Syr (Rad Only) IV 12/21/24 22:31 10 ml NEEDED PRN Administration Maintain IV Site Sodium Chloride 50 ml 11/21/24 22:36 11/21/24 22:37 0.9 % Sodium Chloride 50 Ml Vial IV 11/21/24 22:37 50 ml ONCE ONE Administration ORDERS Category Date Time Status CT abdomen pelvis w con Stat Cat Scan 11/21/24 21:[address] angio head Stat Cat Scan 11/21/24 22:[address] angio neck Stat Cat Scan 11/21/24 22:[address] head/brain wo con Stat Cat Scan 11/21/24 22:26 Completed CTA Chest [CT angio chest PE protocol] Stat Cat Scan 11/21/24 21:58 Completed CBC [Complete Blood Count Auto Diff] Stat Lab 11/21/24 21:50 Results Comprehensive Metabolic Panel Stat Lab 11/21/24 21:50 Completed Lipase Stat Lab 11/21/24 21:50 Completed Magnesium Stat Lab 11/21/24 21:50 Completed Trop I [Troponin I] Stat Lab 11/21/24 21:50 Completed Troponin I Q3H Lab 11/22/24 00:50 Completed MDM Narrative Medical Decision Narrative: patient is a 64-year-old male presenting to the emergency department for evaluation of chest pain for 2 days, headache, nausea. Patient is hemodynamically stable and nontoxic-appearing upon arrival, afebrile. Differential diagnosis includes ACS, headache related to high blood pressure, arteritis, among others. Workup will be conducted with hematologic labs, specific imaging. Initial inventions include analgesics. <Vincenzo Birch MD - Last Filed: 11/21/24 23:32> Vital Signs Vital Signs: 11/21/24 21:51 11/21/24 21:56 11/21/24 21:57 Temperature 98.8 F 98.8 F Temperature Source Oral Oral Pulse Rate 75 64 Pulse Rate [Left] 64 Respiratory Rate 16 16 Blood Pressure 141/88 H Blood Pressure [Right Arm] 185/101 H Blood Pressure Mean [Right Arm] 129 Blood Pressure Source Automatic Cuff Blood Pressure Source [Right Arm] Automatic Cuff Blood Pressure Position Sitting Blood Pressure Position [Right Arm] Sitting 02 Sat by Pulse Oximetry 98 95 Oxygen Delivery Method Room Air Room Air 11/22/24 02:00 Temperature 98.5 F Temperature Source Oral Pulse Rate 49 L Pulse Rate [Left] Respiratory Rate 18 Blood Pressure 138/89 Blood Pressure [Right Arm] Blood Pressure Mean [Right Arm] Blood Pressure Source Blood Pressure Source [Right Arm] Blood Pressure Position Supine Blood Pressure Position [Right Arm] 02 Sat by Pulse Oximetry Oxygen Delivery Method Room Air Lab Data Labs: Lab Results 11/21/24 21:50: WBC 10.9 H, RBC 5.63, Hgb 16.6, Hct 48.0, MCV 85.3, MCH 29.5, MCHC 34.6, RDW 13.1, Plt Count 279, MPV 9.6, Neut % (Auto) 34.8 L, Lymph % (Auto) 52.6 H, Citrus % (Auto) 7.4, Eos % (Auto) 4.2, Baso % (Auto) 0.9, Neut # (Auto) 3.8, Lymph # (Auto) 5.7 H, Citrus # (Auto) 0.8, Eos # (Auto) 0.5 H, Baso # (Auto) 0.1, Sodium 139, Potassium 3.8, Chloride 104, Carbon Dioxide 28, Anion Gap 10.8, BUN 16, Creatinine 0.90, Estimated Creat Clear 82, Estimated GFR 85, Est GFR ( Amer) 103, Glucose 85, Calcium 9.1, Magnesium 1.9, Total Bilirubin 1.0, AST 32, ALT 23, Alkaline Phosphatase 61, Troponin I < 0.01, Total Protein 7.3, Albumin 4.2, Globulin 3.1, Albumin/Globulin Ratio 1.4, Lipase 63 11/22/24 00:50: Troponin I < 0.01 Response Orders (Tests/Meds): ED MEDICATIONS Discontinued Medications Generic Name Dose Route Start Last Admin Trade Name Freq PRN Reason Stop Dose Admin Sodium Chloride 1,000 mls @ 999 mls/hr 11/21/24 21:57 11/22/24 00:17 Sod Chlor 0.9% 1000ml Bag IV 11/21/24 22:57 Infused .Q1H1M ONE Infusion Iopamidol 160 ml 11/21/24 22:32 11/21/24 22:33 Iopamidol-370 (76%);100ml Bottle IV 11/21/24 22:33 160 ml ONCE ONE Administration Ketorolac Tromethamine 30 mg 11/21/24 21:57 11/21/24 22:04 Ketorolac 30mg/Ml Vial IV 11/21/24 21:58 30 mg ONCE ONE Administration Ondansetron HCl 4 mg 11/21/24 21:57 11/21/24 22:05 Ondansetron 4mg/2ml Vial IV 11/21/24 21:58 4 mg ONCE ONE Administration Sodium Chloride 50 ml 11/21/24 22:32 11/21/24 22:33 0.9 % Sodium Chloride 50 Ml Vial IV 11/21/24 22:33 50 ml ONCE ONE Administration Sodium Chloride 10 ml 11/21/24 22:32 11/21/24 22:33 Sodium Chloride 0.9% 10ml Syr (Rad Only) IV 12/21/24 22:31 10 ml NEEDED PRN Administration Maintain IV Site Sodium Chloride 50 ml 11/21/24 22:36 11/21/24 22:37 0.9 % Sodium Chloride 50 Ml Vial IV 11/21/24 22:37 50 ml ONCE ONE Administration ORDERS Category Date Time Status CT abdomen pelvis w con Stat Cat Scan 11/21/24 21:[address] angio head Stat Cat Scan 11/21/24 22:[address] angio neck Stat Cat Scan 11/21/24 22:[address] head/brain wo con Stat Cat Scan 11/21/24 22:26 Completed CTA Chest [CT angio chest PE protocol] Stat Cat Scan 11/21/24 21:58 Completed CBC [Complete Blood Count Auto Diff] Stat Lab 11/21/24 21:50 Results Comprehensive Metabolic Panel Stat Lab 11/21/24 21:50 Completed Lipase Stat Lab 11/21/24 21:50 Completed Magnesium Stat Lab 11/21/24 21:50 Completed Trop I [Troponin I] Stat Lab 11/21/24 21:50 Completed Troponin I Q3H Lab 11/22/24 00:50 Completed ECG Data Tracing #1: ECG Narrative: Independently inter by me rate is 64, rhythm is regular, axis is normal, no ST elevation in anatomical contiguous leads, QTc 432. MDM Narrative Medical Decision Narrative: patient is a 64-year-old male presenting to the emergency department for evaluation of chest pain for 2 days, headache, nausea. Patient is hemodynamically stable and nontoxic-appearing upon arrival, afebrile. Differential diagnosis includes ACS, headache related to high blood pressure, arteritis, among others. Workup will be conducted with hematologic labs, specific imaging. Initial inventions include analgesics. Vincenzo Birch: I was consulted by the SHOSHANA, and we discussed the complexity of the problems being addressed. I approved the treatment and management plan for this patient's care in the emergency department, thus performing a substantive portion of the medical decision making. Workup and imaging largely pending at time of transfer of care to the oncoming physician, Dr. Sarah. I agree with the initial workup and imaging. <Obed Sarah MD - Last Filed: 11/22/24 02:09> Vital Signs Vital Signs: 11/21/24 21:51 11/21/24 21:56 11/21/24 21:57 Temperature 98.8 F 98.8 F Temperature Source Oral Oral Pulse Rate 75 64 Pulse Rate [Left] 64 Respiratory Rate 16 16 Blood Pressure 141/88 H Blood Pressure [Right Arm] 185/101 H Blood Pressure Mean [Right Arm] 129 Blood Pressure Source Automatic Cuff Blood Pressure Source [Right Arm] Automatic Cuff Blood Pressure Position Sitting Blood Pressure Position [Right Arm] Sitting 02 Sat by Pulse Oximetry 98 95 Oxygen Delivery Method Room Air Room Air 11/22/24 02:00 Temperature 98.5 F Temperature Source Oral Pulse Rate 49 L Pulse Rate [Left] Respiratory Rate 18 Blood Pressure 138/89 Blood Pressure [Right Arm] Blood Pressure Mean [Right Arm] Blood Pressure Source Blood Pressure Source [Right Arm] Blood Pressure Position Supine Blood Pressure Position [Right Arm] 02 Sat by Pulse Oximetry Oxygen Delivery Method Room Air Lab Data Labs: Lab Results 11/21/24 21:50: WBC 10.9 H, RBC 5.63, Hgb 16.6, Hct 48.0, MCV 85.3, MCH 29.5, MCHC 34.6, RDW 13.1, Plt Count 279, MPV 9.6, Neut % (Auto) 34.8 L, Lymph % (Auto) 52.6 H, Citrus % (Auto) 7.4, Eos % (Auto) 4.2, Baso % (Auto) 0.9, Neut # (Auto) 3.8, Lymph # (Auto) 5.7 H, Citrus # (Auto) 0.8, Eos # (Auto) 0.5 H, Baso # (Auto) 0.1, Sodium 139, Potassium 3.8, Chloride 104, Carbon Dioxide 28, Anion Gap 10.8, BUN 16, Creatinine 0.90, Estimated Creat Clear 82, Estimated GFR 85, Est GFR ( Amer) 103, Glucose 85, Calcium 9.1, Magnesium 1.9, Total Bilirubin 1.0, AST 32, ALT 23, Alkaline Phosphatase 61, Troponin I < 0.01, Total Protein 7.3, Albumin 4.2, Globulin 3.1, Albumin/Globulin Ratio 1.4, Lipase 63 11/22/24 00:50: Troponin I < 0.01 Response Orders (Tests/Meds): ED MEDICATIONS Discontinued Medications Generic Name Dose Route Start Last Admin Trade Name Alina PRN Reason Stop Dose Admin Sodium Chloride 1,000 mls @ 999 mls/hr 11/21/24 21:57 11/22/24 00:17 Sod Chlor 0.9% 1000ml Bag IV 11/21/24 22:57 Infused .Q1H1M ONE Infusion Iopamidol 160 ml 11/21/24 22:32 11/21/24 22:33 Iopamidol-370 (76%);100ml Bottle IV 11/21/24 22:33 160 ml ONCE ONE Administration Ketorolac Tromethamine 30 mg 11/21/24 21:57 11/21/24 22:04 Ketorolac 30mg/Ml Vial IV 11/21/24 21:58 30 mg ONCE ONE Administration Ondansetron HCl 4 mg 11/21/24 21:57 11/21/24 22:05 Ondansetron 4mg/2ml Vial IV 11/21/24 21:58 4 mg ONCE ONE Administration Sodium Chloride 50 ml 11/21/24 22:32 11/21/24 22:33 0.9 % Sodium Chloride 50 Ml Vial IV 11/21/24 22:33 50 ml ONCE ONE Administration Sodium Chloride 10 ml 11/21/24 22:32 11/21/24 22:33 Sodium Chloride 0.9% 10ml Syr (Rad Only) IV 12/21/24 22:31 10 ml NEEDED PRN Administration Maintain IV Site Sodium Chloride 50 ml 11/21/24 22:36 11/21/24 22:37 0.9 % Sodium Chloride 50 Ml Vial IV 11/21/24 22:37 50 ml ONCE ONE Administration ORDERS Category Date Time Status CT abdomen pelvis w con Stat Cat Scan 11/21/24 21:[address] angio head Stat Cat Scan 11/21/24 22:[address] angio neck Stat Cat Scan 11/21/24 22:[address] head/brain wo con Stat Cat Scan 11/21/24 22:26 Completed CTA Chest [CT angio chest PE protocol] Stat Cat Scan 11/21/24 21:58 Completed CBC [Complete Blood Count Auto Diff] Stat Lab 11/21/24 21:50 Results Comprehensive Metabolic Panel Stat Lab 11/21/24 21:50 Completed Lipase Stat Lab 11/21/24 21:50 Completed Magnesium Stat Lab 11/21/24 21:50 Completed Trop I [Troponin I] Stat Lab 11/21/24 21:50 Completed Troponin I Q3H Lab 11/22/24 00:50 Completed MDM Narrative Medical Decision Narrative: patient is a 64-year-old male presenting to the emergency department for evaluation of chest pain for 2 days, headache, nausea. Patient is hemodynamically stable and nontoxic-appearing upon arrival, afebrile. Differential diagnosis includes ACS, headache related to high blood pressure, arteritis, among others. Workup will be conducted with hematologic labs, specific imaging. Initial inventions include analgesics. Vincenzo Birch: I was consulted by the SHOSHANA, and we discussed the complexity of the problems being addressed. I approved the treatment and management plan for this patient's care in the emergency department, thus performing a substantive portion of the medical decision making. Workup and imaging largely pending at time of transfer of care to the oncoming physician, Dr. Sarah. I agree with the initial workup and imaging. Keara GUAN: I assumed care of the patient at the time of handoff from the prior provider. On reassessment patient reports symptomatic resolution. His headache and chest pain are gone. CT imaging was independently interpreted by me and showed no evidence of intracranial bleeding or mass lesion. 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 On CT of the chest and belly there is no evidence of PE or intra- abdominal pathology. Laboratory results were independently interpreted by me and significant for negative troponin x 2, minimal leukocytosis, no significant electrolyte derangement, normal renal function. Interactive discussion was had with patient on his presentation. He is encouraged to follow-up with PCP. Patient discharged in stable condition.
--- NOTE | 2024-11-21 22:08 | CT_ITS ---
PROCEDURE INFORMATION: Exam: CTA Neck Without And With Contrast Exam date and time: 11/21/2024 10:34 PM Age: 64 years old Clinical indication: Other: Headache/hypertension TECHNIQUE: Imaging protocol: Computed tomographic angiography of the neck without and with contrast. Exam focused on the cervical segments of the vasculature. 3D rendering (Not supervised by radiologist): MIP and/or 3D reconstructed images were created by the technologist. Radiation optimization: All CT scans at this facility use at least one of these dose optimization techniques: automated exposure control; mA and/or kV adjustment per patient size (includes targeted exams where dose is matched to clinical indication); or iterative reconstruction. Contrast material: ISOVUE; Contrast volume: 80 ml; Contrast route: INTRAVENOUS (IV); COMPARISON: CT ANGIO NECK 08/30/2024 11:32 AM FINDINGS: Right common carotid artery: No stenosis. No dissection or occlusion. Right internal carotid artery: No stenosis of the extracranial segment. No dissection or occlusion. Right external carotid artery: No occlusion or stenosis of the origin. Left common carotid artery: No stenosis. No dissection or occlusion. Left internal carotid artery: No stenosis of the extracranial segment. No dissection or occlusion. Left external carotid artery: No occlusion or stenosis of the origin. Right vertebral artery: No stenosis. No dissection or occlusion. Left vertebral artery: No stenosis. No dissection or occlusion. Soft tissues: Normal. No significant soft tissue swelling. Bones/joints: No acute fracture. Lungs: Partially calcified probable granuloma in the anterior left upper lobe is unchanged. IMPRESSION: No acute vascular abnormality. REFERENCES: NASCET CRITERIA. The degree of stenosis in the cervical segment of the internal carotid artery is based on NASCET criteria. Normal is no stenosis. Mild is less than 50% stenosis. Moderate is 50-69% stenosis. Severe is 70% to 99% stenosis. Total occlusion is no detectable patent lumen.
--- NOTE | 2024-11-21 22:08 | CT_ITS ---
PROCEDURE INFORMATION: Exam: CTA Head Without And With Contrast, Arteriography Exam date and time: 11/21/2024 10:34 PM Age: 64 years old Clinical indication: Other: Headache TECHNIQUE: Imaging protocol: Computed tomographic angiography of the head without and with contrast. Exam focused on the arteries. 3D rendering (Not supervised by radiologist): MIP and/or 3D reconstructed images were created by the technologist. Radiation optimization: All CT scans at this facility use at least one of these dose optimization techniques: automated exposure control; mA and/or kV adjustment per patient size (includes targeted exams where dose is matched to clinical indication); or iterative reconstruction. Contrast material: ISOVUE; Contrast volume: 80 ml; Contrast route: INTRAVENOUS (IV); COMPARISON: CT HEAD/BRAIN WO CON 11/21/2024 10:32 PM FINDINGS: ANTERIOR CIRCULATION: Right internal carotid artery: Intracranial segment is patent with no significant stenosis or occlusion. No aneurysm. Right middle cerebral artery: There is a minimal focal stenosis of the right MCA at the bifurcation which is most likely due to atherosclerosis, series 1001, image 53. Right anterior cerebral artery: No occlusion or significant stenosis. No aneurysm. Left internal carotid artery: Intracranial segment is patent with no significant stenosis. No aneurysm. Left middle cerebral artery: There is a focal stenosis of the M1 segment of the left MCA, series 8 images 397 through 399 and series 1001 images 51 through 53, which is most likely due to atherosclerosis. Left anterior cerebral artery: No occlusion or significant stenosis. No aneurysm. POSTERIOR CIRCULATION: Right vertebral artery: No occlusion or significant stenosis. No aneurysm. Left vertebral artery: No occlusion or significant stenosis. No aneurysm. Basilar artery: No occlusion or significant stenosis. No aneurysm. Right posterior cerebral artery: No occlusion or significant stenosis. No aneurysm. Left posterior cerebral artery: No occlusion or significant stenosis. No aneurysm. HEAD: Brain: Normal. No hemorrhage. Unremarkable white matter. No mass effect. Cerebral ventricles: Normal. No ventriculomegaly. Bones: Unremarkable. No acute fracture. Paranasal sinuses: Visualized sinuses are normal. No fluid levels. Mastoid air cells: Visualized mastoids are normal. No mastoid effusion. Soft tissues: Unremarkable. IMPRESSION: Focal stenoses of both MCAs, likely due to atherosclerosis. No other evidence of occlusion or dissection.
[2024-11-21 22:11] LABS: Hematocrit 48.0 % (42.0-52.0); Hemoglobin 16.6 g/dL (14.1-18.0); Immature Granulocytes % 0.1 %; Mean Corpuscular HGB Conc 34.6 g/dL (31.8-35.4); Mean Corpuscular Hemoglobin 29.5 pg (27.0-31.2); Mean Corpuscular Volume 85.3 fl (80-94); Nucleated Red Blood Cells % 0 %; Platelet Count 279 K/mm3 (142-424); Red Blood Count 5.63 M/mm3 (4.60-6.20); Red Cell Distribution Width-SD 40.7 fL; White Blood Count 10.9 K/mm3 (4.8-10.8)
[2024-11-21 22:19] LABS: Alanine Aminotransferase 23 U/L (12-78); Albumin Level 4.2 g/dl (3.5-5.0); Albumin/Globulin Ratio 1.4 (1.1-1.8); Alkaline Phosphatase 61 U/L (38-126); Anion Gap 10.8 mEq/L (5-15); Aspartate Amino Transferase 32 U/L (17-59); Bilirubin,Total 1.0 mg/dl (0.2-1.3); Blood Urea Nitrogen 16 mg/dl (9-20); Calcium 9.1 mg/dl (8.4-10.2); Carbon Dioxide 28 mmol/L (22.0-30.0); Chloride 104 mmol/L (98-107); Creatinine Clearance Estimated 82 mL/min (50-200); Creatinine,Serum 0.90 mg/dl (0.66-1.25); Estimated Glomerular Filt Rate 85 ml/min (>60); GFR (African American) 103 ML/MIN (>60); Globulin 3.1 g/dL (1.3-3.2); Glucose 85 mg/dl (74-100); Lipase 63 U/L (23-300); Magnesium 1.9 mg/dl (1.6-2.3); Potassium 3.8 mmoL/L (3.5-5.1); Sodium 139 mmol/L (136-145); Total Protein,Serum 7.3 g/dl (6.3-8.2)
--- NOTE | 2024-11-21 22:26 | CT_ITS ---
PROCEDURE INFORMATION: Exam: CT Head Without Contrast Exam date and time: 11/21/2024 10:32 PM Age: 64 years old Clinical indication: Other: Headaches TECHNIQUE: Imaging protocol: Computed tomography of the head without contrast. Radiation optimization: All CT scans at this facility use at least one of these dose optimization techniques: automated exposure control; mA and/or kV adjustment per patient size (includes targeted exams where dose is matched to clinical indication); or iterative reconstruction. COMPARISON: CT HEAD/BRAIN WO CON 08/30/2024 11:27 AM FINDINGS: Brain: No hemorrhage. Unremarkable white matter. No mass effect. Cerebral ventricles: No ventriculomegaly. Paranasal sinuses: Visualized sinuses are unremarkable. No fluid levels. Mastoid air cells: Visualized mastoid air cells are well aerated. Bones: Unremarkable. No acute fracture. Soft tissues: Unremarkable. IMPRESSION: No acute intracranial abnormality.
[2024-11-21 22:31] LABS: Troponin I < 0.01 ng/ml (0.00-0.034)
[2024-11-21] MEDS: 0.9 % SODIUM CHLORIDE 50 ML VIAL IV ×2 (22:33→22:37)
[2024-11-21] MEDS: SODIUM CHLORIDE 0.9% 10ML SYR (RAD ONLY) 10 ML IV (22:33)
[2024-11-21] MEDS: IOPAMIDOL-370 (76%);100ML BOTTLE 160 ML IV (22:33)
[2024-11-22 01:38] LABS: Troponin I < 0.01 ng/ml (0.00-0.034)
[2024-11-22 02:00] VITALS: BP 138/89; PULSE 49; RESP 18; TEMP 36.9; O2SAT 96
[2024-11-22 05:31] LABS: Total Cells Counted 100
[2024-11-22 05:32] LABS: RBC Morphology Normal
== END 2024-11-22 02:01 | disposition home or self-care (01) ==
PROVIDERS: Nurse Practitioner; Emergency Provider Emergency Medicine
DX: R07.9 Chest pain, unspecified (principal); R51.9 Headache, unspecified; I67.2 Cerebral atherosclerosis; I10 Essential (primary) hypertension; R11.0 Nausea; F17.210 Nicotine dependence, cigarettes, uncomplicated
CPT/HCPCS: 70450; 70496; 70498; 71275; 74177; 80053; 83690; 83735; 84484; 85007; 85025; 85027; 93005; 96361; 96374; 96375; 99284; 99285; J1885; J2405; J7030; Q9967